=== PATIENT | male | born 1950 | race Caucasian/White ===

== ENCOUNTER 2023-02-24 07:50 | Outpatient (OUT) | payer MEDICARE, OTHER, SELFPAY ==
[2023-02-24 08:47] LABS: Basophils Percent Auto 0.5 % (0.2-2.0); Eosinophils Absolute Auto 0.3 10^3/uL (0.0-0.7); Eosinophils Percent Auto 5.3 % (0.9-7.0); Hematocrit 43.1 % (42.0-54.0); Immature Granulocytes Abs Auto 0.01 10^3/uL (0.00-0.03); Immature Granulocytes Pct Auto 0.2 % (0.0-0.5); Lymphocytes Absolute Auto 1.4 10^3/uL (1.2-3.8); Lymphocytes Percent Auto 24.5 % (20.5-60.0); Mean Corpuscular HGB Conc 32.5 g/dL (29.9-35.2); Mean Corpuscular Hemoglobin 32.3 pg (25.9-34.0); Mean Corpuscular Volume 99.5 fL (80.0-94.0); Mean Platelet Volume 11.1 fL (9.5-13.5); Monocytes Absolute Auto 0.6 10^3/uL (0.3-0.8); Monocytes Percent Auto 9.6 % (1.7-12.0); Neutrophils Absolute Auto 3.5 10^3/uL (1.4-6.5); Neutrophils Percent Auto 59.9 % (43.0-75.0); Platelet Count 142 10^3/uL (150-450); Red Blood Count 4.33 10^6/uL (4.70-6.10); Red Cell Distribution Width 13.1 % (11.0-15.0); White Blood Count 5.8 10^3/uL (4.0-11.0)
[2023-02-24 12:28] LABS: Prostate Specific Antigen Scrn 1.41 ng/mL (<=4.00)
[2023-02-24 12:46] LABS: Alanine Aminotransferase 23 U/L (16-63); Anion Gap 13.8; BUN Creatinine Ratio 21.4; Calcium 8.6 mg/dL (8.5-10.1); Carbon Dioxide 26.6 mmol/L (21.0-32.0); Chloride 106 mmol/L (98-107); Chol HDL Ratio 3.3; Cholesterol 178 mg/dL (<=200); Estimated GFR (African America >60 (>=60); Estimated GFR (Non-African Ame >60 (>=60); Glucose 89 mg/dL (74-106); HDL Cholesterol 54 mg/dL (40-60); LDL Cholesterol Calculated 112.8 mg/dL; Potassium 4.4 mmol/L (3.5-5.1); Sodium 142 mmol/L (136-145); Triglycerides 56 mg/dL (<=150); VLDL CHOLESTEROL 11.2 mg/dL
== END 2023-02-24 07:51 | disposition home or self-care (01) ==
LOC: LAB 07:50
PROVIDERS: PCP Internal Medicine; Visit Provider Internal Medicine
DX: Z79.899 Other long term (current) drug therapy (principal); E78.00 Pure hypercholesterolemia, unspecified; I10 Essential (primary) hypertension; Z12.5 Encounter for screening for malignant neoplasm of prostate
CPT/HCPCS: 36415; 80048; 80061; 84460; 85025; G0103

== ENCOUNTER 2024-03-01 11:32 | Outpatient (OUT) | payer MEDICARE, OTHER, SELFPAY ==
[2024-03-01 12:31] LABS: Basophils Percent Auto 0.5 % (0.2-2.0); Eosinophils Absolute Auto 0.1 10^3/uL (0.0-0.7); Eosinophils Percent Auto 1.4 % (0.9-7.0); Hematocrit 39.4 % (42.0-54.0); Hemoglobin 13.5 g/dL (14.0-18.0); Immature Granulocytes Abs Auto 0.02 10^3/uL (0.00-0.03); Immature Granulocytes Pct Auto 0.4 % (0.0-0.5); Lymphocytes Percent Auto 17.4 % (20.5-60.0); Mean Corpuscular HGB Conc 34.3 g/dL (29.9-35.2); Mean Corpuscular Volume 93.4 fL (80.0-94.0); Mean Platelet Volume 10.5 fL (9.5-13.5); Monocytes Absolute Auto 0.5 10^3/uL (0.3-0.8); Monocytes Percent Auto 8.7 % (1.7-12.0); Neutrophils Percent Auto 71.6 % (43.0-75.0); Platelet Count 199 10^3/uL (150-450); Red Blood Count 4.22 10^6/uL (4.70-6.10); Red Cell Distribution Width 12.7 % (11.0-15.0); White Blood Count 5.5 10^3/uL (4.0-11.0)
[2024-03-01 12:37] LABS: Alanine Aminotransferase 20 U/L (16-63); Albumin Globulin Ratio 1.3; Albumin Level 3.9 g/dL (3.4-5.0); Alkaline Phosphatase 91 U/L (46-116); Aspartate Amino Transferase 16 U/L (15-37); BUN Creatinine Ratio 12.5; Bilirubin Total 0.9 mg/dL (0.2-1.0); Calcium 8.9 mg/dL (8.5-10.1); Chloride 106 mmol/L (98-107); Chol HDL Ratio 2.9; Cholesterol 162 mg/dL (<=200); Estimated GFR (African America >60 (>=60); Estimated GFR (Non-African Ame >60 (>=60); Globulin 3.1 g/dL; Glucose 94 mg/dL (74-106); HDL Cholesterol 56 mg/dL (40-60); Potassium 4.2 mmol/L (3.5-5.1); Sodium 142 mmol/L (136-145); Triglycerides 50 mg/dL (<=150)
[2024-03-01 12:55] LABS: Anion Gap 14.2
[2024-03-01 13:28] LABS: Prostate Specific Antigen Scrn 1.77 ng/mL (<=4.00)
== END 2024-03-01 11:33 | disposition home or self-care (01) ==
LOC: LAB 11:34
PROVIDERS: PCP Internal Medicine; Visit Provider Internal Medicine
DX: E78.00 Pure hypercholesterolemia, unspecified (principal); I10 Essential (primary) hypertension; Z12.5 Encounter for screening for malignant neoplasm of prostate
CPT/HCPCS: 36415; 80053; 80061; 85025; G0103

== ENCOUNTER 2024-06-06 10:08 | Outpatient (OUT) | payer MEDICARE, OTHER, SELFPAY ==
[2024-06-06 10:25] LABS: Basophils Percent Auto 0.8 % (0.2-2.0); Eosinophils Absolute Auto 0.3 10^3/uL (0.0-0.7); Eosinophils Percent Auto 5.5 % (0.9-7.0); Hematocrit 39.6 % (42.0-54.0); Hemoglobin 13.6 g/dL (14.0-18.0); Immature Granulocytes Abs Auto 0.01 10^3/uL (0.00-0.03); Immature Granulocytes Pct Auto 0.2 % (0.0-0.5); Lymphocytes Absolute Auto 1.5 10^3/uL (1.2-3.8); Lymphocytes Percent Auto 28.9 % (20.5-60.0); Mean Corpuscular HGB Conc 34.3 g/dL (29.9-35.2); Mean Corpuscular Hemoglobin 32.1 pg (25.9-34.0); Mean Corpuscular Volume 93.4 fL (80.0-94.0); Mean Platelet Volume 10.2 fL (9.5-13.5); Monocytes Absolute Auto 0.5 10^3/uL (0.3-0.8); Monocytes Percent Auto 10.2 % (1.7-12.0); Neutrophils Absolute Auto 2.9 10^3/uL (1.4-6.5); Neutrophils Percent Auto 54.4 % (43.0-75.0); Platelet Count 196 10^3/uL (150-450); Red Blood Count 4.24 10^6/uL (4.70-6.10); Red Cell Distribution Width 12.9 % (11.0-15.0); White Blood Count 5.3 10^3/uL (4.0-11.0)
[2024-06-06 10:52] LABS: Percent Iron Saturation 61.8 %
[2024-06-07 05:07] LABS: Vitamin B12 679 pg/mL (232-1245)
== END 2024-06-06 10:09 | disposition home or self-care (01) ==
LOC: LAB 10:09
PROVIDERS: PCP Internal Medicine; Visit Provider Internal Medicine
DX: D64.9 Anemia, unspecified (principal)
CPT/HCPCS: 36415; 82607; 82728; 82746; 83540; 83550; 85025

== ENCOUNTER 2025-03-05 12:21 | Outpatient (OUT) | payer MEDICARE, OTHER, SELFPAY ==
--- OUTSIDE RECORDS SUMMARY | 2025-03-05 12:51 | XMS_ITS | CCD ---
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 Name Role Phone DR CLINTON FUENTES Primary Care Unavailable SHARLENE, DR TRIVEDI Admitting Unavailable SHARLENE, DR TRIVEDI Attending Unavailable SHARLENE, DR TRIVEDI Consulting Unavailable SHARLENE, DR TRIVEDI Admitting Unavailable BALL, DR TRIVEDI Attending Unavailable SHARLENE, DR TRIVEDI Consulting Unavailable SHARLENE, DR TRIVEDI Primary Care Unavailable Clinton Fuentes Unavailable CLINTON FUENTES Primary Care Physician [phone] Lino Dietrich Attending Unavailable DO Lino Dietrich Attending Unavailable NKANSAH-AMANKRA, ISHAAN Admitting Unavail able NKANSAH-AMANKRA, ISHAAN Attending Unavail able NKANSAH-AMANKRA, ISHAAN Referring Unavail able NKANSAH-AMANKRA, ISHAAN Admitting Unavail able NKANSAH-AMANKRA, ISHAAN Attending Unavail able NKANSAH-AMANKRA, ISHAAN Attending Unavail able CLINTON FUENTES Referring Unavailable NKANSAH-AMANKRA, ISHAAN Attending Unavail able NKANSAH-AMANKRA, ISHAAN Referring Unavail able NKANSAH-AMANKRA, ISHAAN Admitting Unavail able NKANSAH-AMANKRA, ISHAAN Attending Unavail able NKANSAH-AMANKRA, ISHAAN Referring Unavail able NKANSAH-AMANKRA, ISHAAN Admitting Unavail able NKANSAH-AMANKRA, ISHAAN Attending Unavail able NKANSAH-AMANKRA, ISHAAN Referring Unavail able NKANSAH-AMANKRA, ISHAAN Admitting Unavail able NKANSAH-AMANKRA, ISHAAN Admitting Unavail able NKANSAH-AMANKRA, ISHAAN Attending Unavail able NKANSAH-AMANKRA, ISHAAN Referring Unavail able Matty Sabillon Consulting Unavailable Matty Sabillon Consulting Unavailable DO Matty Sabillon III Consulting Unav ailable NKANSAH-AMANKRA, ISHAAN Admitting Unavail able NKANSAH-AMANKRA, ISHAAN Attending Unavail able NKANSAH-AMANKRA, ISHAAN Referring Unavail able NKANSAH-AMANKRA, ISHAAN Admitting Unavail able Matty Sabillon Consulting Unavailable NKANSAH-AMANKRA, ISHAAN Referring Unavail able NKANSAH-AMANKRA, ISHAAN Attending Unavail able Matty Sabillon Consulting Unavailable DO Matty Sabillon III Consulting Unav ailable NKANSAH-AMANKRA, ISHAAN Attending Unavail able NKANSAH-AMANKRA, ISHAAN Attending Unavail able NKANSAH-AMANKRA, ISHAAN Attending Unavail able Medications Current Medications Medication Drug Class(es) Dates Sig (Normalized) Sig (Original) acetaminophen 325 mg / oxyCODONE hydrochloride 5 mg oral tablet (6 sources) Opioid Agonist Start: 02-14-2023 take 1 tablet by mouth every six hours Percocet 5 mg-325 mg oral tablet 1 tab(s), Oral, q6hr, 12 tab(s), Refill(s) 0, [facility], 177, cm, 02/14/23 10:56:00 EDT, Height/Length Dosing, 80, kg, 02/14/23 10:56:00 EDT, Weight Dosing Start Date: 02/14/23 Status: Ordered aspirin 325 mg delayed release oral tablet (12 sources) Platelet Aggregation Inhibitor, Nonsteroidal Anti-inflammatory Drug Start: 01-25-2019 take 1 tablet by mouth once daily Ecotrin 325 mg Tab-EC 325 mg = 1 tab(s), Oral, Daily, # 21 tab(s), Refills(s) 0, Pharmacy: [id number] Start Date: 01/25/19 Status: Ordered Start: 05-28-2011 take 1 tablet by marisa th once daily aspirin 81 mg oral tablet 81 mg = 1 tab(s), Oral, Daily, tab(s), Prophylaxis Start Date: 05/28/11 Status: Ordered benazepril hydrochloride 5 mg oral tablet (20 sources) Angiotensin Converting Enzyme Inhibitor Start: 11-11-2023 End: 01-26-2024 Benazepril 5 mg tablet Active 0 .ROUTE .COMPLEX 90 January 26, 2024 6:49pm TAKE 1 TABLET EVERY DAY Start: 11-11-2023 End: 11-11-2023 take 1 tablet by mouth once daily Benazepril 5 mg tablet Discontinued 5 MG PO Daily November 11, 2023 12:00am November 11, 2023 8:43am Start: 06-04-2011 End: 11-11-2023 take 1 tablet by mouth once daily Benazepril 10 mg tablet Discontinued 1 TAB PO Daily March 15, 2019 12:00am November 11, 2023 8:10am Benazepril HCl 5 MG TAKE 1 TABLET EVERY DAY for 90 Active cephalexin 500 mg oral capsule (1 source) Cephalosporin Antibacterial Start: 02-14-2023 End: 02-28-2023 take 1 capsule by mouth four times daily cephalexin 500 mg Cap 500 mg = 1 cap(s), Oral, QID, X 14 day(s), # 56 cap(s), Refills(s) 0, Pharmacy: [facility], 177, cm, 02/14/23 10:56:00 EDT, Height/Length Dosing, 80, kg, 02/14/23 10:56:00 EDT, Weight Dosing Start Date: 02/14/23 Stop Date: 02/28/23 Status: Ordered citric acid 75 mg/ml / magnesium oxide 21.9 mg/ml / picosulfate sodium 0.0625 mg/ml oral solution (6 sources) Calculi Dissolution Agent, Anti-coagulant Start: 03-06-2019 Clenpiq 10-3.5-12 MG-GM -GM/160ML 160ml at 3pm, 160ml at 9pm the day prior to colonoscopy Orally BID for 1 days Feb, Active ibuprofen 600 mg oral tablet (6 sources) Nonsteroidal Anti-inflammatory Drug Start: 02-14-2023 take 1 tablet by mouth every six hours ibuprofen 600 mg Tab 600 mg = 1 tab(s), Oral, q6hr, # 40 tab(s), Refills(s) 0, Pharmacy: [facility] 1986, 177, cm, 02/14/23 10:56:00 EDT, Height/Length Dosing, 80, kg, 02/14/23 10:56:00 EDT, Weight Dosing Start Date: 02/14/23 Status: Ordered {20 (nirmatrelvir 150 MG Oral Tablet) / 10 (ritonavir 100 MG Oral Tablet) } Pack [Paxlovid 5-Day] (1 source) Paxlovid (300/10 0) 20 x 150 MG & 10 x 100MG as directed Orally bid for 5 days Active Completed/Discontinued Medications Medication Drug Class(es) Dates Sig (Normalized) Sig (Original) acetaminophen 325 mg / HYDROcodone bitartrate 5 mg oral tablet (6 sources) Opioid Agonist Start: 01-25-2019 Braxton 325 mg-5 mg oral tablet See Instructions, for pain, 40 tab(s), Refill(s) 0, 1 - 2 po q4-6h prn pain Dx: M17.11 Duration: 7 days, [id number] Start Date: 01/25/19 Status: Ordered ciprofloxacin 500 mg oral tablet (4 sources) Quinolone Antimicrobial Start: 07-31-2024 End: 09-07-2024 take 1 tablet by mouth twice daily Ciprofloxacin Hcl 500 mg tablet Discontinued 500 MG PO Twice daily August 02, 2024 1:00am September 07, 2024 10:01am phenazopyridine hydrochloride 200 mg oral tablet (4 sources) Start: 07-31-2024 End: 09-07-2024 take 1 tablet by mouth three times daily Phenazopyridine (Pyridium) 200 mg tablet Discontinued 200 MG PO Three times daily August 02, 2024 1:00am September 07, 2024 10:10am sulfamethoxazole 800 mg / trimethoprim 160 mg oral tablet (3 sources) Dihydrofolate Reductase Inhibitor Antibacterial, Sulfonamide Antimicrobial Start: 08-02-2024 End: 09-07-2024 take 1 tablet by mouth twice daily Sulfamethoxazole-Tr imethoprim 800-160 mg tablet Discontinued 1 TAB PO Twice daily August 02, 2024 1:00am September 07, 2024 10:01am tamsulosin hydrochloride 0.4 mg oral capsule (20 sources) alpha-Adrenergic Cecille Start: 01-12-2019 End: 09-07-2024 take 1 tablet by mouth at bedtime Tamsulosin 0.4 mg capsule Discontinued 1 TAB PO Bedtime March 15, 2019 12:00am February 03, 2024 9:50am triamcinolone acetonide 40 mg/ml injectable suspension (6 sources) Corticosteroid Start: 11-11-2022 Kenalog-40 October, 60 mg Problems Active Problems Problem Classification Problem Date Documented Date Episodic/Chronic Conditions associated with dizziness or vertigo (1 source) Benign paroxysmal vertigo, unspecified ear; Translations: [Benign paroxysmal positional vertigo] 12-01-2024 Episodic Deficiency and other anemia (1 source) Anemia; Translations: [Anemia, unspecified] 03-01-2024 Episodic Disorders of lipid metabolism (19 sources) Hypercholesterolemia; Translations: [Pure hypercholesterolemia, unspecified] Onset: 02-20-2019 Chronic Esophageal disorders (17 sources) Gastroesophageal reflux disease without esophagitis; Translations: [Gastro-esophageal reflux disease without esophagitis] Onset: 02-22-2019 03-01-2024 Chronic Comment on above: Problem List clean-u p per request of Phys. EHR Cmte Esophageal disorders (3 sources) Esophageal disorders; Translations: [Gastro-esophageal reflux disease with esophagitis, without bleeding] Essential hypertension (20 sources) Essential (primary) hypertension; Translations: [Essential hypertension] Onset: 05-15-2014 Chronic Genitourinary symptoms and ill-defined conditions (17 sources) Nocturia; Translations: [Blood in urine] Onset: 08-14-2024 Episodic Hyperplasia of prostate (20 sources) Lower urinary tract symptoms due to benign prostatic hypertrophy; Translations: [Benign prostatic hyperplasia with lower urinary tract symptoms] Onset: 05-15-2014 Chronic Immunizations and screening for infectious disease (3 sources) Vaccination given; Translations: [Encounter for immunization] Episodic Inflammatory conditions of male genital organs (8 sources) Acute prostatitis; Translations: [Acute prostatitis] 08-11-2024 Episodic Malaise and fatigue (6 sources) Fatigue; Translations: [Other fatigue] Onset: 02-20-2019 Episodic Open wounds of extremities (2 sources) Open wound of left thumb; Translations: [Unspecified open wound of left thumb without damage to nail, initial encounter] Onset: 02-14-2023 Episodic Other acquired deformities (3 sources) Spondylolysis; Translations: [Spondylolysis, lumbar region] Episodic Other acquired deformities (1 source) Spondylolysis, lumbar region Episodic Other aftercare (6 sources) 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; Translations: [OTH AQUATIC ECOLOGIST CURRENT DRUG THERAPY] Onset: 03-10-2021 Episodic Other aftercare (3 sources) Long-term current use of drug therapy; Translations: [Other residential (current) drug therapy] Episodic Other diseases of kidney and ureters (1 source) Urinary tract obstruction; Translations: [Other obstructive and reflux uropathy] Onset: 08-21-2024 Episodic Other ear and sense organ disorders (1 source) Impacted cerumen, bilateral; Translations: [Impacted cerumen] 12-01-2024 Episodic Other injuries and conditions due to external causes (3 sources) History of fall; Translations: [History of falling] Episodic Other nervous system disorders (1 source) Acute pain due to injury; Translations: [Acute pain due to trauma] Onset: 02-14-2023 Episodic Other nutritional; endocrine; and metabolic disorders (3 sources) Body mass index 30+ - obesity; Translations: [Body mass index 30.0-30.9, adult] Onset: 10-16-2015 Chronic Other nutritional; endocrine; and metabolic disorders (3 sources) Simple obesity ; Translations: [Other obesity due to excess calories] Onset: 05-15-2014 Chronic Other nutritional; endocrine; and metabolic disorders (3 sources) Overweight; Translations: [Overweight] Episodic Other screening for suspected conditions (not mental disorders or infectious disease) (14 sources) Encounter for screening for malignant neoplasm of prostate; Translations: [Encounter for screening for diseases of the blood and blood-forming organs and certain disorders involving the immune mechanism] Onset: 02-17-2018 Episodic Comment on above: Problem List clean-u p per request of Phys. EHR Cmte Other upper respiratory disease (3 sources) Seasonal allergic rhinitis; Translations: [Other seasonal allergic rhinitis] Onset: 10-16-2016 Chronic Other upper respiratory disease (3 sources) Allergic rhinitis; Translations: [Allergic rhinitis, unspecified] Onset: 12-06-2014 Chronic Other upper respiratory disease (9 sources) Allergic rhinitis due to pollen; Translations: [Allergic rhinitis due to pollen] Chronic Spondylosis; intervertebral disc disorders; other back problems (3 sources) Lumbosacral spondylosis without myelopathy; Translations: [Spondylosis without myelopathy or radiculopathy, lumbar region] Chronic Spondylosis; intervertebral disc disorders; other back problems (3 sources) Lumbar radiculopathy; Translations: [Radiculopathy, lumbar region] Episodic Unclassified (3 sources) Long-term current use of drug therapy; Translations: [Long-term (current) use of other medications] Onset: 12-08-2015 Urinary tract infections (1 source) Acute hemorrhagic cystitis; Translations: [Acute cystitis with hematuria] Onset: 07-31-2024 Episodic Past or Other Problems Problem Classification Problem Date Documented Da te Episodic/Chronic Abdominal pain (3 sources) Abdominal pain; Translations: [Unspecified abdominal pain] Onset: 12-20-2014 Episodic Allergic reactions (3 sources) Contact dermatitis; Translations: [Contact dermatitis and other eczema, due to unspecified cause] Onset: 04-18-2015 Episodic Bacterial infection; unspecified site (3 sources) Bacterial infectious disease; Translations: [Bacterial infection, unspecified, in conditions classified elsewhere and of unspecified site] Onset: 06-30-2016 Episodic Nonspecific chest pain (3 sources) Chest pain; Translations: [Chest pain, unspecified] Onset: 12-20-2014 Episodic Other ear and sense organ disorders (3 sources) Otalgia; Translations: [Otalgia, left ear] Onset: 06-30-2016 Episodic Other non-traumatic joint disorders (3 sources) Arthralgia of the lower leg; Translations: [Pain in joint, lower leg] Onset: 12-02-2018 Episodic Other non-traumatic joint disorders (3 sources) Arthralgia of the pelvic region and thigh; Translations: [Pain in joint, pelvic region and thigh] Onset: 04-18-2015 Episodic Other nutritional; endocrine; and metabolic disorders (3 sources) Body mass index 25-29 - overweight; Translations: [Body mass index 27.0-27.9, adult] Onset: 10-16-2015 Episodic Other upper respiratory infections (3 sources) Acute maxillary sinusitis; Translations: [Acute maxillary sinusitis, unspecified] Onset: 06-30-2016 Episodic Otitis media and related conditions (3 sources) Eustachian tube salpingitis; Translations: [Unspecified Eustachian salpingitis, left ear] Onset: 06-30-2016 Episodic Sprains and strains (6 sources) Sprain of left hip; Translations: [Unspecified sprain of left hip, initial encounter] Onset: 04-18-2015 Episodic Viral infection (1 source) COVID-19 Results Test Name Value Interpretation Reference Range Facility Ambulatory Visit Summaryon 0 10-24-2024 Ambulatory Visit Summary Ambulatory Visit Summary RODNEY GRAY :1950 Visit Date:10/24/2024 Ambulatory Visit Instructions Your Diagnosis BPH with obstruction/lower urinary tract symptoms Your Care Team Attending Physician - ISHAAN ROMERO MD Primary Care Physician - CLINTON FUENTES DO This Is Your Medications List Contact prescribing physician if questions or concerns benazepril (benazepril 10 mg Tab) ibuprofen (ibuprofen 600 mg Tab) Procedures Performed TURP - Transurethral resection of prostate (08/30/2024), Arthroscopy of knee (01/25/2019), Left Foot Surgery (2010), Tonsillectomy. Discharge Vitals Heart Rate (Peripheral) 63 Blood Pressure 116/72 Height 177 cm Height 70 in Weight 78 kg Weight 171.96 lb BMI 24.9 What to do next Scheduled Follow-Up Appointments Wednesday 9:45 AM EDT With: ISHAAN ROMERO MD Where: [facility] [address], [address] [place] [address]- You Need to Schedule the Following Appointments Follow Up with ISHAAN ROMERO MD, RADHA When: Comments: 6 month follow up Where: Medications What How Much When Instructions Unchanged benazepril (benazepril 10 mg Tab) 1 Tablets By Mouth Every day Contact prescribing physician if questions or concerns Unchanged ibuprofen (ibuprofen 600 mg Tab) 1 Tablets By Mouth Every 6 hours Contact prescribing physician if questions or concerns Allergies No Known Allergies Problems Ongoing - Any problem that you are currently receiving treatment for. Acute prostatitis with hematuria BPH with obstruction/lower urinary tract symptoms GERD (gastroesophageal reflux disease) Gross hematuria Hematuria HTN [Hypertension] Hypercholesterolemia Patient Survey You may receive a survey via text or e-mail asking about your office visit. Please share your experience with us by completing your survey. We appreciate your feedback and thank you for choosing us for your care. Education Materials Benign Prostatic Hyperplasia Benign prostatic hyperplasia (BPH) is an enlarged prostate gland that is caused by the normal aging process. The prostate may get bigger as a man gets older. The condition is not caused by cancer. The prostate is a walnut-sized gland that is involved in the production of semen. It is located in front of the rectum and below the bladder. The bladder stores urine. The urethra carries stored urine out of the body. An enlarged prostate can press on the urethra. This can make it harder to pass urine. The buildup of urine in the bladder can cause infection. Back pressure and infection may progress to bladder damage and kidney (renal) failure. What are the causes? This condition is part of the normal aging process. However, not all men develop problems from this condition. If the prostate enlarges away from the urethra, urine flow will not be blocked. If it enlarges toward the urethra and compresses it, there will be problems passing urine. What increases the risk? This condition is more likely to develop in men older than 50 years. What are the signs or symptoms? Symptoms of this condition include: ??? Getting up often during the night to urinate. ??? Needing to urinate frequently during the day. ??? Difficulty starting urine flow. ??? Decrease in size and strength of your urine stream. ??? Leaking (dribbling) after urinating. ??? Inability to pass urine. This needs immediate treatment. ??? Inability to completely empty your bladder. ??? Pain when you pass urine. This is more common if there is also an infection. ??? Urinary tract infection (UTI). How is this diagnosed? This condition is diagnosed based on your medical history, a physical exam, and your symptoms. Tests will also be done, such as: ??? A post-void bladder scan. This measures any amount of urine that may remain in your bladder after you finish urinating. ??? A digital rectal exam. In a rectal exam, your health care provider checks your prostate by putting a lubricated, gloved finger into your rectum to feel the back of your prostate gland. This exam detects the size of your gland and any abnormal lumps or growths. ??? An exam of your urine (urinalysis). ??? A prostate specific antigen (PSA) screening. This is a blood test used to screen for prostate cancer. ??? An ultrasound. This test uses sound waves to electronically produce a picture of your prostate gland. Your health care provider may refer you to a specialist in kidney and prostate diseases (urologist). How is this treated? Once symptoms begin, your health care provider will monitor your condition (active surveillance or watchful waiting). Treatment for this condition will depend on the severity of your condition. Treatment may include: ??? Observation and yearly exams. This may be the only treatment nee (more content not included)... Normal [facility] Urology Office/Clinic Noteon 10-24-2024 Urology Office/Clinic Note Urology Office/Clinic Note Chief Complaint follow up to TURP HPI Staff 73 year old male here for follow up to TURP 08/30/24 Previous Dx: bph with luts, Gross hematuria. cysto/trus 08/21/24 Patient denies any dysuria or gross hematuria. Noticing an improvement in nocturia only gets up 1x a night. Urgency/frequency. states he took Flomax for about 1 month and stopped it. History of Present Illness Pt is here for 6 week follow up due to Cysto/TURP on 08/30/2024. Physical Exam Vitals & Measurements HR: 63(Peripheral) BP: 116/72 HT: 177 cm HT: 70 in WT: 78 kg WT: 171.96 lb BMI: 24.9 Assessment/Plan Will return for follow up 6 months. 1. BPH with obstruction/lower urinary tract symptoms (N40.1: Benign prostatic hyperplasia with lower urinary tract symptoms) Pt is OP TURP on 08/30/2024 Pt's IPSS is 2; down from 14. Pt states that his urinary stream is most improved since procedure. Pt has stopped Tamsulosin. The pathology report was reviewed with the patient in detail today. There is no evidence of malignancy and no further evaluation of the tissue removed is planned. All questions were answered and the report discussed in terms that the patient could understand. Patient is status post transurethral resection of the prostate on 08/31. He is a lot better. IPSS score is down to 2 from 14. He notes improvement in his stream, decrease in urgency, frequency, nocturia. We discussed that he can continue stopping his Flomax and he will follow-up with me in 6 months for reassessment. Patient encouraged to do double timed voiding to ensure complete emptying. Ary Hernadez, personally scribed for Dr. Romero on 10/24/2024 09:44:05. . Documentation recorded by the [facility] park, accurately reflects the services(s) I performed and decisions made by me. Authenticated by Dr. Romero on 10/24/2024 09:51:50. Follow-up With When Contact Information ISHAAN ROMERO MD, URL Additional Instructions: 6 month follow up Patient Education Benign Prostatic Hyperplasia Problem List/Past Medical History Ongoing Acute prostatitis with hematuria BPH with obstruction/lower urinary tract symptoms GERD (gastroesophageal reflux disease) Gross hematuria Hematuria HTN [Hypertension] Hypercholesterolemia Historical No qualifying data Procedure/Surgical History TURP - Transurethral resection of prostate (08/30/2024), Arthroscopy of knee (01/25/2019), Left Foot Surgery (2010), Tonsillectomy. Medications benazepril 10 mg Tab, 10 mg= 1 tab(s), Oral, Daily ibuprofen 600 mg Tab, 1 tab(s), Oral, q6hr Allergies No Known Allergies Social History Alcohol - Low Risk, 05/28/2011 Never., 08/11/2024 Current, 1-2 times per month, 05/28/2011 Substance Abuse - Denies Substance Abuse, 04/28/2010 Never., 08/11/2024 Tobacco - Denies Tobacco Use, 04/28/2010 Never (less than 100 in lifetime) Tobacco Use:. Never Smokeless Tobacco Use:., 10/24/2024 Family History Acute myocardial infarction: Father. Diabetes mellitus: Mother. Immunizations Vaccine Date Status Comments diphtheria/pertussis, acel/tetanus adult 02/14/2023 Given SARS-CoV-2 (COVID-19) mRNA BNT-162b2 vax 09/20/2020 Given Prophylaxis SARS-CoV-2 (COVID-19) mRNA BNT-162b2 vax 08/30/[address] [facility] Comment on above: Result Comment: Elec tronically Signed By: ISHAAN ROMERO MD\.br\Date and Time Signed: 10/24/24 09:52 EDT\.br\Electronically Co-Signed By: Ary Villa.br\Date and Time Co-Signed: 10/24/24 09:45 EDT Ambulatory Visit Summaryon 0 09-01-2024 Ambulatory Visit Summary Ambulatory Visit Summary RODNEY GRAY :1950 Visit Date:09/01/2024 Ambulatory Visit Instructions Your Care Team Attending Physician - ISHAAN ROMERO MD Primary Care Physician - CLINTON FUENTES DO This Is Your Medications List benazepril (benazepril 10 mg Tab) phenazopyridine (Pyridium 100 mg Tab) tamsulosin (tamsulosin 0.4 mg Cap) Procedures Performed TURP - Transurethral resection of prostate (08/30/2024), Arthroscopy of knee (01/25/2019), Left Foot Surgery (2010), Tonsillectomy. What to do next Scheduled Follow-Up Appointments Wednesday 9:30 AM EDT With: ISHAAN ROMERO MD Where: [facility] [address], [address] [place] [address]- Medications What How Much When Instructions Unchanged benazepril (benazepril 10 mg Tab) 1 Tablets By Mouth Every day Unchanged phenazopyridine (Pyridium 100 mg Tab) 1 Tablets By Mouth 3 times a day Duration: 3 Days Unchanged tamsulosin (tamsulosin 0.4 mg Cap) 1 Capsules By Mouth Every day Allergies No Known Allergies Problems Ongoing - Any problem that you are currently receiving treatment for. Acute prostatitis with hematuria BPH with obstruction/lower urinary tract symptoms GERD (gastroesophageal reflux disease) Gross hematuria Hematuria HTN [Hypertension] Hypercholesterolemia Patient Survey You may receive a survey via text or e-mail asking about your office visit. Please share your experience with us by completing your survey. We appreciate your feedback and thank you for choosing us for your care. Normal [facility] Surgical Pathology Reporton 09-01-2024 Surgical Pathology Report [facility] [address] [place] [address]- Surgical Pathology Report Collected Date/Time: 08/30/2024 08:40 EST Pathologist: Luis Fernando BRITO PhD, Sera Shipman Received Date/Time: 08/30/2024 12:31 EST NICK BRITO, NICK BRITO, ISHAAN QUIROS 07 Surgical Pathology Report - 09/01/2024 12:25 EST - Auth (Verified) Final Diagnosis PROSTATE CHIPS, TRANSURETHRAL RESECTION: - BENIGN PROSTATIC TISSUE WITH PATCHY INFLAMMATION. - CYSTITIS CYSTICA. - BENIGN SKIN WITH HYPERKERATOSIS. (Electronic Signature) Sera Gould MD PhD 09/01/2024 12:25 Clinical Information bph with obstruction/luts and gross hematuria Pre-Op Diagnosis: bph with obstruction/luts and gross hematuria Procedure: cysto turp Post-Op Diagnosis: Benign prostatic hypertrophy with lower urinary tract symptoms Specimen(s) Received prostate chips Gross Description Received in formalin labeled with patient name, number, and prostate chips. The specimen consists of multiple segments of pink-giron rubbery tissue which in aggregate measure 8.2 x 5 x 2.5 cm and weigh 16 g. The specimen is entirely submitted in a total of 15 cassettes. (DC) DC:MCA Microscopic Description Microscopic examination performed unless gross only specified. This report was transcribed using voice recognition technology and might contain unintended computerized senior health consultant errors. [facility] Comment on above: Performed By: #### [id number] #### [facility] [address] [place] [address] Discharge Note-Nursingon Discharge Note-Nursing Discharge Note-Nursing RODNEY GRAY :1950 Visit Date:08/30/2024 Inpatient Discharge Instructions Your Care Team Admitting Physician - ISHAAN ROMERO MD Consulting Physician - Matty Sabillon III, DO Referring Physician - ISHAAN ROMERO MD Reason for Your Visit BPH WITH OBSTRUCTION/LUTS, GROSS HEMATURIA Your Diagnosis BPH with elevated PSA Elevated prostate specific antigen [PSA] HTN [Hypertension] Hypercholesterolemia GERD (gastroesophageal reflux disease) On deep vein thrombosis (DVT) prophylaxis This Is Your Medications List benazepril (benazepril 10 mg Tab) phenazopyridine (Pyridium 100 mg Tab) tamsulosin (tamsulosin 0.4 mg Cap) Procedure History TURP - Transurethral resection of prostate (08/30/2024), Arthroscopy of knee (01/25/2019), Left Foot Surgery (2010), Tonsillectomy. Discharge Vitals Temperature (Axillary) 36.4 ???C Heart Rate (Monitored) 54 Respiratory Rate 18 Blood Pressure 132/56 What to do next Instructions From Your Doctor Event Name Event Result Discharge Activity Ambulate as tolerated, Arrange for a responsible adult supervision for 24 hours, Expect mild pain, Expect minimal amount of drainage and/or bleeding, Activity as tolerated, Do not lift more than 5 lbs Discharge Restrictions No driving for 24 hrs, Do not make important decisions for 24 hours, Do not drink alcoholic beverages for 24 hours Discharge Diet(s) Regular Call Your Doctor For Persistent or heavy bleeding, Temperature above 101.5 degrees, Redness, swelling, or pus at operative site, Severe pain at the operative site, Persistent vomiting Pending Diagnostic Test Results None Discharge Instructions F/U 09/01 in office for cath removalHydrate with at least 2L/dayPain control w/ tylenol, motrin. Tae pyridium for burningF/U in 4-6 weeks in officeContinue flomax for 1 monthNo heavy lifting for 2 weeksStool softener OTC New Follow Up Appointments after Discharge Follow Up with CLINTON FUENTES When: 09/07/2024 10:00 AM EDT Where: [address] [place] [address]- Business (1) Follow Up with ISHAAN ROMERO When: Comments: 09/01 for cath removal, 1 month for office visit Call for followup appointment Medications What How Much When Instructions Next Dose Unchanged benazepril (benazepril 10 mg Tab) 1 Tablets By Mouth Every day 09/01/24 9am Unchanged phenazopyridine (Pyridium 100 mg Tab) 1 Tablets By Mouth 3 times a day Duration: 3 Days Pickup at [facility] 08/31/24 2pm Unchanged tamsulosin (tamsulosin 0.4 mg Cap) 1 Capsules By Mouth Every day 09/01/24 9am Pharmacy Information [facility] 1985: [address] [place] [id number] [phone] Test Results CBC HGB: 12.1 gm/dL Low (08/31/24 10:18:00) Hct: 35.4 % Low (08/31/24 10:18:00) Allergies No Known Allergies Problems Ongoing - Any problem that you are currently receiving treatment for. Acute prostatitis with hematuria BPH with obstruction/lower urinary tract symptoms GERD (gastroesophageal reflux disease) Gross hematuria Hematuria HTN [Hypertension] Hypercholesterolemia Education Materials Transurethral Resection of the Prostate, Care After The following information offers guidance on how to care for yourself after your procedure. Your health care provider may also give you more specific instructions. If you have problems or questions, contact your health care provider. What can I expect after the procedure? After the procedure, it is common to have: ??? Mild pain in your lower abdomen. ??? Soreness or mild discomfort in your penis or when you urinate. This is from having the catheter inserted during the procedure. ??? A sudden urge to urinate (urgency). ??? A need to urinate often. ??? A small amount of blood in your urine. You may notice some small blood clots in your urine. These are normal. Follow these instructions at home: Medicines ??? Take ljrn-rvj-ldtlyxr and prescription medicines only as told by your health care provider. ??? If you were prescribed an antibiotic medicine, take it as told by your health care provider. Do not stop taking the antibiotic even if you start to feel better. Activity ??? Rest as told by your health care provider. ??? Avoid sitting for a long time without moving. Get up to take short walks every 1???2 hours. This is important to improve blood flow and breathing. Ask for help if you feel weak or unsteady. You may increase your physical activity gradually as you start to feel better. ??? Do not drive or operate machinery until your health care provider says that it is safe. ??? Do not ride in a car for long periods of time, or as told by your health care provider. ??? Avoid intense physical activity for as long as told by your health care provider. ??? Do not lift anything that is heavier (more content not included)... [facility] Hct & Hgbon 08-31-2024 Hematocrit (Bld) [Volume fraction] 35.4 % Low 37.7-49.0 [facility] Comment on above: Performed By: #### [id number] #### [facility] [address] [place] [address] Hemoglobin (Bld) [Mass/Vol] 12.1 g/dL Low 13.5-17.5 [facility] Comment on above: Performed By: #### [id number] #### [facility] [address] [place] [address] Inpatient Clinical Summaryon 08-31-2024 Inpatient Clinical Summary Inpatient Clinical Summary [address] [address] Clinical Summary Person Information: Name: RODNEY GRAY Age: 73 Years : 1950 Sex: Male PCP: CLINTON FUENTES DO Marital Status: Race: White Ethnicity: Non- or Language: Chinese Visit Id: Visit Reason: BPH WITH OBSTRUCTION/LUTS, GROSS HEMATURIA Speciality: Acuity: Enc Type: Outpatient in a Bed [facility] Service: Surgery Arrival: 08/30/2024 05:51:36 Discharge: Dispo Type: Address: [address] [place] [id number] Provider Notes: Patient: RODNEY GRAY Age: 73 years Sex: Male : 1950 Associated Diagnoses: None Author: ISHAAN ROMERO MD Discharge Information Discharge Summary Information: Admitted 08/30/2024, Discharged 08/31/2024. Physical Examination General: Alert and oriented x 3, NAD Cardiovascular: Regular rate and rhythm Lungs: Nonlabored breathing on room air Extremities: No peripheral edema noted, SCD's in place, no calf tenderness noted on palpation Abdomen: Soft, nontender, nondistended with no guarding or rigidity noted : Three-way Arcos catheter in place with clear yellow urine off CBI Hospital Course Patient is a 73-year-old male with BPH with LUTS who presented for the aforementioned procedure. H&P was reviewed, informed consent was obtained, patient understood risk, benefits, alternatives of the procedure and wished to proceed. He underwent a TURP on 08/30. He did well in the postoperative period. He was ambulating without difficulty, pain was well-controlled, he was afebrile vital signs stable, CBI was weaned to clear yellow and on postop day 1 he was deemed appropriate for discharge. He will follow-up tomorrow for catheter removal in the office. Encourage patient to hydrate vigorously, he will continue his Flomax for 1 month. He will follow-up in the office in 4 to 6 weeks. Discharge Plan Discharge Time Discharge time > 30 min. Discharge Summary Plan Discharge Status: stable. Discharge instructions given: to patient. Discharge disposition: discharge to home into the care of family member. Prescriptions: continue same medications. Course Progressing as expected. Education and Follow-up Counseled: patient. Diagnosis: 2:Elevated prostate specific antigen [PSA]; 3:HTN [Hypertension]; 4:Hypercholesterolemi a; 5:GERD (gastroesophageal reflux disease); 6:On deep vein thrombosis (DVT) prophylaxis Problems Active Gross hematuria GERD (gastroesophageal reflux disease) BPH with obstruction/lower urinary tract symptoms Hypercholesterolemia Hematuria Acute prostatitis with hematuria HTN [Hypertension] Smoking Status: Functional Status: Sensory Deficits: History of Falls: Mobility Assistance Prior to Admission: ADLs: Minimal assistance Current Level of Assistance for Self-Care/Mobility: Cognitive Status: Allergies No Known Allergies Measurements: Height: Weight: Blood Pressure: 132 mmHg / 56 mmHg BMI: Procedures TURP - Transurethral resection of prostate (08/30/2024) Immunizations No Immunizations Documented This Visit Final Med List: benazepril (benazepril 10 mg Tab) 1 Tablets By Mouth every day. phenazopyridine (Pyridium 100 mg Tab) 1 Tablets By Mouth 3 times a day for 3 Days. Refills: 0. tamsulosin (tamsulosin 0.4 mg Cap) 1 Capsules By Mouth every day. Care Team Members: Attending Physician: ISHAAN ROMERO MD Consulting Physician: Matty Sabillon III, DO Referring Physician: ISHAAN ROMERO MD Follow up: With: Address: When: CLINTON FUENTES [address] [place] [id number] [facility] (1) 09/07/2024 10:00 AM With: Address: When: ISHAAN ROMERO Comments: 09/01 for cath removal, 1 month for office visit Call for followup appointment Patient Education Information: [facility] Inpatient Clinical Summary Inpatient Clinical Summary [address] [address] Clinical Summary Person Information: Name: RODNEY GRAY Age: 73 Years : 1950 Sex: Male PCP: CLINTON FUENTES DO Marital Status: Race: White Ethnicity: Non- or Language: Chinese Visit Id: Visit Reason: BPH WITH OBSTRUCTION/LUTS, GROSS HEMATURIA Speciality: Acuity: Enc Type: Outpatient in a Bed Med Service: Surgery Arrival: 08/30/2024 05:51:36 Discharge: Dispo Type: Address: [address] [place] [id number] Provider Notes: Diagnosis: Elevated prostate specific antigen [PSA] Problems Active Gross hematuria GERD (gastroesophageal reflux disease) BPH with obstruction/lower urinary tract symptoms Hypercholesterolemia Hematuria Acute prostatitis with hematuria HTN [Hypertension] Smoking Status: Functional Status: Sensory Deficits: History of Falls: Mobility Assistance Prior to Admission: ADLs: Current Level of Assistance for Self-Care/Mobility: Cognitive Status: Allergies No Known Allergies Measurements: Height: Weight: Blood Pressure: 144 mmHg / 78 mmHg BMI: Procedures TURP - Transurethral resection of prostate (08/30/2024) Immunizations No Immunizations Documented This Visit Final Med List: benazepril (benazepril 10 mg Tab) 1 Tablets By Mouth every day. phenazopyridine (Pyridium 100 mg Tab) 1 Tablets By Mouth 3 times a day for 3 Days. Refills: 0. tamsulosin (tamsulosin 0.4 mg Cap) 1 Capsules By Mouth every day. Care Team Members: Attending Physician: ISHAAN ROMERO MD Consulting Physician: Matty Sabillon III, DO Referring Physician: ISHAAN ROMERO MD Follow up: With: Address: When: ISHAAN ROMERO Comments: 09/01 for cath removal, 1 month for office visit With: Address: When: CLINTON FUENTES [address] [place] [address] Business (1) Patient Education Information: [facility] Inpatient Patient Summaryon 08-31-2024 Inpatient Patient Summary Inpatient Patient Summary [address] [address] Patient Discharge Instructions PERSON INFORMATION Name: RODNEY GRAY Date of : 1950 Current Date: 08/31/2024 11:51:16 PHYSICIANS Admitting Physician: ISHAAN ROMERO MD Primary Care Physician: CLINTON FUENTES DO PCP Comment: Discharge Diagnosis: 2:Elevated prostate specific antigen [PSA]; 3:HTN [Hypertension]; 4:Hypercholesterolemi a; 5:GERD (gastroesophageal reflux disease); 6:On deep vein thrombosis (DVT) prophylaxis Condition at Discharge: Stable RODNEY GRAY has been given the following list of follow-up instructions, prescriptions, and patient education materials: PATIENT FOLLOW-UP INFORMATION Diet: Regular Discharge Activity: Ambulate as tolerated, Arrange for a responsible adult supervision for 24 hours, Expect mild pain, Expect minimal amount of drainage and/or bleeding, Activity as tolerated, Do not lift more than 5 lbs Discharge Restrictions: No driving for 24 hrs, Do not make important decisions for 24 hours, Do not drink alcoholic beverages for 24 hours Wound Care Instructions: Remove Your Dressing In Days Call Your Doctor For: Persistent or heavy bleeding, Temperature above 101.5 degrees, Redness, swelling, or pus at operative site, Severe pain at the operative site, Persistent vomiting IF UNABLE TO CONTACT YOUR PHYSICIAN AND YOU FEEL IT IS AN EMERGENCY, GO TO THE NEAREST EMERGENCY ROOM OR CALL 911 Home Treatment: Devices/Equipment: Special Services: Additional Instructions: F/U 3/7 in office for cath removal Hydrate with at least 2L/day Pain control w/ tylenol, motrin. Tae pyridium for burning F/U in 4-6 weeks in office Continue flomax for 1 month No heavy lifting for 2 weeks Stool softener OTC Primary Care Physician to provide the following pending test results: None Follow up: With: Address: When: CLINTON FUENTES [address] [place] [address] Business (1) 09/07/2024 10:00 AM With: Address: When: ISHAAN ROMERO Comments: 09/01 for cath removal, 1 month for office visit Call for followup appointment In the event that this physician does not participate in your insurance network, please consult with your insurance company to find a nearby participating provider. Comment: ISAAC Hernadez LARRY A, have received the attached patient education materials/instruction s and have verbalized understanding: Patient Signature Date Clinican/Nurse Signature Date HERE ARE THE MEDICATION CHANGES THAT OCCURRED DURING YOUR HOSPITAL STAY Medications to Continue with No Changes [facility], [address] [place], [place] [id number], [phone] phenazopyridine (Pyridium 100 mg Tab) 1 Tablets By Mouth 3 times a day for 3 Days. Refills: 0. Last Dose: ____Next Dose: ____ Other Medications benazepril (benazepril 10 mg Tab) 1 Tablets By Mouth every day. Last Dose: ____Next Dose: ____ tamsulosin (tamsulosin 0.4 mg Cap) 1 Capsules By Mouth every day., Prostate Last Dose: ____Next Dose: ____ Comment: MEDICATION LIST PROVIDED FOR YOU IS A LIST OF YOUR CURRENT MEDICATIONS. PLEASE CARRY THIS WITH YOU AT ALL TIMES. benazepril (benazepril 10 mg Tab) 1 Tablets By Mouth every day. phenazopyridine (Pyridium 100 mg Tab) 1 Tablets By Mouth 3 times a day for 3 Days. Refills: 0. tamsulosin (tamsulosin 0.4 mg Cap) 1 Capsules By Mouth every day. [facility] Comment: PATIENT EDUCATION INFORMATION Instructions: Medication Leaflets: You may receive a survey from Eliza Roberts asking you to rate your care experience. Your feedback is important and will help us understand what we do well and how we can improve the quality of care we provide to you, your loved ones and our community. It???s an honor to serve you. Thank you for choosing [facility] Inpatient Patient Summary Inpatient Patient Summary [place] [address] Patient Discharge Instructions PERSON INFORMATION Name: RODNEY GRAY Date of : 1950 Current Date: 08/31/2024 09:45:44 PHYSICIANS Admitting Physician: ISHAAN ROMERO MD Primary Care Physician: CLINTON FUENTES DO PCP Comment: Discharge Diagnosis: Elevated prostate specific antigen [PSA] Condition at Discharge: Stable RODNEY GRAY has been given the following list of follow-up instructions, prescriptions, and patient education materials: PATIENT FOLLOW-UP INFORMATION Diet: Regular Discharge Activity: Ambulate as tolerated, Arrange for a responsible adult supervision for 24 hours, Expect mild pain, Expect minimal amount of drainage and/or bleeding, Activity as tolerated, Do not lift more than 5 lbs Discharge Restrictions: No driving for 24 hrs, Do not make important decisions for 24 hours, Do not drink alcoholic beverages for 24 hours Wound Care Instructions: Remove Your Dressing In Days Call Your Doctor For: Persistent or heavy bleeding, Temperature above 101.5 degrees, Redness, swelling, or pus at operative site, Severe pain at the operative site, Persistent vomiting IF UNABLE TO CONTACT YOUR PHYSICIAN AND YOU FEEL IT IS AN EMERGENCY, GO TO THE NEAREST EMERGENCY ROOM OR CALL 911 Home Treatment: Devices/Equipment: Special Services: Additional Instructions: F/U 09/01 in office for cath removal Hydrate with at least 2L/day Pain control w/ tylenol, motrin. Tae pyridium for burning F/U in 4-6 weeks in office Continue flomax for 1 month No heavy lifting for 2 weeks Stool softener OTC Primary Care Physician to provide the following pending test results: None Follow up: With: Address: When: ISHAAN ROMERO Comments: 09/01 for cath removal, 1 month for office visit With: Address: When: CLINTON FUENTES [address] [place] [id number] Business (1) In the event that this physician does not participate in your insurance network, please consult with your insurance company to find a nearby participating provider. Comment: IISAAC LARRY A, have received the attached patient education materials/instruction s and have verbalized understanding: Patient Signature Date Clinican/Nurse Signature Date HERE ARE THE MEDICATION CHANGES THAT OCCURRED DURING YOUR HOSPITAL STAY New Medications [facility] 1985, [address] [place], [place] [id number], [phone] phenazopyridine (Pyridium 100 mg Tab) 1 Tablets By Mouth 3 times a day for 3 Days. Refills: 0. Last Dose: ____Next Dose: ____ Medications to Continue with No Changes Other Medications benazepril (benazepril 10 mg Tab) 1 Tablets By Mouth every day. Last Dose: ____Next Dose: ____ tamsulosin (tamsulosin 0.4 mg Cap) 1 Capsules By Mouth every day., Prostate Last Dose: ____Next Dose: ____ Comment: MEDICATION LIST PROVIDED FOR YOU IS A LIST OF YOUR CURRENT MEDICATIONS. PLEASE CARRY THIS WITH YOU AT ALL TIMES. benazepril (benazepril 10 mg Tab) 1 Tablets By Mouth every day. phenazopyridine (Pyridium 100 mg Tab) 1 Tablets By Mouth 3 times a day for 3 Days. Refills: 0. tamsulosin (tamsulosin 0.4 mg Cap) 1 Capsules By Mouth every day. Pharmacy Information: [facility] Comment: PATIENT EDUCATION INFORMATION Instructions: Medication Leaflets: You may receive a survey from Eliza Roberts asking you to rate your care experience. Your feedback is important and will help us understand what we do well and how we can improve the quality of care we provide to you, your loved ones and our community. It???s an honor to serve you. Thank you for choosing [facility] Interdisciplinary Note - Joss e Manageron 03-06-2025 Interdisciplinary Note - Curriculum Coordinator Interdisciplinary Note - Curriculum Coordinator CRM to room 309 Patient is awake, alert and oriented. Patient is from home. Patient verified his PCP, DME and insurance. Patient spouse is his ride at [place]. Patient is an outpatient sx status. He had a TURP on 08/30. Patient is assigned to Dr Mendoza, see notes. Patient declines any concerns to return home at [place]. He will DC with arcos. He declines any needs for DME, HH or Paramed. Patient was provided CRM contact, white board updated. CRM following Per Patient he will DC later this afternoon [facility] Comment on above: Result Comment: Elec tronically Signed By: Any Lui\.br\Date and Time Signed: 08/31/24 09:36 EST Main OR Intraoperative Recor don 08-31-2024 Main OR Intraoperative Record Main OR Intraoperative Record IntraOp Document Type FT Summary Primary Physician: ISHAAN ROMERO MD Finalized Date/Time: 08/31/24 07:59:24 Pt. Name: ISAACRODNEY/Sex: 1950 Male Med Rec #: [id number] Physician: ISHAAN ROMERO MD Financial #: [id number] Pt. Type: O Room/Bed: N3/ Admit/Disch: 08/30/24 05:51:36 - Institution: Case Times FT Entry 1 Patient Times In Room 08/30/24 07:52:00 Out Room 08/30/24 09:18:00 Procedure Times Start 08/30/24 08:05:00 Stop 08/30/24 09:08:00 Anesthesia Times Start 08/30/24 07:52:00 Stop 08/30/24 09:18:00 Last Modified By: Haydee Mahoney 08/30/24 09:23:46 General Comments: 08/31/24 Chart opened to review and send charges LRoth CSFA Case Attendance FT Entry 1 Entry 2 Entry 3 Case Attendee Murray Arreola MD, Haydee Mahoney Role Performed Anesthesiologist Surgeon - Primary Rental Sales Representative - Primary Viscosity Worker Time In 08/30/24 07:52:00 08/30/24 07:52:00 08/30/24 07:52:00 Time Out 08/30/24 09:18:00 08/30/24 09:18:00 08/30/24 09:18:00 Procedure CYSTOSCOPY TURP(.) CYSTOSCOPY TURP(.) CYSTOSCOPY TURP(.) Comments IS SUPERVISING Last Modified By: Haydee Mahoney Kelsie E Burgderfer, Kelsie E 08/30/24 09:23:47 08/30/24 09:23:47 08/30/24 09:23:47 Entry 4 Case Attendee Joanna Cason CST Role Performed Scrub - Primary Time In 08/30/24 07:52:00 Time Out 08/30/24 09:18:00 Procedure CYSTOSCOPY TURP(.) Comments Last Modified By: Haydee Mahoney 08/30/24 09:23:47 Perioperative Protocols FT Pre-Care Text: Implements protective measures prior to operative or invasive procedure, confirms identity before the operative or invasive procedure, verifies operative procedure, surgical site, and laterality Entry 1 Procedure(s) CYSTOSCOPY TURP(.) Patient Identity Birthday, ID Band Verified (select at Check, Patient least 2): Participation Consents / H and P Anesthesia Consent, Operative Site N/A Verified H&P, Surgery/Procedure Marking Verified Consent, Transfusion Consent Surgical Site Yes Laterality Verified n/a Verified Procedure Verified Yes Correct Patient Yes Position Verified Availability Equipment, Medication Prep Dry n/a Verified (If Applicable) PreOp Antibiotic Yes Time Out Haydee Mahoney, Given Participants Joanna Cason CST, Gower CAA, John C., NKANSAH-AMANKRA MD, ISHAAN Time Out Complete 08/30/24 08:04:00 Outcomes Met? Yes Last Modified By: Haydee Mahoney 08/30/24 08:23:31 Post-Care Text: The patient is free from signs and symptoms of injury caused by extraneous objects Allergy Information FT Pre-Care Text: Verifies allergies Entry 1 Allergies Reviewed? Yes Allergies Reviewed Self/Patient With Outcomes Met? Yes Last Modified By: Haydee Mahoney 08/30/24 08:16:01 Post-Care Text: The patient received appropriate medication(s) safely administered during the perioperative period Surgical Procedures FT Entry 1 Procedure Description Procedure CYSTOSCOPY TURP Modifiers . Surgeon Description CYSTO TURP Primary Procedure Yes Primary Surgeon ISHAAN ROMERO MD Start 08/30/24 08:05:00 Stop 08/30/24 09:08:00 Anesthesia Type General Surgical Service Urology Wound Class 2 - Clean-Contaminated Last Modified By: Haydee Mahoney 08/30/24 09:23:50 General Case Data FT Pre-Care Text: Classifies surgical wound, implements aseptic technique, initiates traffic control Entry 1 Case Information OR OR 1 FT Case Level Level 3 Wound Class 2 - Clean-Contaminated Specialty Urology ASA Class 3 Preop Diagnosis BPH WITH Postop Same As Preop Yes OBSTRUCTION/LUTS, GROSS HEMATURIA Postop Diagnosis BPH WITH Outcomes Met? Yes OBSTRUCTION/LUTS, GROSS HEMATURIA Last Modified By: Haydee Mahoney 08/30/24 08:16:23 Post-Care Text: The patient is free from signs and symptoms of infection Skin Assessment (Pre Procedure) FT Pre-Care Text: Implements protective measures to prevent skin/ tissue injury due to thermal or mechanical sources Evaluates for signs and symptoms of physical injury to skin and tissue Entry 1 Skin Integrity Intact, [place], Warm, & Skin Abnormality No Dry Outcomes Met? Yes Last Modified By: Haydee Mahoney 08/30/24 08:16:49 Post-Care Text: The patient is free from signs and symptoms of injury caused by extraneous objects Patient Positioning FT Pre-Care Text: Identifies physical alterations that require additional precautions for procedure-specific positioning, verifies presence of prosthetics or corrective devices, positions the patient, evaluates the patient for signs and symptoms of injury as a result of positioning Entry 1 Procedure CYSTOSCOPY TURP(.) Body Position Low Lithotomy Feet Uncrossed? Yes Left Arm Position Resting at Side Right Arm Position Resting at Side Le (more content not included)... Normal [facility] Main OR PACU I Recordon 030 Main OR PACU I Record Main OR PACU I Rec ord PACU Phase I Document Type FT Summary Primary Physician: ISHAAN ROMERO MD Finalized Date/Time: 08/30/24 10:46:09 Pt. Name: RODNEY GRAY Mayur Banda./Sex: 1950 Male Med Rec #: [id number] Physician: ISHAAN ROMERO MD Financial #: [id number] Pt. Type: O Room/Bed: [facility]/ Admit/Disch: 08/30/24 05:51:36 - Institution: Case Times PACU I FT Pre-Care Text: Identifies barriers to communication and implements measures to provide psychological support Develops individualized plan of care, and ensures continuity of care Maintains patient's dignity and privacy, and maintains patient confidentiality Identifies and reports philosophical, cultural, and spiritual beliefs and values Identifies individual values and wishes concerning care Implements aseptic technique, and administers prescribed antibiotic therapy and immunizing agents as ordered Evaluates postoperative tissue perfusion Implements thermoregulation measures, and monitors body temperature Evaluates postoperative respiratory status Evaluates postoperative cardiac status Evaluates postoperative neurological status Assesses pain control, collaborated in initiating patient-controlled analgesia and implements alternative methods of pain control Verifies allergies, administers prescribed medications and solutions, evaluates response to medications Entry 1 In PACU I 08/30/24 09:20:00 Discharge from PACU 08/30/24 09:58:00 I Outcomes Met? Yes Last Modified By: Armani GILBERT, Jahaira Red 08/30/24 10:45:54 Post-Care Text: The patient demonstrates knowledge of the expected response to the operative or invasive procedure The patient's care is consistent with the individualized perioperative plan of care The patient's right to privacy is maintained The patient's value system, lifestyle, ethnicity, and culture are considered, respected, and incorporated into the perioperative plan of care The patient participates in decisions affecting his or her perioperative plan of care The patient is free from signs and symptoms of infection The patient has wound/tissue perfusion consistent with or improved from baseline levels established preoperatively The patient is at or returning to normothermia at the conclusion of the immediate postoperative period The patient's respiratory function is consistent with or improved from baseline levels established preoperatively The patient's cardiovascular status is consistent with or improved from baseline levels established preoperatively The patient's cardiovascular status is consistent with or improved from baseline levels established preoperatively The patient demonstrates and/or reports adequate pain control throughout the perioperative period The patient received appropriate medication(s), safely administered during the perioperative period Acuity Level PACU I FT Entry 1 Start Time 08/30/24 09:20:00 Stop Time 08/30/24 09:58:00 Acuity Level Acuity Level I Last Modified By: Jahaira Lomeli RN 08/30/24 10:46:05 Finalized By: Jahaira Lomeli RN Document Signatures Signed By: Jahaira Lomeli RN 08/30/24 10:[address] [facility] Main OR PACU II Recordon Main OR PACU II Record Main OR PACU II Record PACU Phase II Document Type FT Summary Primary Physician: ISHAAN ROMERO MD Finalized Date/Time: 08/30/24 13:07:04 Pt. Name: ISAACRODNEY D.O.B./Sex: 1950 Male Med Rec #: [id number] Physician: ISHAAN ROMERO MD Financial #: [id number] Pt. Type: O Room/Bed: [facility] Admit/Disch: 08/30/24 05:51:36 - Institution: Case Times PACU II FT Pre-Care Text: Identifies barriers to communication and implements measures to provide psychological support and determines knowledge level Develops individualized plan of care, and ensures continuity of care Maintains patient's dignity and privacy, and maintains patient confidentiality Identifies and reports philosophical, cultural, and spiritual beliefs and values Identifies individual values and wishes concerning care administers prescribed antibiotic therapy and immunizing agents as ordered, Evaluates postoperative tissue perfusion Implements thermoregulation measures, and monitors body temperature Evaluates postoperative respiratory status Evaluates postoperative cardiac status Evaluates postoperative neurological status Assesses pain control, collaborated in initiating patient-controlled analgesia and implements alternative methods of pain control Verifies allergies, administers prescribed medications and solutions, evaluates response to medications Entry 1 In PACU II 08/30/24 10:00:00 Discharge from PACU 08/30/24 12:40:00 II Outcomes Met? Yes Last Modified By: Caroline Page RN 08/30/24 13:07:03 Post-Care Text: The patient demonstrates knowledge of the expected response to the operative or invasive procedure The patient's care is consistent with the individualized perioperative plan of care The patient's right to privacy is maintained The patient's value system, lifestyle, ethnicity, and culture are considered, respected, and incorporated into the perioperative plan of care The patient participates in decisions affecting his or her perioperative plan of care. The patient is free from signs and symptoms of infection The patient has wound/tissue perfusion consistent with or improved from baseline levels established preoperatively The patient is at or returning to normothermia at the conclusion of the immediate postoperative period The patient's respiratory function is consistent with or improved from baseline levels established preoperatively The patient's cardiovascular status is consistent with or improved from baseline levels established preoperatively The patient's neurological status is consistent with or improved from baseline levels established preoperatively The patient demonstrates and/or reports adequate pain control throughout the perioperative period The patient received appropriate medication(s), safely administered during the perioperative period Finalized By: Caroline Page RN Document Signatures Signed By: Caroline Page RN 08/30/24 13:[address] [facility] Main OR Preoperative Recordo n 08-30-2024 Main OR Preoperative Record Main OR Preoperative Record PreOp Document Type FT Summary Primary Physician: ISHAAN ROMERO MD Finalized Date/Time: 08/30/24 08:17:02 Pt. Name: ISAACRODNEY/Sex: 1950 Male Med Rec #: [id number] Physician: ISHAAN ROMERO MD Financial #: [id number] Pt. Type: A Room/Bed: [place] [address] Admit/Disch: 08/30/24 05:51:36 - Institution: Case Times PreOp FT Pre-Care Text: Verifies consent for planned procedure, identifies individual values and wishes concerning care, includes family members in perioperative teaching Entry 1 Patient Times. In Pre Surgery 08/30/24 05:55:00 Out Pre Surgery 08/30/24 07:50:00 Outcomes Met? Yes Last Modified By: Haydee Mahoney 08/30/24 08:16:58 Post-Care Text: The patient participates in decisions affecting his or her perioperative plan of care Finalized By: Haydee Mahoney Document Signatures Signed By: Haydee Mahoney 08/30/24 08:16 Haydee Mahoney 08/30/24 08:[address] [facility] Operative Reporton Operative Report Operative Report Patient: RODNEY GRAY Age: 73 years Sex: Male : 1950 Associated Diagnoses: None Author: ISHAAN ROMERO MD Procedure Surgeon: Ishaan Romero MD Pre-op Diagnosis: Benign prostatic hypertrophy with lower urinary tract symptoms Post-op Diagnosis: Benign prostatic hypertrophy with lower urinary tract symptoms Procedure: 1. Cystourethroscopy 2. Transurethral resection of prostate Anesthesia: General endotracheal Antibiotics: 2000 mg cefazolin IV Indications: Patient is a 73 YEAR OLD male who presents with a history of BPH and lower urinary tract symptoms including nocturia and weak stream refractory to medical management. He was offered a transurethral resection of the prostate. Risks, alternatives, and benefits were discussed and the patient elected to proceed. Informed consent was obtained. Findings: Trilobar hyperplasia of the prostate with slightly prominent median lobe resected to create wide open, grade 1 trabeculations of the bladder, short prostatic length Procedure details: The patient was taken to the operating room and placed on the operating room table. General anesthesia was induced appropriately and patient was placed in dorsal lithotomy position. Preoperative antibiotics were given and EPC cuffs were placed and working. The patient was prepped and draped in the usual sterile fashion. Surgical time-out indicating correct patient, procedure and positioning was performed. We began by inserting a 30 degree cystoscopic lens with continuous flow 26 Armenian Olympus rigid sheath into the patient???s urethra. We advanced our scope and evaluated the prostatic urethral segment and which showed evidence of mild trilobar hyperplasia and 2 cm prostatic urethral segment. We then entered the bladder and proceeded to perform a complete cystoscopic visualization of the patient???s bladder in stepwise fashion evaluating left lateral wall, right lateral wall, posterior wall, trigone/floor. . Ureteral orifices were identified and noted to be in orthotopic position bilaterally. The Olympus resectoscope was then inserted after we removed our obturator and placed our working bridge through our continous flow sheath. We began by resecting the bladder neck circumferentially in short segments taking care to avoid the ureteral orifices. We then turned our attention to the right lateral lobe which we made a groove to the verumontanum delineating the distal extent of resection to protect the external sphincter. We proceeded to resect along the right lateral lobe in a clockwise fashion from the 7:00 position to the 12 o???clock position the adenomatous tissue down to the prostatic capsule. We then turned our attention to the left lateral lobe which we resected in a similar fashion in a counter-clockwise fashion from the 5 o???clock position to the 12 o???clock position. Finally we turned our attention to the apical tissue, which we resected to the verumontanum. We used an [employer] evacuator to obtain all resected prostatic chips. We then re-visualized our resection bed and achieved adequate and persistent hemostasis with irrigation turned off. Both ureteral orifices were noted to be uninvolved in the resection. We did not resect distal to the verumontanum. The scope was removed and a 22-equatorial guinean 3-way Arcos catheter was inserted using a catheter guide and irrigated to confirm position. Continuous bladder irrigation with normal saline was then initiated. The procedure was then terminated. The patient tolerated the procedure well and there were no intraoperative complications. The patient was awoken from anesthesia without issue and transferred to PACU in good condition. All instruments and equipment were accounted for at the end of the procedure. I was present and scrubbed for the entire procedure. Complications: None Implants: None Specimens: Prostate chips sent for pathology Drains: [address] Arcos catheter Estimated Blood Loss: 10 cc IV Fluids: Per anesthesia Normal [facility] Comment on above: Result Comment: Elec tronically Signed By: NICK BRITO, ISHAAN\.lety\Date and Time Signed: 08/30/24 09:39 EST BMPon 08-29-2024 Anion gap [Moles/Vol] 10 mmol/L Normal 6-16 [facility] Comment on above: Performed By: #### 2 [id number] #### [facility] [address] [place] [address] Calcium [Mass/Vol] 9.1 mg/dL Normal 8.9-11.1 [facility] Comment on above: Performed By: #### 2 [id number] #### [facility] [address] [place] [address] Chloride [Moles/Vol] 104 mmol/L Normal 101-111 [facility] Comment on above: Performed By: #### 2 [id number] #### [facility] [address] [place] [address] CO2 [Moles/Vol] 28 mmol/L Normal 21-31 [facility] Comment on above: Performed By: #### 2 [id number] #### [facility] [address] [place] [address] Creatinine [Mass/Vol] 0.9 mg/dL Normal 0.5-1.3 [facility] Comment on above: Performed By: #### 2 [id number] #### [facility] [address] [place] [address] Glucose [Mass/Vol] 95 mg/dL Normal 55-199 [facility] Comment on above: Performed By: #### 2 [id number] #### [facility] [address] [place] [address] Potassium [Moles/Vol] 4.2 mmol/L Normal 3.5-5.3 [facility] Comment on above: Performed By: #### 2 [id number] #### [facility] [address] [place] [address] Sodium [Moles/Vol] 138 mmol/L Normal 135-145 [facility] Comment on above: Performed By: #### 2 [id number] #### [facility] [address] [place] [address] Urea nitrogen [Mass/Vol] 15 mg/dL Normal 5-21 [facility] Comment on above: Performed By: #### 2 [id number] #### [facility] [address] [place] [address] Urea nitrogen/Creatinine [Mass ratio] 17 No Units Normal 10-20 [facility] Comment on above: Performed By: #### 2 [id number] #### [facility] [address] [place] [address] CBC w/ Auto Diffon 5 Basophils/100 WBC (Bld) 0.5 % Normal 0.0-2.0 [facility] Comment on above: Performed By: #### 2 [id number] #### [facility] [address] [place] [address] Basophils/Leukocytes Auto (Bld) [Pure # fraction] 0.0 E9/L Normal 0.0-0.2 [facility] Comment on above: Performed By: #### 2 [id number] #### [facility] [address] [place] [address] Eosinophils (Bld) [#/Vol] 0.2 E9/L Normal 0.0-0.5 [facility] Comment on above: Performed By: #### 2 [id number] #### [facility] [address] [place] [address] Eosinophils/100 WBC (Bld) 3.7 % Normal 0.0-8.0 [facility] Comment on above: Performed By: #### 2 [id number] #### [facility] [address] [place] [address] Erythrocyte distribution width (RBC) [Ratio] 13.6 % Normal 10.9-14.2 [facility] Comment on above: Performed By: #### 2 [id number] #### [facility] [address] [place] [address] Hematocrit (Bld) [Volume fraction] 37.3 % Low 37.7-49.0 [facility] Comment on above: Performed By: #### 2 [id number] #### [facility] [address] [place] [address] Hemoglobin (Bld) [Mass/Vol] 13.1 g/dL Low 13.5-17.5 [facility] Comment on above: Performed By: #### 2 [id number] #### [facility] [address] [place] [address] Lymphocytes (Bld) [#/Vol] 1.3 E9/L Normal 1.0-4.0 [facility] Comment on above: Performed By: #### 2 [id number] #### [facility] [address] [place] [address] Lymphocytes/100 WBC (Bld) 19.2 % Normal 14.0-50.0 [facility] Comment on above: Performed By: #### 2 [id number] #### [facility] [address] [place] [address] MCH (RBC) [Entitic mass] 32.2 pg Normal 27.0-34.0 [facility] Comment on above: Performed By: #### 2 [id number] #### [facility] [address] [place] [address] MCHC (RBC) [Mass/Vol] 35.2 g/dL Normal 31.4-36.0 [facility] Comment on above: Performed By: #### 2 [id number] #### [facility] [address] [place] [address] MCV (RBC) [Entitic vol] 91.6 fL Normal 80.0-100.0 [facility] Comment on above: Performed By: #### 2 [id number] #### [facility] [address] [place] [address] Monocytes (Bld) [#/Vol] 0.6 E9/L Normal 0.2-1.0 [facility] Comment on above: Performed By: #### 2 [id number] #### [facility] [address] [place] [address] Neutrophils (Bld) [#/Vol] 4.5 E9/L Normal 2.0-7.5 [facility] Comment on above: Performed By: #### 2 [id number] #### [facility] [address] [place] [address] Neutrophils/100 WBC (Bld) 67.6 % Normal 36.0-75.0 [facility] Comment on above: Performed By: #### 2 [id number] #### [facility] [address] [place] [address] Platelet 182.0 E9/L Normal 150.0-500.0 [facility] Comment on above: Performed By: #### 2 [id number] #### [facility] [address] [place] [address] Platelet mean volume (Bld) [Entitic vol] 8.5 fL Normal 6.4-10.8 [facility] Comment on above: Performed By: #### 2 [id number] #### [facility] [address] [place] [address] RBC (Bld) [#/Vol] 4.1 E12/L Low 4.3-5.9 [facility] Comment on above: Performed By: #### 2 [id number] #### [facility] [address] [place] [address] WBC corrected for nucl RBC Auto (Bld) [#/Vol] 6.6 E9/L Normal 4.0-11.0 [facility] Comment on above: Performed By: #### 2 [id number] #### [facility] [address] [place] [address] CHEMISTRYOrdered By: SYSTEM SYSTEM on 08-29-2024 Anion gap [Moles/Vol] 10 mmol/L Normal 6 - 16 mEq/L R emisol Chem Calcium [Mass/Vol] 9.1 mg/dL Normal 8.9 - 11. 1 mg/dL [facility] Chloride [Moles/Vol] 104 mmol/L Normal 101 - 1 11 mmol/L [facility] CO2 [Moles/Vol] 28 mmol/L Normal 21 - 31 mmol/L [facility] Creatinine [Mass/Vol] 0.9 mg/dL Normal 0.5 - 1.3 mg/dL [facility] eGFR 90 mL/min/1.73 m2 Normal >=59mL/min /1 .73 m2 [facility] Glucose [Mass/Vol] 95 mg/dL Normal 55 - 199 mg/dL [facility] Potassium [Moles/Vol] 4.2 mmol/L Normal 3.5 - 5.3 mmol/L [facility] Sodium [Moles/Vol] 138 mmol/L Normal 135 - 145 mmol/L [facility] Urea nitrogen [Mass/Vol] 15 mg/dL Normal 5 - 21 mg/dL [facility] Urea nitrogen/Creatinine [Mass ratio] 17 mg/mg Normal 10 - 20 [facility] COAGULATIONOrdered By: Amy Chauhan on 08-29-2024 aPTT Coag (PPP) [Time] 34.4 s Normal 25.1 - 36.5 second(s) [facility] Auto Coag Comment on above: Interpretive Data: P arameter 15 days - 4 weeks 1 - 5 months 6 - 11 months 1 - 5 years 6 - 10 years 11 - 17 years PTT Mean: 35.4 (27.6-45.6) Mean: 33.5 (24.8-40.7) Mean: 32.4 (25.1-40.7) Mean: 31.6 (24.0-39.2) Mean: 31.6 (26.9-38.7) Mean: 31.0 (24.6-38.4) Pediatric Reference ranges were obtained from a study by Isidro Tong et al. prepared from 1437 samples obtained at 7 different centers using the same coagulation reagent and instrumentation as [facility]. Currently there are no coagulation studies available worldwide for children to 14 days, and no normal ranges. Heparin therapeutic range (represented by Anti-Factor Xa activity of 0.2 - 0.4 U/mL) corresponds to PTT of 56.6 - 109.0 sec. INR Coag (PPP) [Relative time] 0.97 {INR} Invalid Interpretation Code [facility] Comment on above: Interpretive Data: I NR results are specifically intended to assess patients stabilized on long-term Anticoagulation therapy suggested INR s Less Intensive Anticoagulation 2.0 3.0 Conventional Range 3.0 4.5 PT Coag (PPP) [Time] 10.9 s Normal 9.4 - 1 2.5 second(s) [facility] Comment on above: Interpretive Data: 1 5 days - 4 weeks 1 - 5 months 6 -11 months 1-5 years 6-10 years 11 -17 years Mean: 11.2 (9.5-12.6) Mean: 11.0 (9.7-12.8) Mean: 11.0 (9.8-13.0) Mean: 11.3 (9.9-13.4) Mean: 11.7 (10.0-14.6) Mean: 11.8 (10.0 - 14.1) Pediatric Reference ranges were obtained from a study by Isidro Tong et al. prepared from 1437 samples obtained at 7 different centers using the same coagulation reagent and instrumentation as [facility]. Currently there are no coagulation studies available worldwide for children to 14 days, and no normal ranges. HEMATOLOGYOrdered By: SYSTEM SYSTEM on 08-29-2024 Basophils/100 WBC (Bld) 0.5 % Normal 0.0 - 2.0 % [facility] Basophils/Leukocytes Auto (Bld) [Pure # fraction] 0.0 E9/L Normal 0.0 - 0.2 E9/L [facility] Eosinophils (Bld) [#/Vol] 0.2 E9/L Normal 0.0 - 0.5 E9/L [facility] Eosinophils/100 WBC (Bld) 3.7 % Normal 0.0 - 8.0 % [facility] Erythrocyte distribution width (RBC) [Ratio] 13.6 % Normal 10.9 - 14.2 % [facility] Hematocrit (Bld) [Volume fraction] 37.3 % Low 37.7 - 49.0 % [facility] Hemoglobin (Bld) [Mass/Vol] 13.1 g/dL Low 13.5 - 17.5 gm/dL [facility] Lymphocytes (Bld) [#/Vol] 1.3 E9/L Normal 1.0 - 4.0 E9/L [facility] Lymphocytes/100 WBC (Bld) 19.2 % Normal 14.0 - 50.0 % [facility] MCH (RBC) [Entitic mass] 32.2 pg Normal 27.0 - 34.0 pg [facility] MCHC (RBC) [Mass/Vol] 35.2 g/dL Normal 31.4 - 36.0 gm/dL [facility] MCV (RBC) [Entitic vol] 91.6 fL Normal 80.0 - 100.0 fL [facility] Monocytes (Bld) [#/Vol] 0.6 E9/L Normal 0.2 - 1.0 E9/L [facility] Monocytes/100 WBC (Bld) 9.0 % Normal 4.0 - 14.0 % [facility] Neutrophils (Bld) [#/Vol] 4.5 E9/L Normal 2.0 - 7.5 E9/L [facility] Neutrophils/100 WBC (Bld) 67.6 % Normal 36.0 - 75.0 % [facility] Platelet 182.0 E9/L Normal 150.0 - 500.0 E9/L [facility] Platelet mean volume (Bld) [Entitic vol] 8.5 fL Normal 6.4 - 10.8 fL [facility] RBC (Bld) [#/Vol] 4.1 E12/L Low 4.3 - 5.9 E12/L [facility] WBC corrected for nucl RBC Auto (Bld) [#/Vol] 6.6 E9/L Normal 4.0 - 11.0 E9/L [facility] PT & PTTon 08-29-2024 aPTT Coag (PPP) [Time] 34.4 second(s) Normal 25.1-36.5 [facility] Comment on above: Result Comment: Para meter 15 days - 4 weeks 1 - 5 months 6 - 11 months 1 - 5 years 6 - 10 years 11 - 17 years PTT Mean: 35.4 (27.6-45.6) Mean: 33.5 (24.8-40.7) Mean: 32.4 (25.1-40.7) Mean: 31.6 (24.0-39.2) Mean: 31.6 (26.9-38.7) Mean: 31.0 (24.6-38.4) Pediatric Reference ranges were obtained from a study by Isidro Tong et al. prepared from 1437 samples obtained at 7 different centers using the same coagulation reagent and instrumentation as [facility]. Currently there are no coagulation studies available worldwide for children to 14 days, and no normal ranges. Heparin therapeutic range (represented by Anti-Factor Xa activity of 0.2 - 0.4 U/mL) corresponds to PTT of 56.6 - 109.0 sec. Performed By: #### 1 [id number] #### [facility] [address] [place] [address] INR Coag (PPP) [Relative time] 0.97 {INR} Invalid Interpretation Code [facility] Comment on above: Result Comment: INR results are specifically intended to assess patients stabilized on long-term Anticoagulation therapy suggested INR???s ???Less Intensive Anticoagulation??? 2.0 ??? 3.0 Conventional Range 3.0 ??? 4.5 Performed By: #### 1 [id number] #### [facility] [address] [place] [address] PT Coag (PPP) [Time] 10.9 second(s) Normal 9.4-12.5 [facility] Comment on above: Result Comment: 15 d ays - 4 weeks 1 - 5 months 6 -11 months 1- 5 years 6-10 years 11 -17 years Mean: 11.2 (9.5-12.6) Mean: 11.0 (9.7-12.8) Mean: 11.0 (9.8-13.0) Mean: 11.3 (9.9-13.4) Mean: 11.7 (10.0-14.6) Mean: 11.8 (10.0 - 14.1) Pediatric Reference ranges were obtained from a study by gadiel Gao al. prepared from 1437 samples obtained at 7 different centers using the same coagulation reagent and instrumentation as [facility]. Currently there are no coagulation studies available worldwide for children to 14 days, and no normal ranges. Performed By: #### 1 [id number] #### [facility] [address] [place] [address] UA with Cult Rflxon 08-30-19 25 Bilirubin Ql (U) Negative Normal Negative [facility] Comment on above: Performed By: #### 4 [id number] #### [facility] [address] [place] [address] Clarity (U) Clear Normal Clear [facility] Comment on above: Performed By: #### 4 [id number] #### [facility] [address] [place] [address] Color (U) Colorless Abnormal Yellow [facility] Comment on above: Result Comment: Micr oscopic readings are only performed on those samples that meet specific criteria set forth by [facility]. Performed By: #### 4 [id number] #### [facility] [address] [place] [address] Glucose Ql (U) Negative Normal Negative [facility] Comment on above: Performed By: #### 4 [id number] #### [facility] [address] [place] [address] Hemoglobin Auto test strip (U) [Mass/Vol] Negative Normal Negative [facility] Comment on above: Performed By: #### 4 [id number] #### [facility] [address] [place] [address] Ketones Auto test strip Ql (U) Negative Normal Negative [facility] Comment on above: Performed By: #### 4 [id number] #### [facility] [address] [place] [address] Leukocyte esterase Auto test strip Ql (U) Negative Normal Negative [facility] Comment on above: Performed By: #### 4 [id number] #### [facility] [address] [place] [address] Nitrite Auto test strip Ql (U) Negative Normal Negative [facility] Comment on above: Performed By: #### 4 [id number] #### [facility] [address] [place] [address] pH (U) 7.0 [pH] Invalid Interpretation Code 5.0-9.0 [facility] Comment on above: Performed By: #### 4 [id number] #### [facility] [address] [place] [address] Protein Ql (U) Negative Normal Negative [facility] Comment on above: Performed By: #### 4 [id number] #### [facility] [address] [place] [address] Specific gravity (U) [Rel density] 1.009 Invalid Interpretation Code 1.005-1.030 [facility] Comment on above: Performed By: #### 4 [id number] #### [facility] [address] [place] [address] Urobilinogen (U) [Mass/Vol] Negative Normal Negative [facility] Comment on above: Performed By: #### 4 [id number] #### [facility] [address] [place] [address] Type of Urine collection method Clean Catch Normal [facility] Comment on above: Performed By: #### 4 [id number] #### [facility] [address] [place] [address] URINALYSISOrdered By: SYSTEM SYSTEM on 08-29-2024 Bilirubin Ql (U) Negative Normal Negativemg/ d L FT UA Auto SS Clarity (U) Clear (08/29/24 12:50 PM) Normal Clear [facility] UA Auto SS Color (U) Colorless 1 *ABN* (08/29/24 12:50 PM) Invalid Interpretation Code Yellow [facility] UA Auto SS Comment on above: Interpretive Data: M icroscopic readings are only performed on those samples that meet specific criteria set forth by [facility]. Glucose Ql (U) Negative Normal Negativemg/d L FT UA Auto SS Hemoglobin Auto test strip (U) [Mass/Vol] Negative Normal Negativemg/d L FT UA Auto SS Ketones Auto test strip Ql (U) Negative Normal Negativemg/d L FT UA Auto SS Leukocyte esterase Auto test strip Ql (U) Negative Normal NegativeLeu/ uL FT UA Auto SS Nitrite Auto test strip Ql (U) Negative Normal Negativemg/d L FT UA Auto SS pH (U) 7.0 *NA* (08/29/24 12:50 PM) Invalid Interpretation Code 5.0 - 9.[address] [facility] UA Auto SS Protein Ql (U) Negative Normal Negativemg/d L FT UA Auto SS Specific gravity (U) [Rel density] 1.009 *NA* (08/29/24 12:50 PM) Invalid Interpretation Code 1.005 - 1.[address] [facility] UA Auto SS Urobilinogen (U) [Mass/Vol] Negative Normal Negativemg/d L [facility] UA Auto SS URINALYSISOrdered By: Rajinder Chauhan on 08-29-2024 UA Spec Desc Clean Catch (08/29/24 12:50 PM) Normal [facility] UA Auto SS Urine Cytology ([facility])on 0 08-29-2024 Microscopic exam Cytology (U) [Interp] Diagnosis Info Invalid Interpretation Code [facility] Comment on above: Result Comment: A:Ur ine,Urine:Voided Interpretation - Negative for dysplastic cells or malignancy. Reactive urothelial cells present. Adequate but limited cellularity for evaluation. MicroScopic Description - Adequacy - Adequate but limited Gross Description Site ID:A color Yellow fixative Alcohol Specimen designated Urine received in alcohol preservative and labeled with the patient???s name, consists of 30ml clear yellow fluid. Electronically signed by : on: 08/20/2024 16:07:04 Performed By: #### 1 [id number] #### [facility] [address] [place] [address] eGFRon 08-29-2024 eGFR 90 mL/min/1.73 m2 Normal >=59 [facility] Comment on above: Performed By: #### 1 [id number] #### [facility] [address] [place] [address] Main OR Intraoperative Recor don 08-21-2024 Main OR Intraoperative Record Main OR Intraoperative Record IntraOp Document Type FTURO Summary Primary Physician: ISHAAN ROMERO MD Finalized Date/Time: 08/21/24 14:11:56 Pt. Name: ISAACRODNEY/Sex: 1950 Male Med Rec #: [id number] Physician: ISHAAN ROMERO MD Financial #: [id number] Pt. Type: O Room/Bed: / Admit/Disch: 08/21/24 13:39:02 - Institution: Case Times FTURO Entry 1 Patient Times In Room 08/21/24 13:57:00 Out Room 08/21/24 14:15:00 Procedure Times Start 08/21/24 14:04:00 Stop 08/21/24 14:10:00 Anesthesia Times Last Modified By: Irina Hassan Ii 08/21/24 14:10:35 Case Attendance FTURO Entry 1 Entry 2 Entry 3 Case Attendee NICK BRITO, Melonie Calvillo Alfons Ii F KWABENA Role Performed Surgeon - Primary Scrub - Primary Rental Sales Representative - Primary Time In 08/21/24 13:57:00 08/21/24 13:57:00 08/21/24 13:57:00 Time Out 08/21/24 14:15:00 08/21/24 14:15:00 08/21/24 14:15:00 Procedure CYSTOSCOPY LOCAL(.), CYSTOSCOPY LOCAL(.), CYSTOSCOPY LOCAL(.), PROSTATE TRANSRECTAL PROSTATE TRANSRECTAL PROSTATE TRANSRECTAL ULTRASOUND WITH BIO(.) ULTRASOUND WITH BIO(.) ULTRASOUND WITH BIO(.) Comments Last Modified By: Irina Hassan Ii, Alfons Ii F Letrondo, Alfons Ii F 08/21/24 14:10:37 08/21/24 14:10:37 08/21/24 14:10:37 Surgical Procedures FTURO Entry 1 Entry 2 Procedure Description Procedure CYSTOSCOPY LOCAL PROSTATE TRANSRECTAL ULTRASOUND WITH BIOPSY Modifiers . . Surgeon Description CYSTO WITH TRUS FOR CYSTO WITH TRUS FOR SIZING SIZING Primary Procedure No Yes Primary Surgeon NICK BRITO, NICK BRITO, ISHAAN QUIROS Start 08/21/24 14:04:00 08/21/24 14:04:00 Stop 08/21/24 14:10:00 08/21/24 14:10:00 Anesthesia Type Local Local Surgical Service Urology Urology Wound Class 2 - Clean-Contaminated 2 - Clean-Contaminated Last Modified By: Irina Hassan Ii, Alfons Ii F 08/21/24 14:10:38 08/21/24 14:10:38 General Case Data FTURO Pre-Care Text: Classifies surgical wound, implements aseptic technique, initiates traffic control Entry 1 Case Information OR URO 1 FT Case Level None Wound Class 2 - Clean-Contaminated Specialty Urology Preop Diagnosis BPH WITH OBSTRUCTION, Postop Same As Preop Yes GROSS HEMATURIA Postop Diagnosis BPH WITH OBSTRUCTION, Outcomes Met? Yes GROSS HEMATURIA Last Modified By: Irina Hassan Ii 08/21/24 13:55:25 Post-Care Text: The patient is free from signs and symptoms of infection EU IntraOp - FTURO Pre-Care Text: Implements protective measures prior to operative or invasive procedure, confirms identity before the operative or invasive procedure, verifies operative procedure, surgical site, and laterality Entry 1 EU Perioperative Protocols Procedure(s) CYSTOSCOPY LOCAL(.), Patient Identity Birthday, ID Band PROSTATE TRANSRECTAL Verified (select at Check, Patient ULTRASOUND WITH BIO(.) least 2): Participation Consents / H and P H&P, Surgery/Procedure Operative Site N/A Verified Consent Marking Verified Surgical Site Yes Laterality Verified n/a Verified Procedure Verified Yes Correct Patient Yes Position Verified Availability Equipment, Medication Time Out NICK BRITO, Verified (If Participants Rajinder QUIROS Laura Applicable) Sonya Barahona Alfons Ii F Time Out Complete 08/21/24 14:02:00 Allergies Reviewed? Yes Allergies Reviewed Self/Patient With Body Position Lateral, right side up Prep Area PENIS Prep Agents Betasept Skin. Condition Intact, [place], Warm, & Description UNCHANGED Dry Additional None Specimens Collected Vitals - EU Blood Pressure Pulse Respirations SPO2 I&O - EU Outcomes Met? Yes Last Modified By: Irina Hassan Ii 08/21/24 14:02:40 Post-Care Text: The patient is free from signs and symptoms of injury caused by extraneous objects Sign Out FTURO Entry 1 Before Patient Leaves OR Nurse verbally Yes Nurse verbally Yes confirms with the confirms with the team the name of team that the procedure(s) instrument, sponge, recorded and needle counts are correct (or N/A) Nurse verbally n/a Nurse verbally Yes confirms with the confirms with the team how the team whether there specimen is labeled are any equipment (including patient problems to be name), if applicable addressed Sign Out Complete 08/21/24 14:10:00 Last Modified By: Irina Hassan Ii 08/21/24 14:10:24 Case Comments Finalized By: Irina Hassan Ii Document Signatures Signed By: Irina Hassan Ii 08/21/24 14:10 Irina Hassan Ii 08/21/24 14:[address] [facility] Main OR Preoperative Recordo n 08-21-2024 Main OR Preoperative Record Main OR Preoperative Record Holding Area Document Type FTURO Summary Primary Physician: ISHAAN ROMERO MD Finalized Date/Time: 08/21/24 13:56:02 Pt. Name: RODNEY GRAY D.O.B./Sex: 1950 Male Med Rec #: [id number] Physician: ISHAAN ROMERO MD Financial #: [id number] Pt. Type: O Room/Bed: / Admit/Disch: 08/21/24 13:39:02 - Institution: Case Times Holding FTURO Pre-Care Text: Verifies consent for planned procedure, identifies individual values and wishes concerning care, includes family members in perioperative teaching Secures patient's records' belongings, and valuables, maintains patient's dignity and privacy, and maintains patient confidentiality Entry 1 In Holding 08/21/24 13:47:00 Outcomes Met? Yes Last Modified By: Diya Arce LPN 08/21/24 13:48:01 Post-Care Text: The patient participates in decisions affecting his or her perioperative plan of care The patient's right to privacy is maintained Surgery Checklist FTURO Entry 1 Patient Birthday, ID Band Procedure Surgical Consent, With Identification: Check, Patient Verification: Patient Participation NPO after Midnight: n/a Limitations: up ad ravinder Complaints of Pain: No Skin Integrity Intact, [place], Warm, & Dry Vitals - EU Blood Pressure 182/76 Pulse 63 bpm Respirations 18 br/min SPO2 18 % Additional None Specimens Collected Last Modified By: Diya Arce LPN 08/21/24 13:55:57 Finalized By: Diya Arce LPN Document Signatures Signed By: Diya Arce LPN 08/21/24 13:[address] [facility] CHEMISTRYOrdered By: SYSTEM SYSTEM on 08-16-2024 Creatinine [Mass/Vol] 1.2 mg/dL Normal 0.5 - 1.3 mg/dL Remisol Chem eGFR 64 mL/min/1.73 m2 Normal >=59mL/min /1 [address] Urogramon 08-16-2024 CT Urogram Exam Date/Time: 08/16/2024 13:04 EST Reason for Exam: Gross hematuria;Hematuria Report IMPRESSION: FINDINGS SUSPICIOUS FOR UNCOMPLICATED CYSTITIS. GRADE 3 PROSTATOMEGALY. OTHERWISE, ESSENTIALLY NEGATIVE CT UROGRAM. EXAM: CT Urogram DATE: 08/16/2024 11:51 AM CLINICAL HISTORY: Hematuria, Gross hematuria. COMPARISON: None available. TECHNIQUE: Spiral images were obtained of the abdomen and pelvis before and after the uneventful intravenous administration of approximately 100 mL of Isovue-[address] urogram protocol. All CT scans at this facility use dose modulation, iterative reconstruction, and/or weight based dosing when appropriate to reduce radiation dose to as low as reasonably achievable. FINDINGS: Kidneys: No suspicious mass or significant urinary tract calculi. Approximately 0.7 cm nonenhancing fluid density cyst mid left kidney. Upper urinary tracts: No hydronephrosis, hydroureter, or suspicious filling defects identified. Urinary bladder: Mild to moderate circumferential wall thickening and minimal surrounding ill-defined inflammation, suspicious for cystitis. No suspicious mass or bladder calculi. Prostate: Grade 3 prostatomegaly, approximately 73 mL. Adrenals: Unremarkable. Liver: No enlargement, significant fatty infiltration, suspicious mass or lesion. Biliary: The gallbladder has been removed. No abnormal biliary ductal dilatation. Pancreas: No suspicious mass, organized fluid collection, surrounding inflammation, or abnormal pancreatic ductal dilatation. Spleen: Unremarkable. GI tract: No abnormal dilation, wall thickening, or suspicious mass. Normal appendix. Lymph nodes: No pathologically enlarged lymph nodes. Vasculature: No aneurysm or dissection. Mild predominantly calcified atherosclerotic plaquing. Mesentery/peritoneum/ retroperitoneum: No ascites, organized fluid collection, inflammatory changes, or suspicious mass. Pelvis: No suspicious mass. Musculoskeletal: No acute osseous findings identified. Mild to moderate degenerative Report changes. Lower thorax: Noncontributory. Ordering Provider: ISHAAN ROMERO FINAL REPORT Dictated: 08/16/2024 1:26 pm Ken Bruce MD Signed (Electronic Signature): 08/16/2024 1:26 pm Signed by: Ken Bruce MD Transcribed by: TAMICA Technologist: GONZALO Normal [facility] Creatinineon 08-16-2024 Creatinine [Mass/Vol] 1.2 mg/dL Normal 0.5-1.3 [facility] Comment on above: Performed By: #### 2 [id number] #### [facility] [address] [place] [address] eGFRon 08-16-2024 eGFR 64 mL/min/1.73 m2 Normal >=59 [facility] Comment on above: Performed By: #### 1 [id number] #### [facility] [address] [place] [address] Ambulatory Visit Summaryon 0 08-14-2024 Ambulatory Visit Summary Ambulatory Visit Summary RODNEY GRAY :1950 Visit Date:08/14/2024 Ambulatory Visit Instructions Your Diagnosis BPH with obstruction/lower urinary tract symptoms Gross hematuria Your Care Team Attending Physician - ISHAAN ROMERO MD Primary Care Physician - CLINTON FUENTES DO Referring Physician - CLINTON FUENTES DO This Is Your Medications List Contact prescribing physician if questions or concerns acetaminophen-hydroco done (Braxton 325 mg-5 mg oral tablet) acetaminophen-oxycodo ne (Percocet 5 mg-325 mg oral tablet) aspirin (Ecotrin 325 mg Tab-EC) aspirin (aspirin 81 mg oral tablet) benazepril (benazepril 10 mg Tab) ibuprofen (ibuprofen 600 mg Tab) tamsulosin (tamsulosin 0.4 mg Cap) Procedures Performed Arthroscopy of knee (01/25/2019), Left Foot Surgery (2010), Tonsillectomy. What to do next Scheduled Follow-Up Appointments Wednesday 12:00 PM EST Where: [facility] Wednesday 2:30 PM EST Where: [facility] Wednesday 1:15 PM EST Where: [facility] You Need to Schedule the Following Appointments Follow Up with NICK BRITO, RADHA QUIROS When: Where: You Need to Complete the Following CT Urogram, 08/16/24, Routine, Order for future visit, Transport Mode: Ambulatory, Reason: Hematuria, Reason: Gross hematuria, No, No, Gross hematuria, pp_set_radiology_subs pecialty, Not Required, [facility] Medications What How Much When Why Instructions Unchanged acetaminophen-hydroco done (Braxton 325 mg-5 mg oral tablet) See instructions 1 - 2 po q4-6h prn pain Dx: M17.11 Duration: 7 days Contact prescribing physician if questions or concerns Unchanged acetaminophen-oxycodo ne (Percocet 5 mg-325 mg oral tablet) 1 Tablets By Mouth Every 6 hours Acute traumatic pain Avulsion of nail of left thumb Avulsion of skin of left thumb Contact prescribing physician if questions or concerns Unchanged aspirin (aspirin 81 mg oral tablet) 1 Tablets By Mouth Every day Contact prescribing physician if questions or concerns Unchanged aspirin (Ecotrin 325 mg Tab-EC) 1 Tablets By Mouth Every day Contact prescribing physician if questions or concerns Unchanged benazepril (benazepril 10 mg Tab) 1 Tablets By Mouth Every day Contact prescribing physician if questions or concerns Unchanged ibuprofen (ibuprofen 600 mg Tab) 1 Tablets By Mouth Every 6 hours Contact prescribing physician if questions or concerns Unchanged tamsulosin (tamsulosin 0.4 mg Cap) 1 Capsules By Mouth Every day Contact prescribing physician if questions or concerns Allergies No Known Allergies Problems Ongoing - Any problem that you are currently receiving treatment for. Acute prostatitis with hematuria BPH with obstruction/lower urinary tract symptoms GERD (gastroesophageal reflux disease) Gross hematuria Hematuria HTN [Hypertension] Hypercholesterolemia Patient Survey You may receive a survey via text or e-mail asking about your office visit. Please share your experience with us by completing your survey. We appreciate your feedback and thank you for choosing us for your care. Education Materials Transrectal Ultrasound A transrectal ultrasound is a procedure that uses sound waves to create images of the prostate gland and nearby tissues. For this procedure, an ultrasound probe is placed in the rectum. The probe sends sound waves through the wall of the rectum into the prostate gland. The prostate is a walnut-sized gland that is located below the bladder and in front of the rectum. The images show the size and shape of the prostate gland and nearby structures. You may need this test if you have: ??? Trouble urinating. ??? Trouble getting your partner (infertility). ??? An abnormal result from a prostate screening exam. Tell a health care provider about: ??? Any allergies you have. ??? All medicines you are taking, including vitamins, herbs, eye drops, creams, and wjej-tiw-bmttraf medicines. ??? Any bleeding problems you have. ??? Any surgeries you have had. ??? Any medical conditions you have. ??? Any prostate infections you have had. What are the risks? Generally, this is a safe procedure. However, problems may occur, including: ??? Discomfort during the procedure. ??? Blood in your urine or sperm after the procedure. This may occur if a sample of tissue is taken to look at under a microscope (biopsy) during the procedure. What happens before the procedure? Your health care provider may instruct you to use an enema 1???4 hours before the procedure. Follow instructions from your health care provider about how to do the enema. ??? Ask your health care provider about: ? Changing or stopping your regular medicines. This is especially important if you are taking diabetes medicines or blood thinners. ? T (more content not included)... Normal [facility] Urine Cytology ([facility])on 0 08-14-2024 Method of Extraction Voided Normal [facility] Comment on above: Performed By: #### 1 [id number] #### [facility] [address] [place] [address] Number of Jars [address] [facility] Comment on above: Performed By: #### 1 [id number] #### [facility] [address] [place] [address] [facility] Comment on above: Performed By: #### 1 [id number] #### [facility] [address] [place] [address] Type of Service Technical Only Normal [facility] Comment on above: Performed By: #### 1 [id number] #### [facility] [address] [place] [address] Urology Office/Clinic Noteon 08-14-2024 Urology Office/Clinic Note Urology Office/Clinic Note HPI Staff 73 year old male referred by Dr. Fuentes for prostatitis, BPH w/LUTS and gross hematuria Pt. was in the ER on 07/31/24 for urinary frequency and blood in urine (light pink) Pt. was given cipro at er C&S 07/31/24 - neg pcp prescribed bactrim DS BID x14 days 08/02/24 and increased flomax to BID- pt. states he has been on flomax qd for 10 years and it worked well up unitl the last few months. states he saw a urologist 10 years ago and had a cysto was told that his bladder was severally irritated denies any dysuria or recent gross hematuria- denies any flank or abdomen pain PSA 03/01/24- 1.77 02/23/22- 1.42 02/25/21- . History of Present Illness Tests reviewed: reviewed UA, PSA, ER records, external records. I have reviewed the previous health record information and history for this patient from external provider I have reviewed and verified the staff HPI to be accurate for this encounter. There have been no associated fever, chills, flank pain, or blood in the urine. Denies any urinary infections since last encounter. Review of Systems ROS - Provider Constitutional: denies weight loss, denies hot flashes. Eyes: denies eye problems. Gastrointestinal: denies nausea, denies vomiting. Cardiovascular: denies chest pain or angina. Integumentary: no dryness Musculoskeletal: denies musculoskeletal symptoms. ENMT: denies otolaryngeal symptoms. Respiratory: no shortness of breath. Heme/Lymph: denies easy bleeding tendency, denies easy bruising tendency. Psychiatric: no confusion, no anxiety. Genitourinary: See HPI. Physical Exam General Appearance: alert, no distress, well nourished, well developed male. Head: normocephalic . Eyes: normal orbit and globe. ENMT: normal examination of external ears. Psychiatric: cooperative, affect appropriate for age, normal judgement, euthymic mood. Assessment/Plan 73 [address] Fuentes for acute prostatitis, acute prostatic hyperplasia with LUTS and nocturia. Denies hx of diabetes, [place], CVA. Not on anticoagulation. MEKHI left blank. Portions of this record may have been created with voice recognition artificial intelligence software, specifically [employer], [employer] and or [employer]. Substitutions may have occurred due to the inherent limitations of voice recognition and artificial intelligence software. 1. BPH with obstruction/lower urinary tract symptoms (N40.1: Benign prostatic hyperplasia with lower urinary tract symptoms) PSA 02/25/21 - 1.68 02/23/22 - 1.42 03/01/24 - 1.77 ~PSA checked by primary care Pt states he was seen by a urologist 10 years ago and a cysto done. Pt was told his bladder was severely irritated . IPSS 14. Taking Flomax 0.4mg, has been taking it qd x 10 years however primary care increased to bid 08/02/24. Pt states when we presented to the ER 07/31/24 he was having difficulty urinating. Pt states he was voiding frequently with little output. Recommended proceeding with cysto and TRUS for sizing. Discussed outlet procedures such as UroLift vs TURP/RASP barring prostate volume on TRUS. Pt agrees with the plan to proceed with cysto and TRUS. -Schedule cysto/TRUS for sizing. The risks and benefits for cystoscopy have been discussed. The risks include bleeding, infection, and irritation of the bladder and urinary channel, among others. The patient, after being informed of procedural details and after questions have been answered, wishes to proceed. Full informed consent has been obtained. Will order Local anesthesia. 2. Gross hematuria (R31.0: Gross hematuria) Pt presented to [facility] ER 07/31/24 due to urinary frequency and gross hematuria. Empirically treated with Cipro and Pyridium. Neg UCx 08/03/24. Primary care prescribed Bactrim DS bid x 14 days 08/02/24. Mentions he had a similar episode 10 years ago, see above. UA today negative for blood. Denies recurrence of gross hematuria since 07/31/24. Primary care ordered CT AP w con. Scheduled 08/16/[address] [facility]. No smoking history. Denies hx of exposure to toxins/chemicals. Discussed potential etiologies and implications of hematuria with patient. These include: Prostatic disease, trauma, Tumor, infection/inflammatio n, stones, period/menses (pseudohematuria), obstructive uropathy (urolithiasis, stricture, etc), nephritis, Tuberculosis, thrombosis, and hematologic. Urologic malignancy is more common in patients with gross hematuria (23%) than in patient with microscopic hematuria (5%). In adults with microscopic hematuria, the initial evaluation fails to identify an etiology in 43% of patients. Approximately 1-3% of these patients eventually develop a urologic malignancy. In adults with gross hematuria, the initial evaluation fails to identify an etiology in 8% of patients. Approximately, 18% of these patients eventually develop a urologic malignancy. -Scheduling cysto -Will change CT AP w con to CT Urogram Patient is a 73-year-o (more content not included)... Normal [facility] Comment on above: Result Comment: Elec tronically Signed By: NICK BRITO, ISHAAN\.br\Date and Time Signed: 08/14/24 10:00 EST\.br\Electronically Co-Signed By: Nohemy Silva\.lety\Date and Time Co-Signed: 08/14/24 09:52 EST C Urineon 08-03-2024 Bacteria identified Cx Nom (U) Microbiology PROCEDURE: Urine Culture [R1] SOURCE: U CleanCatch BODY SITE: COLLECTED DATE/TIME: 07/31/2024 21:16 EST RECEIVED DATE/TIME: 08/01/2024 00:39 EST START DATE/TIME: 08/01/2024 00:39 EST FREE TEXT SOURCE: Lino Dietrich DO, DO, Kaylinn A FINAL REPORTS Final Report [] Verified Date/Time: 08/03/2024 11:47 EST No growth at 2 days. Performing Locations R1: This test was performed at: [facility], [address] [place] [address], [id number] , , [facility] Comment on above: Performed By: #### 2 [id number] #### [facility] [address] [place] [id number] ED Clinical Summaryon 2024 ED Clinical Summary ED Clinical Summary [address] [address] ED Clinical Summary Person Information Name: RODNEY GRAY Lizzie/[facility] Age: 73 Years : 1950 Sex: Male Language: Chinese PCP: CLINTON FUENTES DO Marital Status: Phone: [phone] Visit Id: Visit Reason: Urinary frequency; Hematuria; URINATING BLOOD Speciality: Acuity: 4 Enc Type: Emergency Med Service: Emergency Arrival: 07/31/2024 20:55:21 Discharge: 07/31/2024 22:03:30 LOS: 000 01:08 Checkin: 07/31/2024 20:55:21 Checkout: 07/31/2024 22:03:30 Dispo Type: Home (Routine DC) EVENTS: Event Name Event Status Request Date/Time Start Date/Time Complete Date/Time Arrive Complete 07/31/2024 20:55:21 07/31/2024 20:55:21 07/31/2024 20:55:21 Document Home Meds Request 07/31/2024 20:55:21 Triage Complete 07/31/2024 20:55:21 07/31/2024 21:09:36 07/31/2024 21:09:36 Registration Complete 07/31/2024 20:59:38 07/31/2024 20:59:38 07/31/2024 20:59:38 Reg Complete Request 07/31/2024 20:59:38 Reg Bed Request Complete 07/31/2024 20:59:38 07/31/2024 20:59:38 07/31/2024 20:59:38 Isolation Screening Request 07/31/2024 21:09:36 Bed Assign Complete 07/31/2024 21:09:52 07/31/2024 21:09:52 07/31/2024 21:09:52 Dr Exam Complete 07/31/2024 21:09:52 07/31/2024 21:13:55 07/31/2024 21:13:55 RN Exam Complete 07/31/2024 21:09:52 07/31/2024 21:20:06 07/31/2024 21:20:06 Pending Labs Complete 07/31/2024 21:11:23 07/31/2024 21:35:45 Registration Request 07/31/2024 21:13:55 Pending Labs Collected 07/31/2024 21:35:45 07/31/2024 21:35:45 Lab Collected 07/31/2024 21:35:45 07/31/2024 21:35:45 Meds Admin Complete 07/31/2024 21:52:42 07/31/2024 22:02:04 Discharge Complete 07/31/2024 21:54:51 07/31/2024 22:04:39 07/31/2024 22:04:39 Transfer Complete 07/31/2024 22:04:39 07/31/2024 22:04:39 07/31/2024 22:04:39 ADDRESS: [address] [facility] [phone] PHYS DOC NOTES: MEDICAL INFORMATION: Prescriptions Given: New Medications [facility], [address] [place], [place] [id number], [phone] ciprofloxacin (Cipro 500 mg Tab) 1 Tablets By Mouth 2 times a day for 5 Days. Refills: 0. phenazopyridine (Pyridium 200 mg Tab) 1 Tablets By Mouth 3 times a day for 3 Days. Refills: 0. Medications to Continue with No Changes Other Medications acetaminophen-hydroco done (Braxton 325 mg-5 mg oral tablet) 1 - 2 po q4-6h prn pain Dx: M17.11 Duration: 7 days; as needed for pain. Refills: 0. acetaminophen-oxycodo ne (Percocet 5 mg-325 mg oral tablet) 1 Tablets By Mouth every 6 hours. Refills: 0. aspirin (aspirin 81 mg oral tablet) 1 Tablets By Mouth every day. aspirin (Ecotrin 325 mg Tab-EC) 1 Tablets By Mouth every day. Refills: 0. benazepril (benazepril 10 mg Tab) 1 Tablets By Mouth every day. ibuprofen (ibuprofen 600 mg Tab) 1 Tablets By Mouth every 6 hours. Refills: 0. tamsulosin (tamsulosin 0.4 mg Cap) 1 Capsules By Mouth every day. PATIENT EDUCATION INFORMATION: Instructions: Urinary Tract Infection, Adult, [id number] Follow up: With: Address: When: Minna Sepulveda In 3 days 08/03/2024 Comments: Take the antibiotics as prescribed you have completed the course. Use the Pyridium every 8 hours as needed for pain with urination. Please follow-up with your primary care doctor and urology for further evaluation management. Please return to ED for any new or worsening symptoms. With: Address: When: CLINTON FUENTES [address] [place] [address] [facility] () In 3 days DIAGNOSIS: Acute cystitis with hematuria Normal [facility] ED Note-Physicianon 07-31-19 ED Note-Physician ED Note-Physician Basic Information Time Seen: Lino Dietrich DO 07/31/2024 21:13 Chief Complaint pt to ED with c/o urinary frequency and blood in urine. hx of prostates issues and states previous bladder infection with same symptoms. takes flomax daily. mild burning per pt. denies blood thinners. History of Present Illness Patient is a 73-year-old male with past medical history of hypertension, BPH presenting to the ED for evaluation of urinary frequency and blood in his urine. Patient states he had an episode about a week ago which lasted for a day symptoms resolved was doing well with clear urine in between today started having blood in his urine and burning with urination. Patient denies any blood thinners states he has had similar symptoms in the past with urinary tract infections. Saw urology approximately 9 years ago for similar symptoms. Patient denies any significant abdominal pain, nausea, vomiting, denies any other complaints. Review of Systems A 10 point review of systems is negative except as noted above. Medical and Surgical History: Reviewed and noted Social history: Lives at home Tobacco: Denies Physical Exam Vitals & Measurements T: 36.8 ???C(Oral) HR: 75(Monitored) RR: 16 BP: 139/70 SpO2: 99% HT: 177 cm WT: 76.4 kg BMI: 24.39 General: Well developed, non toxic appearing, no acute distress HEENT: Head atraumatic, Mucosa moist, hearing grossly normal Neck: No JVD, tracheal deviation Cardiac: Regular rate, rhythm, no murmurs, or gallops, 2+ radial pulses Respiratory: Lungs clear to auscultation B/L, normal respiratory effort Abdomen: Soft non tender, no rebound or guarding, no peritoneal signs Extremities: No edema noted in the LE B/L, no tenderness to palpation Neurologic: Alert and oriented, speech clear Skin: No rashes or lesions Psych: Appropriate mood and behavior Medical Decision Making MEDICAL DECISION MAKING Number and Complexity of Problems Differential Diagnosis: [] [facility] Data External documents reviewed: [] My EKG interpretation: [] My CT interpretation: [] My X-ray interpretation: [] My Ultrasound interpretation: [] Decision rules/scores evaluated: [] Discussed with: [] Treatment and Disposition ED Course: Patient is a 73-year-old male presenting to the ED for evaluation of urinary symptoms, blood in his urine. Patient is nontoxic and on arrival, no acute distress. Due to his complaints urinalysis is obtained is consistent with urinary tract infection with 500 leukocyte esterase also blood. Discussed findings with patient he started on Cipro in addition to Pyridium. Skin referral to urology. He is to return to the ED for any new or worsening symptoms. Shared decision making: [] Code status: [] Assessment/Plan Acute cystitis with hematuria (N30.01: Acute cystitis with hematuria) Orders: ciprofloxacin, 500 mg = 1 tab(s), Tab, Oral, Once, Stop date 07/31/24 21:52:00 EST, STAT, Start date 07/31/24 21:52:00 EST, 07/31/24 21:52:00 EST ciprofloxacin, 500 mg = 1 tab(s), Oral, BID, X 5 day(s), # 10 tab(s), Refills(s) 0, Pharmacy: [facility] 1985, 177, cm, 07/31/24 21:09:00 EST, Height/Length Dosing, 76.4, kg, 07/31/24 21:09:00 EST, Weight Dosing phenazopyridine, 200 mg = 2 tab(s), Tab, Oral, Once, Stop date 07/31/24 21:52:00 EST, STAT, Start date 07/31/24 21:52:00 EST, 07/31/24 21:52:00 EST phenazopyridine, 200 mg = 1 tab(s), Oral, TID, X 3 day(s), # 9 tab(s), Refills(s) 0, Pharmacy: [facility], 177, cm, 07/31/24 21:09:00 EST, Height/Length Dosing, 76.4, kg, 07/31/24 21:09:00 EST, Weight Dosing UA with Cult Rflx Urine Culture Disposition Plan Discharge Prescription List Prescriptions Cipro 500 mg Tab, 500 mg= 1 tab(s), Oral, BID Pyridium 200 mg Tab, 200 mg= 1 tab(s), Oral, TID Follow-up With When Contact Information Minna Sepulveda In 3 days 08/03/2024 EST Additional Instructions: Take the antibiotics as prescribed you have completed the course. Use the Pyridium every 8 hours as needed for pain with urination. Please follow-up with your primary care doctor and urology for further evaluation management. Please return to ED for any new or worsening symptoms. CLINTON FUENTES In [address] [id number]- Business (1) Additional Instructions: Patient Education Urinary Tract Infection, Adult, Gbdr-ut-Hceo Problem List/Past Medical History Ongoing HTN [Hypertension] Historical No qualifying data Procedure/Surgical History Arthroscopy of knee (01/25/2019), Left Foot Surgery (2010), Tonsillectomy. Medications Inpatient Cipro 500 mg Tab, 500 mg= 1 tab(s), Oral, Once Pyridium 100 mg Tab, 200 mg= 2 tab(s), Oral, Once Home aspirin 81 mg oral tablet, 81 mg= 1 tab(s), Oral, Daily benazepril 10 mg Tab, 10 mg= 1 tab(s), Oral, Daily Cipro 500 mg Tab, 500 mg= 1 tab(s), Oral, BID Ecotrin 325 mg Tab-EC, 325 mg= 1 tab(s), Oral, Daily ibuprofen 600 mg Tab, 600 mg= 1 (more content not included)... Normal [facility] Comment on above: Result Comment: Elec tronically Signed By: Lino Dietrich DO\.br\Date and Time Signed: 07/31/24 22:01 EST ED Patient Summaryon 025 ED Patient Summary ED Patient Summary [address] [address] Patient Discharge Instructions Person Information Name: RODNEY GRAY Age: 73 Years Arrival Date: 07/31/2024 20:55:21 Discharge Diagnosis: Acute cystitis with hematuria Primary Care Physician: CLINTON FUENTES DO Provider Information Primary Provider: Lino Dietrich DO Advanced Assistant Project Manager:None The exam and treatment you received in the Emergency Department were for an urgent problem and are not intended as complete care. It is important that you follow up with a doctor, nurse practitioner, or physician???s assistant manager quality management for ongoing care. If your symptoms become worse or you do not improve as expected and you are unable to reach your usual health care provider, you should return to the Emergency Department. We are available 24 hours a day. RODNEY GRAY has been given the following list of patient education materials, prescriptions and follow-up instructions: Follow-up Instructions: With: Address: When: Minna Sepulveda In 3 days 08/03/2024 Comments: Take the antibiotics as prescribed you have completed the course. Use the Pyridium every 8 hours as needed for pain with urination. Please follow-up with your primary care doctor and urology for further evaluation management. Please return to ED for any new or worsening symptoms. With: Address: When: CLINTON SHARLENE [facility] [place] [address] Business (1) In 3 days In the event that this physician does not participate in your insurance network, please consult with your insurance company to find a nearby participating provider. Patient Education Materials: Urinary Tract Infection, Adult, Jfqu-yb-Noez A MESSAGE TO ALL PATIENTS REGARDING OPIOIDS PRESCRIPTION OPIOIDS: WHAT YOU NEED TO KNOW Prescription opioids can be used to help relieve wmmlystm-uq-spnzce pain and are often prescribed following a surgery or injury, or for certain health conditions. These medications can be an important part of the treatment but also come with serious risks. It is important to work with your healthcare provider to make sure you are getting the safest, most effective care. WHAT ARE THE RISKS AND SIDE EFFECTS OF OPIOID USE? Prescription opioids carry serious risks of addiction and overdose, especially with prolonged use. An opioid overdose, often marked by slowed breathing, can cause sudden . The use of prescription opioids can have a number of side effects as well, even when taken as directed: ??? Tolerance???meaning you might need to take more of the medication for the same pain relief ??? Physical dependence???meaning you have symptoms of withdrawal when a medication is stopped ??? Increased sensitivity to pain ??? Constipation ??? Nausea, vomiting, and dry mouth ??? Sleepiness and dizziness ??? Confusion ??? Depression ??? Low levels of testosterone that can result in lower sex drive, energy, and strength ??? Itching and sweating RISKS ARE GREATER WITH: ??? History of drug misuse, substance use disorder, or overdose ??? Mental health conditions (such as depression or anxiety) ??? Sleep apnea ??? Older age (65 years and older) ??? Avoid alcohol while taking prescription opioids. Also, unless specifically advised by your health care provider, medications to avoid include: ??? Benzodiazepines (such as Xanax or Valium) ??? Muscle relaxants (such as Soma or Flexeril) ??? Hypnotics (such as Ambien or Lunesta) ??? Other prescription opioids KNOW YOUR OPTIONS Talk to your health care provider about ways to manage your pain that don???t involve prescription opioids. Some of these options may actually work better and have fewer risks and side effects. Options may include: ??? Pain relievers such as acetaminophen, ibuprofen, and naproxen ??? Some medication that are also used for depression or seizures ??? Physical therapy and exercise ??? Cognitive behavioral therapy, a psychological, goal-directed approach, in which patients learn how to modify physical, behavioral, and emotional triggers of pain and stress. IF YOU ARE PRESCRIBED OPIOIDS FOR PAIN: ??? Never take opioids in greater amounts or more often than prescribed. ??? Follow up with your primary health care provider. o Work together to create a plan on how to manage your pain. o Talk about ways to help manage your pain that don???t involve prescription opioids. o Talk about any and all concerns and side effects. ??? Help prevent misuse and abuse o Never sell or share prescription opioids. o Never use another person???s prescription opioids. ??? Store prescription opioids in a secure place and out of reach of others (this may include visitors, children, friends, and family). ??? Safely dispose of unused prescription opioids: Find your community drug take-back program (more content not included)... Normal [facility] UA with Cult Rflxon 07-31-19 25 Bilirubin Ql (U) Negative Normal Negative [facility] Comment on above: Performed By: #### 4 [id number] #### [facility] [address] [place] [address] Clarity (U) Ex.Turbid Abnormal Clear [facility] Comment on above: Performed By: #### 4 [id number] #### [facility] [address] [place] [address] Color (U) Red Abnormal Yellow [facility] Comment on above: Result Comment: Micr oscopic readings are only performed on those samples that meet specific criteria set forth by [facility]. Performed By: #### 4 [id number] #### [facility] [address] [place] [address] Glucose Ql (U) Negative Normal Negative [facility] Comment on above: Performed By: #### 4 [id number] #### [facility] [address] [place] [address] Hemoglobin Auto test strip (U) [Mass/Vol] 3+ mg/dL Abnormal Negative [facility] Comment on above: Performed By: #### 4 [id number] #### [facility] [address] [place] [address] Ketones Auto test strip Ql (U) Negative Normal Negative [facility] Comment on above: Performed By: #### 4 [id number] #### [facility] [address] [place] [address] Leukocyte esterase Auto test strip Ql (U) 500 Keri/uL Abnormal Negative [facility] Comment on above: Performed By: #### 4 [id number] #### [facility] [address] [place] [address] Mucus Auto Ql (U) Negative Normal Negative [facility] Comment on above: Performed By: #### 4 [id number] #### [facility] [address] [place] [address] Nitrite Auto test strip Ql (U) Negative Normal Negative [facility] Comment on above: Performed By: #### 4 [id number] #### [facility] [address] [place] [address] pH (U) 7.0 [pH] Invalid Interpretation Code 5.0-9.0 [facility] Comment on above: Performed By: #### 4 [id number] #### [facility] [address] [place] [address] Protein Ql (U) 2+ mg/dL Abnormal Negative [facility] Comment on above: Performed By: #### 4 [id number] #### [facility] [address] [place] [address] Specific gravity (U) [Rel density] 1.013 Invalid Interpretation Code 1.005-1.030 [facility] Comment on above: Performed By: #### 4 [id number] #### [facility] [address] [place] [address] Urobilinogen (U) [Mass/Vol] Negative Normal Negative [facility] Comment on above: Performed By: #### 4 [id number] #### [facility] [address] [place] [address] Type of Urine collection method Clean Catch Normal [facility] Comment on above: Performed By: #### 4 [id number] #### [facility] [address] [place] [address] URINALYSISOrdered By: SYSTEM SYSTEM on 07-31-2024 Bilirubin Ql (U) Negative Normal Negativemg/ d L [facility] UA Auto SS Clarity (U) Ex.Turbid *ABN* (07/31/24 9:16 PM) Invalid Interpretation Code Clear [facility] UA Auto SS Color (U) Red 1 *ABN* (07/31/24 9:16 PM) Invalid Interpretation Code Yellow [facility] UA Auto SS Comment on above: Interpretive Data: M icroscopic readings are only performed on those samples that meet specific criteria set forth by [facility]. Glucose Ql (U) Negative Normal Negativemg/d L [facility] UA Auto SS Hemoglobin Auto test strip (U) [Mass/Vol] 3+ mg/dL Invalid Interpretation Code Negativemg/d L [facility] UA Auto SS Ketones Auto test strip Ql (U) Negative Normal Negativemg/d L [facility] UA Auto SS Leukocyte esterase Auto test strip Ql (U) 500 Keri/uL Keri/uL Invalid Interpretation Code NegativeLeu/ uL [facility] UA Auto SS Mucus Auto Ql (U) Negative Normal Negativegr ad ed/LPF [facility] UA Auto SS Nitrite Auto test strip Ql (U) Negative Normal Negativemg/d L [facility] UA Auto SS pH (U) 7.0 *NA* (07/31/24 9:16 PM) Invalid Interpretation Code 5.0 - 9.0 [facility] UA Auto SS Protein Ql (U) 2+ mg/dL Invalid Interpretation Code Negativemg/d L [facility] UA Auto SS Specific gravity (U) [Rel density] 1.013 *NA* (07/31/24 9:16 PM) Invalid Interpretation Code 1.005 - 1.[address] [facility] UA Auto SS Urobilinogen (U) [Mass/Vol] Negative Normal Negativemg/d L [facility] UA Auto SS URINALYSISOrdered By: Irene Dietrich on 07-31-2024 UA Spec Desc Clean Catch (07/31/24 9:16 PM) Normal [facility] UA Auto SS Work Phone: Basophils Auto (Bld) [#/Vol] on 06-06-2024 Basophils (Bld) [#/Vol] Automated basophil count 0.0-0.1 [facility] Basophils/100 WBC Auto (Bld) on 06-06-2024 Basophils/100 WBC (Bld) Automated basophil % 0.2-2.0 [facility] Eosinophils/100 WBC Auto (Bl d)on 06-06-2024 Eosinophils/100 WBC (Bld) Automated eosinophil % 0.9-7.0 [facility] Erythrocyte distribution wid th Auto (RBC) [Ratio]on 06-06-2024 Erythrocyte distribution width (RBC) [Ratio] Erythrocyte distribution width [Ratio] by Automated count 11.0-15.0 [facility] Hematocrit Auto (Bld) [Volum e fraction]on 06-06-2024 Hematocrit (Bld) [Volume fraction] Hematocrit [Volume Fraction] of Blood by Automated count Low 42.0-54.0 [facility] Hemoglobin [Mass/volume] in Bloodon 06-06-2024 Hemoglobin (Bld) [Mass/Vol] Hemoglobin [Mass/volume] in Blood Low 14.0-18.0 [facility] Iron binding capacity [Mass/ volume] in Serum or Plasmaon 06-06-2024 Iron binding capacity [Mass/Vol] Iron binding capacity [Mass/volume] in Serum or Plasma Low 250.0-450.0 [facility] Iron saturation [Mass Fracti on] in Serum or Plasmaon 06-06-2024 Iron saturation [Mass fraction] Iron saturation [Mass Fraction] in Serum or Plasma [facility] - Chemistry and C hemistry - challengeon 06-06-2024 Cobalamin (Vitamin B12) [Mass/Vol] 679 pg/mL 232-1245 [facility] Comment on above: Performed at: - L [address] [id number] Director: Jayro Neves PhD, Phone: [phone] Ferritin [Mass/Vol] 212.0 ng/mL 26.0-388.0 [facility] Iron [Mass/Vol] 134.0 ug/dL 65.0-175.0 [facility] - Hematology and Cell countson 06-06-2024 Immature granulocytes/100 WBC (Bld) 0.2 % 0.0-0.5 [facility] Leukocytes [#/volume] correc loren for nucleated erythrocytes in Blood by Automated counon 06-06-2024 WBC corrected for nucl RBC Auto (Bld) [#/Vol] Leukocytes [#/volume] corrected for nucleated erythrocytes in Blood by Automated coun 4.0-11.0 [facility] Lymphocytes Auto (Bld) [#/Vo l]on 06-06-2024 Lymphocytes (Bld) [#/Vol] Lymphocytes [#/volume] in Blood by Automated count 1.2-3.8 [facility] Lymphocytes/100 WBC Auto (Bl d)on 06-06-2024 Lymphocytes/100 WBC (Bld) Lymphocytes/100 leukocytes in Blood by Automated count 20.5-60.0 [facility] MCH Auto (RBC) [Entitic mass ]on 06-06-2024 MCH (RBC) [Entitic mass] MCH [Entitic mass] by Automated count 25.9-34.0 [facility] MCHC Auto (RBC) [Mass/Vol]on 06-06-2024 MCHC (RBC) [Mass/Vol] MCHC [Mass/volume] by Automated count 29.9-35.2 [facility] MCV Auto (RBC) [Entitic vol] on 06-06-2024 MCV (RBC) [Entitic vol] MCV [Entitic volume] by Automated count 80.0-94.0 [facility] Monocytes Auto (Bld) [#/Vol] on 06-06-2024 Monocytes (Bld) [#/Vol] Automated blood monocyte count 0.3-0.8 [facility] Monocytes/100 WBC Auto (Bld) on 06-06-2024 Monocytes/100 WBC (Bld) Automated monocyte % 1.7-12.0 [facility] Neutrophils Auto (Bld) [#/Vo l]on 06-06-2024 Neutrophils (Bld) [#/Vol] Neutrophils [#/volume] in Blood by Automated count 1.4-6.5 [facility] Neutrophils/100 WBC Auto (Bl d)on 06-06-2024 Neutrophils/100 WBC (Bld) Automated neutrophil % 43.0-75.0 [facility] No Panel Informationon 06-06 Eosinophils # (Auto) 0.3 10 3/uL 0.0-0.7 [facility] Folate 21.10 ng/mL 8.60-58.90 [facility] Immature Granulocyte # (Auto) 0.01 10 3/uL 0.00-0.03 [facility] Platelet mean volume Auto (B ld) [Entitic vol]on 06-06-2024 Platelet mean volume (Bld) [Entitic vol] Platelet mean volume [Entitic volume] in Blood by Automated count 9.5-13.5 [facility] Platelets Auto (Bld) [#/Vol] on 06-06-2024 Platelets (Bld) [#/Vol] Platelets [#/volume] in Blood by Automated count 150-450 [facility] RBC Auto (Bld) [#/Vol]on RBC (Bld) [#/Vol] Erythrocytes [#/volume] in Blood by Automated count Low 4.70-6.10 [facility] CBC AUTO DIFFon 02-23-2022 BASO # 0.1 103/ul Normal 0.0-0.1 [facility] Comment on above: Performed By: #### C BC #### [facility] [address] [place] [address] Dr. Sera Gould Basophils/100 WBC (Bld) 0.6 % Normal 0.2-2.0 [facility] Comment on above: Performed By: #### C BC #### [facility] [address] [place] [address] Dr. Sera Gould EO # 0.4 103/ul Normal 0.0-0.7 [facility] Comment on above: Performed By: #### C BC #### [facility] [address] [place] [address] Dr. Sera Gould Eosinophils/100 WBC (Bld) 4.5 % Normal 0.9-7.0 [facility] Comment on above: Performed By: #### C BC #### [facility] [address] [place] [address] Dr. Sera Gould Erythrocyte distribution width (RBC) [Ratio] 13.2 % Normal 11.0-15.0 [facility] Comment on above: Performed By: #### C BC #### [facility] [address] [place] [address] Dr. Sera Gould Hematocrit (Bld) [Volume fraction] 41.2 % Critically low 42.0-54.0 [facility] Comment on above: Performed By: #### C BC #### [facility] [address] [place] [address] Dr. Sera Gould Hemoglobin (Bld) [Mass/Vol] 14.0 g/dL Normal 14.0-18.0 [facility] Comment on above: Performed By: #### C BC #### [facility] [address] [place] [address] Dr. Sera Gould IG # 0.02 10e3/ul Normal 0.00-0.03 [facility] Comment on above: Performed By: #### C BC #### [facility] [address] [place] [address] Dr. Sera Gould IG % 0.2 % Normal 0.0-0.5 [facility] Comment on above: Performed By: #### C BC #### [facility] [address] [place] [address] Dr. Sera Gould LYMPH # 1.5 103/ul Normal 1.2-3.8 [facility] Comment on above: Performed By: #### C BC #### [facility] [address] [place] [address] Dr. Sera Gould Lymphocytes/100 WBC (Bld) 17.6 % Critically low 20.5-60.0 [facility] Comment on above: Performed By: #### C BC #### [facility] [address] [place] [address] Dr. Sera Gould MANUAL DIFF REQ NO Normal [facility] Comment on above: Performed By: #### C BC #### [facility] [address] [place] [address] Dr. Sera Gould MCH (RBC) [Entitic mass] 32.1 pg Normal 25.9-34.0 [facility] Comment on above: Performed By: #### C BC #### [facility] [address] [place] [address] Dr. Sera Gould MCHC (RBC) [Mass/Vol] 34.0 g/dL Normal 29.9-35.2 [facility] Comment on above: Performed By: #### C BC #### [facility] [address] [place] [address] Dr. Sera Gould MCV (RBC) [Entitic vol] 94.5 fL Critically high 80.0-94.0 [facility] Comment on above: Performed By: #### C BC #### [facility] [address] [place] [address] Dr. Sera Gould MONO # 0.9 103/ul Critically high 0.3-0.8 [facility] Comment on above: Performed By: #### C BC #### [facility] [address] [place] [address] Dr. Sera Gould Monocytes/100 WBC (Bld) 10.5 % Normal 1.7-12.0 [facility] Comment on above: Performed By: #### C BC #### [facility] [address] [place] [address] Dr. Sera Gould NEUT # 5.6 103/ul Normal 1.4-6.5 [facility] Comment on above: Performed By: #### C BC #### [facility] [address] [place] [address] Dr. Sera Gould Neutrophils/100 WBC (Bld) 66.6 % Normal 43.0-75.0 [facility] Comment on above: Performed By: #### C BC #### [facility] [address] [address] [address] Sera Gould Platelet mean volume (Bld) [Entitic vol] 9.6 fL Normal 9.5-13.5 [facility] Comment on above: Performed By: #### C BC #### [facility] [address] [address] [address] Sera Gould PLT 226 103/ul Normal 150-450 [facility] Comment on above: Performed By: #### C BC #### [facility] [address] [address] [address] Sera Gould RBC 4.36 106/ul Critically low 4.70-6.10 [facility] Comment on above: Performed By: #### C BC #### [facility] [address] [address] [address] Sera Gould WBC 8.5 103/ul Normal 4.0-11.0 [facility] Comment on above: Performed By: #### C BC #### [facility] [address] [address] [address] Sera Gould PROF CHEM 8 (BAS METB)on Anion gap [Moles/Vol] 10.1 mmol/L Normal [facility] Comment on above: Performed By: #### B MP #### [facility] [address] [place] [address] Dr. Sera Gould Calcium [Mass/Vol] 8.6 mg/dL Normal 8.5-10.1 [facility] Comment on above: Performed By: #### B MP #### [facility] [address] [address] [address] Sera Gould Chloride [Moles/Vol] 103 mmol/L Normal 98-107 [facility] Comment on above: Performed By: #### B MP #### [facility] [address] [place] [address] Dr. Sera Gould CO2 [Moles/Vol] 30.0 mmol/L Normal 21.0-32.0 [facility] Comment on above: Performed By: #### B MP #### [facility] [address] [address] [address] Sera Gould Creatinine [Mass/Vol] 0.99 mg/dL Normal 0.70-1.30 [facility] Comment on above: Performed By: #### B MP #### [facility] [address] [address] [address] Sera Gould EGFR-AF NIGERIAN >60 Normal >=60 [facility] Comment on above: Performed By: #### B MP #### [facility] [address] [address] [address] Sera Gould EGFR-NON AF NIGERIAN >60 Normal >=60 [facility] Comment on above: Performed By: #### B MP #### [facility] [address] [address] [address] Sera Gould Glucose [Mass/Vol] 100 mg/dL Normal 74-106 [facility] Comment on above: Performed By: #### B MP #### [facility] [address] [address] [address] Sera Gould Potassium [Moles/Vol] 4.1 mmol/L Normal 3.5-5.1 [facility] Comment on above: Performed By: #### B MP #### [facility] [address] [address] [address] Sera Gould Sodium [Moles/Vol] 139 mmol/L Normal 136-145 [facility] Comment on above: Performed By: #### B MP #### [facility] [address] [address] [address] Sera Gould Urea nitrogen [Mass/Vol] 19.0 mg/dL Critically high 7.0-18.0 [facility] Comment on above: Performed By: #### B MP #### [facility] [address] [address] [address] Sera Gould Urea nitrogen/Creatinine [Mass ratio] 19.2 mg/mg Normal [facility] Comment on above: Performed By: #### B MP #### [facility] [address] [place], [place] [address] Dr. Sera Gould CBC AUTO DIFFon 02-25-2021 BASO # 0.0 103/ul Normal 0.0-0.1 [facility] Comment on above: Performed By: #### C BC #### [facility] [address] [id number] Viky Mckayla Basophils/100 WBC (Bld) 0.6 % Normal 0.2-2.0 [facility] Comment on above: Performed By: #### C BC #### [facility] [address] [id number] Viky Mckayla EO # 0.2 103/ul Normal 0.0-0.7 [facility] Comment on above: Performed By: #### C BC #### [facility] [address] [id number] Viky Mckayla Eosinophils/100 WBC (Bld) 3.1 % Normal 0.9-7.0 [facility] Comment on above: Performed By: #### C BC #### [facility] [address] [place], [place] [id number] Viky Mckayla Erythrocyte distribution width (RBC) [Ratio] 12.7 % Normal 11.0-15.0 [facility] Comment on above: Performed By: #### C BC #### [facility] [address] [place], [place] [id number] Viky Mckayla Hematocrit (Bld) [Volume fraction] 41.2 % Critically low 42.0-54.0 [facility] Comment on above: Performed By: #### C BC #### [facility] [address] [place], [place] [id number] Viky Mckayla Hemoglobin (Bld) [Mass/Vol] 14.1 g/dL Normal 14.0-18.0 [facility] Comment on above: Performed By: #### C BC #### [facility] [address] [place] [address] Viky Mckayla IG # 0.01 10e3/ul Normal 0.00-0.03 [facility] Comment on above: Performed By: #### C BC #### [facility] [address] [place], [place] [id number] Viky Mckayla IG % 0.2 % Normal 0.0-0.5 [facility] Comment on above: Performed By: #### C BC #### [facility] [address] [place], [place] [id number] Viky Mckayla LYMPH # 1.1 103/ul Critically low 1.2-3.8 [facility] Comment on above: Performed By: #### C BC #### [facility] [address] [place], [place] [id number] Vikyrustam Block Lymphocytes/100 WBC (Bld) 16.9 % Critically low 20.5-60.0 [facility] Comment on above: Performed By: #### C BC #### [facility] [address] [place], [place] [id number] Viky Block MANUAL DIFF REQ NO Normal [facility] Comment on above: Performed By: #### C BC #### [facility] [address] [place], [place] [id number] Viky Mckayla MCH (RBC) [Entitic mass] 31.6 pg Normal 25.9-34.0 [facility] Comment on above: Performed By: #### C BC #### [facility] [address] [place], [place] [id number] Vikyrustam Block MCHC (RBC) [Mass/Vol] 34.2 g/dL Normal 29.9-35.2 [facility] Comment on above: Performed By: #### C BC #### [facility] [address] [place], [place] [id number] Viky Mckayla MCV (RBC) [Entitic vol] 92.4 fL Normal 80.0-94.0 [facility] Comment on above: Performed By: #### C BC #### [facility] [address] [place], [place] [id number] Viky Mckayla MONO # 0.6 103/ul Normal 0.3-0.8 [facility] Comment on above: Performed By: #### C BC #### [facility] [address] [place], [place] [id number] Viky Mckayla Monocytes/100 WBC (Bld) 9.8 % Normal 1.7-12.0 [facility] Comment on above: Performed By: #### C BC #### [facility] [address] [place], [place] [id number] Viky Block NEUT # 4.3 103/ul Normal 1.4-6.5 [facility] Comment on above: Performed By: #### C BC #### [facility] [address] [place], [place] [id number] Viky Block Neutrophils/100 WBC (Bld) 69.4 % Normal 43.0-75.0 [facility] Comment on above: Performed By: #### C BC #### [facility] [address] [place], [place] [id number] Viky Block Platelet mean volume (Bld) [Entitic vol] 10.4 fL Normal 9.5-13.5 [facility] Comment on above: Performed By: #### C BC #### [facility] [address] [place], [place] [id number] Viky Mckayla PLT 217 103/ul Normal 150-450 [facility] Comment on above: Performed By: #### C BC #### [facility] [address] [place], [place] [id number] Viky Mckayla RBC 4.46 106/ul Critically low 4.70-6.10 [facility] Comment on above: Performed By: #### C BC #### [facility] [address] [place], [place] [address] Vikyrustam Grayen WBC 6.2 103/ul Normal 4.0-11.0 [facility] Comment on above: Performed By: #### C BC #### [facility] [address] [place], [place] [id number] Viky Grayen PROF CHEM 8 (BAS METB)on Anion gap [Moles/Vol] 12.3 mmol/L Normal [facility] Comment on above: Performed By: #### B MP #### [facility] [address] [place], [place] [id number] Viky Mckayla Calcium [Mass/Vol] 8.6 mg/dL Normal 8.4-10.2 [facility] Comment on above: Performed By: #### B MP #### [facility] [address] [id number] Viky Mckayla Chloride [Moles/Vol] 105 mmol/L Normal 98-107 [facility] Comment on above: Performed By: #### B MP #### [facility] [address] [id number] Viky Mckayla CO2 [Moles/Vol] 28.8 mmol/L Normal 22.0-30.0 [facility] Comment on above: Performed By: #### B MP #### [facility] [address] [place], [place] [id number] Viky Mckayla Creatinine [Mass/Vol] 0.98 mg/dL Normal 0.66-1.25 [facility] Comment on above: Performed By: #### B MP #### [facility] [address] [place] [address] Viky Mckayla EGFR-AF NIGERIAN >60 Normal >=60 [facility] Comment on above: Performed By: #### B MP #### [facility] [address] [place], [place] [id number] Viky Mckayla EGFR-NON AF NIGERIAN >60 Normal >=60 [facility] Comment on above: Performed By: #### B MP #### [facility] [address] [place] [address] Viky Mckayla Glucose [Mass/Vol] 96 mg/dL Normal 74-106 [facility] Comment on above: Performed By: #### B MP #### [facility] [address] [place] [address] Viky Mckayla Potassium [Moles/Vol] 4.1 mmol/L Normal 3.4-5.0 [facility] Comment on above: Performed By: #### B MP #### [facility] [address] [place], [place] [id number] Viky Mckayla Sodium [Moles/Vol] 142 mmol/L Normal 137-145 [facility] Comment on above: Performed By: #### B MP #### [facility] [address] [place], [place] [address] Viky Block Urea nitrogen [Mass/Vol] 12.0 mg/dL Normal 9.0-20.0 [facility] Comment on above: Performed By: #### B MP #### [facility] [address] [place], [place] [address] Viky Block Urea nitrogen/Creatinine [Mass ratio] 12.2 mg/mg Normal [facility] Comment on above: Performed By: #### B MP #### [facility] [address] [place], [place] [address] Viky Block Vital Signs Date Time Vital Sign Value Performing Clinician Facility 12-01-2024 09:31-0400 Body height 177.8 cm [facility] 12-01-2024 09:31-0400 Body mass index (BMI) [Ratio] 24.6 kg/m2 [facility] 12-01-2024 09:31-0400 Body weight 77.79 kg [facility] 12-01-2024 09:31-0400 Diastolic blood pressure 94 mm[Hg] [facility] 12-01-2024 09:31-0400 Heart rate 73 /min [facility] 12-01-2024 09:31-0400 Respiratory rate 12 /min [facility] 12-01-2024 09:31-0400 Systolic blood pressure 147 mm[Hg] [facility] 09-07-2024 10:08-0400 Body height 177.8 cm [facility] 09-07-2024 10:08-0400 Body mass index (BMI) [Ratio] 23.7 kg/m2 [facility] 09-07-2024 10:08-0400 Body weight 74.95 kg [facility] 09-07-2024 10:08-0400 Diastolic blood pressure 76 mm[Hg] [facility] 09-07-2024 10:08-0400 Heart rate 74 /min [facility] 09-07-2024 10:08-0400 Systolic blood pressure 126 mm[Hg] [facility] 08-29-2024 12:37-0500 Diastolic blood pressure 75 mm[Hg] ISHAAN NKANSAH-AMANKRA [facility] 08-29-2024 12:37-0500 Heart rate 55 /min ISHAAN NKANSAH-AMANKRA [facility] 08-29-2024 12:37-0500 Mean blood pressure 90 mm[Hg] ISHAAN NKANSAH-AMANKRA [facility] 08-29-2024 12:37-0500 Systolic blood pressure 120 mm[Hg] ISHAAN NKANSAH-AMANKRA [facility] 08-29-2024 12:36-0500 Heart rate 57 /min ISHAAN NKANSAH-AMANKRA [facility] 08-29-2024 12:36-0500 SaO2% (BldA) [Mass fraction] 98 % ISHAAN NKANSAH-AMANKRA [facility] 08-29-2024 12:36-0500 Diastolic blood pressure 72 mm[Hg] ISHAAN NKANSAH-AMANKRA [facility] 08-29-2024 12:36-0500 Mean blood pressure 91 mm[Hg] ISHAAN NKANSAH-AMANKRA [facility] 08-29-2024 12:36-0500 Systolic blood pressure 129 mm[Hg] ISHAAN NKANSAH-AMANKRA [facility] 08-02-2024 13:52-0500 Body height 177.8 cm [facility] 08-02-2024 13:52-0500 Body mass index (BMI) [Ratio] 24.2 kg/m2 [facility] 08-02-2024 13:52-0500 Body weight 76.65 kg [facility] 08-02-2024 13:52-0500 Diastolic blood pressure 70 mm[Hg] [facility] 08-02-2024 13:52-0500 Heart rate 76 /min [facility] 08-02-2024 13:52-0500 Respiratory rate 12 /min [facility] 08-02-2024 13:52-0500 Systolic blood pressure 163 mm[Hg] [facility] 07-31-2024 22:02-0500 Diastolic blood pressure 75 mm[Hg] Kaylinn Dokken [facility] 07-31-2024 22:02-0500 Heart rate 68 /min Kaylinn Dokken [facility] 07-31-2024 22:02-0500 Mean blood pressure 90 mm[Hg] Kaylinn Dokken [facility] 07-31-2024 22:02-0500 Respiratory rate 16 /min Kaylinn Dokken [facility] 07-31-2024 22:02-0500 SaO2% (BldA) [Mass fraction] 98 % Kaylinn Dokken [facility] 07-31-2024 22:02-0500 Systolic blood pressure 121 mm[Hg] Kaylinn Dokken [facility] 07-31-2024 21:48-0500 Diastolic blood pressure 70 mm[Hg] Kaylinn Dokken [facility] 07-31-2024 21:48-0500 Heart rate 75 /min Kaylinn Dokken [facility] 07-31-2024 21:48-0500 Mean blood pressure 93 mm[Hg] Kaylinn Dokken [facility] 07-31-2024 21:48-0500 Respiratory rate 16 /min Kaylinn Dokken [facility] 07-31-2024 21:48-0500 SaO2% (BldA) [Mass fraction] 99 % Kaylinn Dokken [facility] 07-31-2024 21:48-0500 Systolic blood pressure 139 mm[Hg] Kaylinn Dokken [facility] 07-31-2024 21:02-0500 Body temperature 98.24 [degF] Kaylinn Dokken [facility] 07-31-2024 21:02-0500 Diastolic blood pressure 81 mm[Hg] Kaylinn Dokken [facility] 07-31-2024 21:02-0500 Heart rate 82 /min Kaylinn Dokken [facility] 07-31-2024 21:02-0500 Respiratory rate 16 /min Kaylinn Dokken [facility] 07-31-2024 21:02-0500 SaO2% (BldA) [Mass fraction] 97 % Kaylinn Dokken [facility] 07-31-2024 21:02-0500 Systolic blood pressure 165 mm[Hg] Kaylinn Dokken [facility] 03-01-2024 10:48-0400 Body height 177.8 cm [facility] 03-01-2024 10:48-0400 Body mass index (BMI) [Ratio] 23.8 kg/m2 [facility] 03-01-2024 10:48-0400 Body weight 75.29 kg [facility] 03-01-2024 10:48-0400 Diastolic blood pressure 89 mm[Hg] [facility] 03-01-2024 10:48-0400 Heart rate 70 /min [facility] 03-01-2024 10:48-0400 Respiratory rate 12 /min [facility] 03-01-2024 10:48-0400 Systolic blood pressure 139 mm[Hg] [facility] 02-26-2023 09:30-0400 Body height 172.72 cm Clinton Ball Other [facility] [employer] Other 02-26-2023 09:30-0400 Body mass index (BMI) [Ratio] 26.54 kg/m2 Clinton Ball Other [employer] [facility] [employer] Other 02-26-2023 09:30-0400 Body weight 79.2 kg Clinton Ball Other [employer] [facility] [employer] Other 02-26-2023 09:30-0400 Diastolic blood pressure 83 mm[Hg] Clinton Ball Other [employer] [facility] [employer] Other 02-26-2023 09:30-0400 Respiratory rate 12 /min Clinton Ball Other [facility] [employer] Other 02-26-2023 09:30-0400 Systolic blood pressure 161 mm[Hg] Clinton Ball Other [facility] [employer] Other 02-14-2023 12:30-0400 Diastolic blood pressure 81 mm[Hg] Paul Greenfield [facility] 02-14-2023 12:30-0400 Heart rate 72 /min Paul Greenfield [facility] 02-14-2023 12:30-0400 Respiratory rate 16 /min Paul Greenfield [facility] 02-14-2023 12:30-0400 SaO2% (BldA) [Mass fraction] 99 % Paul Greenfield [facility] 02-14-2023 12:30-0400 Systolic blood pressure 163 mm[Hg] Paul Greenfield [facility] 02-14-2023 11:06-0400 Body temperature 98.24 [degF] Paul Greenfield [facility] 02-14-2023 11:06-0400 Diastolic blood pressure 91 mm[Hg] Paul Greenfield [facility] 02-14-2023 11:06-0400 Heart rate 77 /min Paul Jean Pierre [facility] 02-14-2023 11:06-0400 Respiratory rate 18 /min Paul Jean Pierre [facility] 02-14-2023 11:06-0400 SaO2% (BldA) [Mass fraction] 100 % Paulroberto Greenfield [facility] 02-14-2023 11:06-0400 Systolic blood pressure 155 mm[Hg] Paul Jean Pierre [facility] 02-14-2023 10:51-0400 Body temperature 98.42 [degF] Paul Greenfield [facility] 02-14-2023 10:51-0400 Diastolic blood pressure 86 mm[Hg] Paulroberto Greenfield [facility] 02-14-2023 10:51-0400 Heart rate 79 /min Paul Greenfield [facility] 02-14-2023 10:51-0400 Respiratory rate 16 /min Paul Greenfield [facility] 02-14-2023 10:51-0400 SaO2% (BldA) [Mass fraction] 100 % Paul Greenfield [facility] 02-14-2023 10:51-0400 Systolic blood pressure 169 mm[Hg] Paul Greenfield [facility] Encounters Encounter Date Encounter Type Care Provider Facility Start: 04-24-2025 ambulatory ISHAAN NKANSAH-AMANKRA Facility:[facility] Start: 12-01-2024 End: 12-01-2024 ambulatory [place] Work Phone: Start: 12-01-2024 End: 12-01-2024 Patient encounter procedure [facility] Work Phone: Start: 10-24-2024 End: 10-24-2024 ambulatory ISHAAN NKANSAH-AMANKRA Facility: [place] Start: 09-07-2024 End: 09-07-2024 ambulatory [place] Work Phone: Start: 09-07-2024 End: 09-07-2024 Patient encounter procedure [facility] Work Phone: Start: 09-01-2024 End: 09-01-2024 ambulatory ISHAAN NKANSAH-AMANKRA [facility] Start: 08-31-2024 Non-patient / Non-visit [facility] Work Phone: Start: 08-30-2024 End: 08-31-2024 ambulatory ISHAAN NKANSAH-AMANKRA Facility:[facility] Start: 08-29-2024 End: 08-29-2024 ambulatory ISHAAN NKANSAH-AMANKRA Facility:[facility] Start: 08-29-2024 End: 08-29-2024 Patient encounter procedure ISHAAN NKANSAH-AMANKRA [facility] Start: 08-21-2024 End: 08-21-2024 ambulatory ISHAAN NKANSAH-AMANKRA Facility:[facility] Start: 08-21-2024 End: 08-21-2024 Patient encounter procedure ISHAAN NKANSAH-AMANKRA [facility] Start: 08-16-2024 End: 08-16-2024 ambulatory ISHAAN NKANSAH-AMANKRA Facility:[facility] Start: 08-16-2024 End: 08-16-2024 Patient encounter procedure ISHAAN AVALOSAH-AMANKRA [facility] Start: 08-14-2024 End: 08-14-2024 ambulatory ISHAAN BAILEYAH-AMANKRA Facility:[facility] Start: 08-14-2024 End: 08-14-2024 Lab Drop off ISHAAN BAILEYAH-AMANKRA [facility] Start: 08-14-2024 End: 08-14-2024 ambulatory ISHAANYURIDIA AVALOSAH-AMANKRA Facility:[facility] Start: 08-14-2024 End: 08-14-2024 Patient encounter procedure ISHAAN AVALOSAH-AMANKRA [facility] Start: 08-03-2024 ambulatory ISHAAN MENDOZA-AMANKRA Facility:[facility] Start: 08-02-2024 End: 08-02-2024 ambulatory [place] Work Phone: Start: 08-02-2024 End: 08-02-2024 Patient encounter procedure [facility] Work Phone: Start: 07-31-2024 End: 07-31-2024 Emergency department patient visit Lino Dietrich [facility] Start: 06-06-2024 Non-patient / Non-visit [facility] Work Phone: Start: 03-01-2024 End: 03-01-2024 ambulatory [place] Work Phone: Start: 03-01-2024 End: 03-01-2024 Patient encounter procedure [facility] Work Phone: Start: 02-27-2024 Patient encounter procedure [facility] Start: 05-13-2023 End: 05-13-2023 ambulatory Clinton Sharlene Other [facility] Other Start: 05-13-2023 Office outpatient vi sit 15 minutes Clinton Fuentes [facility] Start: 03-10-2023 End: 03-10-2023 ambulatory Clinton Fuentes Other [facility] Other Start: 03-10-2023 Telephone encounter Clinton Fuentes [facility] Start: 02-26-2023 End: 02-26-2023 ambulatory Clinton Fuentes Other [facility] Other Start: 02-26-2023 Patient encounter procedure Clinton Fuentes [facility] Start: 02-14-2023 End: 02-14-2023 Emergency department patient visit Paul Greenfield [facility] Start: 02-08-2023 End: 02-08-2023 ambulatory Clinton Fuentes Other [facility] Other Start: 02-08-2023 Telephone encounter Clinton LLAMAS [facility] Start: 02-06-2023 End: 02-06-2023 ambulatory Clinton Fuentes Other [facility] Other Start: 02-06-2023 Telephone encounter Clinton LLAMAS [facility] Start: 02-23-2022 End: 02-24-[address] CLINTON FUENTES Facility:[facility] Start: 02-22-2022 Adult health examination Clinton Fuentes Other [facility] Other Start: 02-25-2021 End: 02-26-[address] CLINTON FUENTES Facility:[facility] Procedures Date Procedure Procedure Detail Performing Clinician Start: 02-23-[address] SHRUTI FUENTES Comment on above: Performed By: #### P SASC #### [facility] [address] [address] [address] Sera Gould Start: 02-25-[address] SHRUTI FUENTES Comment on above: Performed By: #### P SASC #### [facility] [address] [address] Viky Block Start: 01-25-2019 Arthroscopy of knee Alan Greenfield Start: 10-16-2015 General examination of patient Clinton Fuentes Other Start: 10-16-2015 Hyperlipidemia screening Clinton Fuentes Other Start: 10-16-2015 Screening for malign ant neoplasm of colon Clinton Fuentes Other Start: 03-26-2014 Screening for malign ant neoplasm of prostate Clinton Fuentes Other Start: 06-28-2010 Left Foot Surgery Paul Greenfield Depression screening Fernanda Fuentes Other Screening for malign ant neoplasm of prostate Clinton Fuentes Other Tonsillectomy Paul Greenfield Plan of Treatment Date Care Activity Detail Author Comprehensive metabo lic 2000 panel - Serum or Plasma [facility] enter [facility] Abdomen and Pelvis W contrast IV [facility] Immunizations Immunization Date Immunization Notes Care Provider Fa cility 05-20-2024 Pneumococcal Conjuga te Vaccine, 21 valent [facility] 02-26-2023 influenza virus vaccine, unspecified formulation [facility] 02-26-2023 influenza, high dose seasonal, preservative-free Clinton Fuentes Other [facility] Other 02-14-2023 tetanus toxoid, redu abilio diphtheria toxoid, and acellular pertussis vaccine, adsorbed Paul Greenfield [facility] 04-24-2022 influenza virus vaccine, unspecified formulation [facility] 04-24-2022 influenza, high dose seasonal, preservative-free Clinton Sharlene Other [facility] Other 05-08-2021 influenza virus vaccine, split virus (incl. purified surface antigen) Clinton Fuentes Other [facility] Other 05-08-2021 influenza virus vaccine, unspecified formulation [facility] 09-20-2020 COVID-19, mRNA, LNP- S, PF, 30 mcg/0.3 mL dose Paul Greenfield [facility] Comment on above: Reason for Medicatio n: Prophylaxis 08-30-2020 COVID-19, mRNA, LNP- S, PF, 30 mcg/0.3 mL dose Paul Greenfield [facility] Comment on above: Reason for Medicatio n: Prophylaxis 04-19-2020 influenza virus vaccine, split virus (incl. purified surface antigen) Clinton Fuentes Other [facility] Other 04-19-2020 influenza virus vaccine, unspecified formulation [facility] 04-08-2019 influenza virus vaccine, split virus (incl. purified surface antigen) Clinton Fuentes Other [facility] Other 04-08-2019 influenza virus vaccine, unspecified formulation [facility] 06-25-2018 influenza virus vaccine, split virus (incl. purified surface antigen) Clinton Fuentes Other [facility] Other 06-25-2018 influenza virus vaccine, unspecified formulation [facility] 02-17-2018 pneumococcal polysaccharide vaccine, 23 valent Clinton Fuentes Other [facility] 02-15-2017 pneumococcal conjuga te vaccine, 13 valent Clinton Fuentes Other [facility] 02-15-2017 pneumococcal Conjuga te, unspecified formulation; Translations: [Need for prophylactic vaccination against Streptococcus pneumoniae (pneumococcus)] Clinton Fuentes Other [facility] Other Payers Date Payer Category Payer Medicare [id number] 1959 Unknown [id number] 1950 Unknown [id number] 2.16.84 [id number] 1950 Unknown [id number] 2.16.84 [id number] 1950 Unknown [id number] 2.16.8 40.1.172591.3.579.2.727 1950 Unknown [id number] 2.16.8 40.1.517972.3.579.2.72 1950 Unknown [id number] 2.16.8 40.1.901825.3.579.2.72 1950 Unknown [id number] 2.16.8 40.1.968036.3.579.2.72 1950 Unknown [id number] 2.16.8 40.1.490045.3.579.2.727 1950 Unknown [id number] 2.16.8 40.1.005010.3.579.2.72 1950 Unknown [id number] 2.16.8 40.1.724104.3.579.2.727 1950 Unknown [id number] 2.16.8 40.1.551325.3.579.2.72 1950 Unknown [id number] 2.16.8 40.1.445832.3.579.2.727 1950 Unknown [id number] 2.16.8 40.1.888714.3.579.2.72 1950 Unknown [id number] 2.16.8 40.1.200371.3.579.2.727 1950 Unknown [id number] 2.16.8 40.1.753317.3.579.2.727 1950 Unknown [id number] 2.16.8 40.1.190623.3.579.2.727 1950 Unknown [id number] 2.16.8 40.1.208783.3.579.2.727 1950 Unknown [id number] 2.16.8 40.1.245057.3.579.2.727 Self-pay Self Pay [id number] Social History Date Type Detail Facility Sex Assigned At [facility] Tobacco smoking status No Smokin g Status Entered [facility] Start: 03-16-2019 End: 08-11-2024 Tobacco smoking status NHIS Never smoked tobacco (finding) [facility] Start: 1950 Sex Assigned At Male F [facility] Start: 08-02-2024 End: 12-01-2024 Sex Male (finding) [facility] Functional Status Date Assessment Result Facility 08-29-2024 Functional Status No [facility] 08-21-2024 Functional Status N/A [facility] 07-31-2024 Functional Status N/A [facility] 02-14-2023 Functional Status N/A [facility] Clinical Notes 02-26-2019 to 10-24-2024 Note Date & Type Note Facility 10-24-2024 Note Patient Education Urology Benign Prostatic Hyperplasia Benign prostatic hyperplasia (BPH) is an enlarged prostate gland that is caused by the normal aging process. The prostate may get bigger as a man gets older. The condition is not caused by cancer. The prostate is a walnut-sized gland that is involved in the production of semen. It is located in front of the rectum and below the bladder. The bladder stores urine. The urethra carries stored urine out of the body. An enlarged prostate can press on the urethra. This can make it harder to pass urine. The buildup of urine in the bladder can cause infection. Back pressure and infection may progress to bladder damage and kidney (renal) failure. What are the causes? This condition is part of the normal aging process. However, not all men develop problems from this condition. If the prostate enlarges away from the urethra, urine flow will not be blocked. If it enlarges toward the urethra and compresses it, there will be problems passing urine. What increases the risk? This condition is more likely to develop in men older than 50 years. What are the signs or symptoms? Symptoms of this condition include: ??? Getting up often during the night to urinate. ??? Needing to urinate frequently during the day. ??? Difficulty starting urine flow. ??? Decrease in size and strength of your urine stream. ??? Leaking (dribbling) after urinating. ??? Inability to pass urine. This needs immediate treatment. ??? Inability to completely empty your bladder. ??? Pain when you pass urine. This is more common if there is also an infection. ??? Urinary tract infection (UTI). How is this diagnosed? This condition is diagnosed based on your medical history, a physical exam, and your symptoms. Tests will also be done, such as: ??? A post-void bladder scan. This measures any amount of urine that may remain in your bladder after you finish urinating. ??? A digital rectal exam. In a rectal exam, your health care provider checks your prostate by putting a lubricated, gloved finger into your rectum to feel the back of your prostate gland. This exam detects the size of your gland and any abnormal lumps or growths. ??? An exam of your urine (urinalysis). ??? A prostate specific antigen (PSA) screening. This is a blood test used to screen for prostate cancer. ??? An ultrasound. This test uses sound waves to electronically produce a picture of your prostate gland. Your health care provider may refer you to a specialist in kidney and prostate diseases (urologist). How is this treated? Once symptoms begin, your health care provider will monitor your condition (active surveillance or watchful waiting). Treatment for this condition will depend on the severity of your condition. Treatment may include: ??? Observation and yearly exams. This may be the only treatment needed if your condition and symptoms are mild. ??? Medicines to relieve your symptoms, including: ? Medicines to shrink the prostate. ? Medicines to relax the muscle of the prostate. ??? Surgery in severe cases. Surgery may include: ? Prostatectomy. In this procedure, the prostate tissue is removed completely through an open incision or with a laparoscope or robotics. ? Transurethral resection of the prostate (TURP). In this procedure, a tool is inserted through the opening at the tip of the penis (urethra). It is used to cut away tissue of the inner core of the prostate. The pieces are removed through the same opening of the penis. This removes the blockage. ? Transurethral incision (TUIP). In this procedure, small cuts are made in the prostate. This lessens the prostate's pressure on the urethra. ? Transurethral microwave thermotherapy (TUMT). This procedure uses microwaves to create heat. The heat destroys and removes a small amount of prostate tissue. ? Transurethral needle ablation (TUNA). This procedure uses radio frequencies to destroy and remove a small amount of prostate tissue. ? Interstitial laser coagulation (ILC). This procedure uses a laser to destroy and remove a small amount of prostate tissue. ? Transurethral electrovaporization (TUVP). This procedure uses electrodes to destroy and remove a small amount of prostate tissue. ? Prostatic urethral lift. This procedure inserts an implant to push the lobes of the prostate away from the urethra. Follow these instructions at home: ??? Take [id number] and prescription medicines only as told by your health care provider. ??? Monitor your symptoms for any changes. Contact your health care provider with any changes. ??? Avoid drinking large amounts of liquid before going to bed or out in public. ??? Avoid or reduce how much caffeine or alcohol you drink. ??? Give yourself time when you urinate. ??? Keep all follow-up visits. This is important. Contact a health care provider if: ??? You have unexplained back pain. ??? Your symptoms do not get (more content not included)... [facility] 09-07-2024 Evaluation note Diagnosis Onset Date Resolution Benign prostatic hyperplasia with lower urinary tract symptoms acute August 9:54am Hematuria acute September 07 9:54am Hypertension acute September 07, 2024 9:54am Hypertension acute December 01 9:01am BPPV (benign paroxysmal positional vertigo) noneactive December 01 9:01am Impacted cerumen of both ears noneactive December 01, 2024 9 :01am [facility] Work Phone: [phone] NoteConsultation Note Chief Complaint BPH w/ LUTS Reason for Consultation Medical mgt. History of Present Illness No acute events overnight. Patient denies CP, pressure, palpitations, N/V, SOB or paresthesia. Review of Systems Constitutional: Negative Eye: Negative. Ear/Nose/Mouth/Throat: Negative. Respiratory: Negative Cardiovascular: Negative. Gastrointestinal: Denies abd pain. Passing flatus. Last BM: 08/30 Genitourinary: + 3 way arcos w/ CBI, intermittent bladder spasms - mild Musculoskeletal: Negative. Additional ROS info: Except as noted in the above Review of Systems and in the History of Present Illness all other systems have been reviewed and are negative or noncontributory Physical Exam Vitals & Measurements T: 36.4 ???C(Axillary) TMIN: 36.2 ???C(Axillary) TMAX: 36.5 ???C(Oral) HR: 54(Monitored) RR: 18 BP:144/78 SpO2: 99% General: Calm, able to communicate needs, NAD Head: Normocephalic/atraumatic Eyes: Pupils equal, round, Conjunctivae and sclerae normal, HEENT: Mucous membrane moist. Tongue normal Neck: Trachea midline, neck supple, Chest: No chest wall deformity, no chest wall tenderness Lungs: CTA thakkar Cardio: Normal rate, apical is regular, no edema. Pulses: Normal capillary refill Abdomen: Soft, non-distended, non-tender, normal BS : Three-way Arcos, CBI with moderate flow rate with serosanguineous drainage, patient had just been up ambulating and returned to his chair. It does clear to a pink, within 5 minutes. Musculoskeletal: No deformity or scoliosis noted. Normal ROM for age. Integumentary: Warm, dry, Extremity: No clubbing, Neurologic: Alert, oriented x4, , follows commands, Mental status: Pleasant & cooperative, approp. affect, Assessment/Plan Awaiting med rec - nursing aware to complete 1. BPH with elevated PSA (N40.0: Benign prostatic hyperplasia without lower urinary tract symptoms) Consult urology: -08/30: TURP 2/2 benign prostatic hypertrophy with LUTS. -CBI -Trend H&H -Pain mgt. -Education: Oral pain med regimen, I.S. and bowel regimen to avoid constipation Thank you for the opportunity to assist in the mgt. of your patient 2. Elevated prostate specific antigen [PSA] (R97.20: Elevated prostate specific antigen [PSA]) -MGT per urology 3. HTN [Hypertension] (I10: Essential (primary) hypertension) -Awaiting med rec 4. Hypercholesterolemia (E78.00: Pure hypercholesterolemia, unspecified) - Diet controlled 5. GERD (gastroesophageal reflux disease) (K21.9: Gastro-esophageal reflux disease without esophagitis) -PPI 6. 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 to urology Orders: pantoprazole, 40 mg = 1 tab(s), Tab-DR, Oral, Daily, NOW, Start date 08/31/24 9:58:00 EST, 259:58:00 EST Communication Order Physician to Nursing -Plan discussed w/ patient, nursing staff and CRM. This report was transcribed using voice recognition software. Every effort was made to ensure accuracy, however, inadvertently computerized senior health consultant mistakes may be present. Attestation Case reviewed/discussed w/ Dr. Sabillon who is in agreement with POC. Problem List/Past Medical History Ongoing Acute prostatitis with hematuria BPH with obstruction/lower urinary tract symptoms GERD (gastroesophageal reflux disease) Gross hematuria Hematuria HTN [Hypertension] Hypercholesterolemia Historical No qualifying data Procedure/Surgical History TURP - Transurethral resection of prostate (08/30/2024), Arthroscopy of knee (01/25/2019), Left Foot Surgery (2010), Tonsillectomy. Medications Inpatient hydrALAZINE 20 mg/mL Inj, 10 mg= 0.5 mL, IV Push, q6hr, PRN Levsin 0.125 mg SL Tab, 0.125 mg= 1 tab(s), SubLingual, TID, PRN melatonin, 3 mg= 1 tab(s), Oral, Bedtime, PRN NS 1000 mL Soln-IV 1,000 mL, 1000 mL, IV oxyCODONE 5 mg Tab, 5 mg= 1 tab(s), Oral, q6hr, PRN Pantoprazole [address] Tab, 40 mg= 1 tab(s), Oral, Daily Robaxin 500 mg Tab, 500 mg= 1 tab(s), Oral, BID Senokot 8.6 mg Tab, 17.2 mg= 2 tab(s), Oral, BID, PRN Sodium Chloride 0.9% IV Sakshi 1000 mL 1,000 mL, 1000 mL, IV Tylenol 325 mg Tab, 650 mg= 2 tab(s), Oral, q6hrFT Zofran 4 mg/2 mL Injection, 4 mg= 2 mL, IV Push, q6hr, PRN Home benazepril 10 mg Tab, 10 mg= 1 tab(s), Oral, Daily Pyridium 100 mg Tab, 100 mg= 1 tab(s), Oral, TID tamsulosin 0.4 mg Cap, 0.4 mg= 1 cap(s), Oral, Daily Allergies No Known Allergies Social History Alcohol - Low Risk, 05/28/2011 Never., 08/11/2024 Current, 1-2 times per month, 05/28/2011 Substance Abuse - Denies Substance Abuse, 04/28/2010 Never., 08/11/2024 Tobacco - Denies Tobacco Use, 04/28/2010 Never (less than 100 in lifetime) Tobacco Use:., 08/11/2024 Family History Acute myocardial infarction: Father. Diabetes mellitus: Mother. Immunizations Vaccine Date Status Comments diphtheria/pertussis, (more content not included)...[facility] Comment on above:Result Comment: Electronically Signed By: Cheri HAMILTON\.br\Date and Time Signed: 08/31/24 10:03 EST\.br\Electronically Co-Signed By: Cheri HAMILTON\.br\Date and Time Co-Signed: 08/31/24 10:05 EST\.br\Electronically Co-Signed By: Matty Sabillon III, DO.br\Date and Time Co-Signed: 08/31/24 20:48 [id number] NoteDischarge Summary Patient: RODNEY GRAY Age: 73 years Sex: Male : 1950 Associated Diagnoses: None Author: ISHAAN ROMERO MD Discharge Information Discharge Summary Information: Admitted 08/30/2024, Discharged 08/31/2024. Physical Examination General: Alert and oriented x 3, NAD Cardiovascular: Regular rate and rhythm Lungs: Nonlabored breathing on room air Extremities: No peripheral edema noted, SCD's in place, no calf tenderness noted on palpation Abdomen: Soft, nontender, nondistended with no guarding or rigidity noted : Three-way Arcos catheter in place with clear yellow urine off CBI Hospital Course Patient is a 73-year-old male with BPH with LUTS who presented for the aforementioned procedure. H&P was reviewed, informed consent was obtained, patient understood risk, benefits, alternatives of the procedure and wished to proceed. He underwent a TURP on 08/30. He did well in the postoperative period. He was ambulating without difficulty, pain was well-controlled, he was afebrile vital signs stable, CBI was weaned to clear yellow and on postop day 1 he was deemed appropriate for discharge. He will follow-up tomorrow for catheter removal in the office. Encourage patient to hydrate vigorously, he will continue his Flomax for 1 month. He will follow-up in the office in 4 to 6 weeks. Discharge Plan Discharge Time Discharge time > 30 min. Discharge Summary Plan Discharge Status: stable. Discharge instructions given: to patient. Discharge disposition: discharge to home into the care of family member. Prescriptions: continue same medications. Course Progressing as expected. Education and Follow-up Counseled[facility]Result Comment: Electronically Signed By: ISHAAN ROMERO MD\.br\Date and Time Signed: 08/31/24 11:34 [id number] NoteProgress Note-Physician Patient: RODNEY GRAY Age: 73 years Sex: Male : 1950 Associated Diagnoses: None Author: Payam Cotto Jr., DO Postoperative Information Postoperative disposition: Postoperative disposition: Home. Optimetrix number: Optimetrix number [id number]. Anesthetic utilized: General. Physical Examination Vital Signs 08/30/2024 10:06 EST Heart Rate Monitored 53 bpm LOW SpO2 97 % 08/30/2024 10:06 EST Systolic Blood Pressure 134 mmHg Diastolic Blood Pressure 68 mmHg Blood Pressure Location Right arm Mean Arterial Pressure, Monitered 90 mmHg 08/30/2024 10:05 EST Respiratory Rate 16 br/min 08/30/2024 9:55 EST Temperature Temporal Artery 36.3 DegC Heart Rate Monitored 53 bpm LOW Respiratory Rate Monitored 16 br/min Systolic Blood Pressure 127 mmHg Diastolic Blood Pressure 68 mmHg Mean Arterial Pressure, Cuff 88 mmHg SpO2 98 % 08/30/2024 9:50 EST Heart Rate Monitored 51 bpm LOW Respiratory Rate Monitored 13 br/min Systolic Blood Pressure 131 mmHg Diastolic Blood Pressure 82 mmHg Mean Arterial Pressure, Cuff 98 mmHg SpO2 98 % 08/30/2024 9:35 EST Heart Rate Monitored 63 bpm Respiratory Rate Monitored 14 br/min Systolic Blood Pressure 133 mmHg Diastolic Blood Pressure 71 mmHg Mean Arterial Pressure, Cuff 92 mmHg SpO2 98 % 08/30/2024 9:30 EST Heart Rate Monitored 60 bpm Respiratory Rate Monitored 14 br/min Systolic Blood Pressure 124 mmHg Diastolic Blood Pressure 81 mmHg Mean Arterial Pressure, Cuff 95 mmHg SpO2 100 % 08/30/2024 9:25 EST Heart Rate Monitored 64 bpm Respiratory Rate Monitored 16 br/min Systolic Blood Pressure 122 mmHg Diastolic Blood Pressure 79 mmHg Mean Arterial Pressure, Cuff 93 mmHg SpO2 100 % 08/30/2024 9:20 EST Temperature Temporal Artery 36.4 DegC Heart Rate Monitored 60 bpm Respiratory Rate Monitored 16 br/min Systolic Blood Pressure 133 mmHg Diastolic Blood Pressure 74 mmHg Mean Arterial Pressure, Cuff 94 mmHg SpO2 100 % Pain Assessment: Controlled. General: Awake, Alert, Appropriate. Respiratory: Adequate air exchange, Non-labored. Cardiovascular: Stable, Normal peripheral perfusion. Neurological: Neurologic exam at baseline. No changes.. Assessment Anesthetic outcome No anesthetic complications noted. No nausea/vomiting. Review / Management Condition: Stable. Plan Transfer/Discharge: Transfer/Discharge Discharge when meets criteria ( From PACU to Ambulatory Surgery Unit, and To home ).[facility]Result Comment: Electronically Signed By: Payam Cotto Jr., DO\Date and Time Signed: 08/30/24 11:04 [id number] NoteProgress Note-Physician Patient: RODNEY GRAY Age: 73 years Sex: Male : 1950 Associated Diagnoses: None Author: Payam Cotto Jr., DO Preoperative Information Anesthesia Preop Info NPO since midnight Anesthesia history: Patient history: No prior anesthetic problems. Informed consent: Signed by patient. Re-evaluation prior to induction: Initial evaluation reviewed: No significant change. Health Status Allergies: Allergic Reactions (Selected) No Known Allergies, Allergies (1) Active Severity Reaction No Known Allergies None Documented Current medications: (Selected) Inpatient Medications Ordered HYDROmorphone 1 mg/mL injectable solution: 0.4 mg = 0.4 mL, Injection, IV Push, q4min PRN Pain for 5 dose(s), Stop date Limited # of times, Routine, Start date 08/30/24 7:01:00 EST, 08/30/24 7:01:00 EST Sodium Chloride 0.9% IV Sakshi 1000 mL 1,000 mL: 1,000 mL, IV, 150 mL/hr, Routine, Start date 256:00:00 EST, 6.7 hour(s), Total volume (mL): 1,000, 76.8 kg, 1.94, m2 cefazolin additive + Sodium Chloride 0.9% intravenous solution 50 mL: 2 gm = 1 EA, Powder-Inj, IV Piggyback, Once, Stop date 08/30/24 6:00:00 EST, Routine, Start date 08/30/24 6:00:00 EST, 100 mL/hr,Infuse over 30 minute(s), HOLD if patient has history of anaphylactic allergic reaction to Penicillin. promethazine additive 12.5 mg + Sodium Chloride 0.9% IV Sakshi 50 mL (INT) 50 mL: IV Piggyback, Once PRN Nausea/Vomiting, Routine, Start date 08/30/24 7:01:00 EST, 151.5 mL/hr, Infuse over 20 minute(s),08/30/24 7:01:00 EST Documented Medications Documented benazepril 10 mg Tab: 10 mg = 1 tab(s), Oral, Daily, Refills(s) 0, High blood pressure tamsulosin 0.4 mg Cap: 0.4 mg = 1 cap(s), Oral, Daily, Other (see comment), Home Medications (2) Active benazepril 10 mg Tab 10 mg = 1 tab(s), Oral, Daily tamsulosin 0.4 mg Cap 0.4 mg = 1 cap(s), Oral, Daily , Medications (4) Active Scheduled: (1) ceFAZolin + Sodium Chloride 0.9% Minibag 50 mL 2 gm 1 EA, IV Piggyback, Once Continuous: (1) Sodium Chloride 0.9% 1,000 mL 1,000 mL, IV, 150 mL/hr PRN: (2) HYDROmorphone 1 mg/mL SOLN [F] 0.4 mg 0.4 mL, IV Push, q4min promethazine 12.5 mg + Sodium Chloride 0.9% 50 mL 12.5 mg 0.5 mL, IV Piggyback, Once Problem list: All Problems Acute prostatitis with hematuria / SNOMED CT 402444619 / Confirmed BPH with obstruction/lower urinary tract symptoms / SNOMED CT 2980857943 / Confirmed GERD (gastroesophageal reflux disease) / SNOMED CT 771348121 / Confirmed Gross hematuria / SNOMED CT 302042609 / Confirmed Hematuria / SNOMED CT 208313280 / Confirmed HTN [Hypertension] / ICD-9-CM 401.9 / Confirmed Hypercholesterolemia / SNOMED CT 34877793 / Confirmed Histories Past Medical History: Active HTN [Hypertension] (401.9) Procedure history: right Arthroscopy of knee ([id number]) on 01/25/2019 at 68 Years. Left Foot Surgery in 2010 at 60 Years. Tonsillectomy ([id number]). Social History Social & Psychosocial Habits Alcohol 08/30/2024 Use: Current Frequency: 1-2 times per month 08/30/2024 Risk Assessment: Low Risk 08/30/2024 Use: Never Substance Abuse 08/30/2024 Risk Assessment: Denies Substance Abuse Tobacco 08/30/2024 Risk Assessment: Denies Tobacco Use . Physical Examination Vital Signs 08/30/2024 6:08 EST Heart Rate Monitored 60 bpm Systolic Blood Pressure 132 mmHg Diastolic Blood Pressure 71 mmHg Blood Pressure Location Left arm Mean Arterial Pressure, Monitered 92 mmHg 08/30/2024 6:07 EST Heart Rate Monitored 57 bpm LOW SpO2 98 % 08/30/2024 6:06 EST Respiratory Rate 16 br/min 08/30/2024 6:06 EST Systolic Blood Pressure 129 mmHg Diastolic Blood Pressure 75 mmHg Blood Pressure Location Right arm Mean Arterial Pressure, Monitered 93 mmHg 08/30/2024 6:06 EST Temperature Axillary 36.8 DegC HI 08/29/2024 12:37 EST Heart Rate Monitored 55 bpm LOW Systolic Blood Pressure 120 mmHg Diastolic Blood Pressure 75 mmHg Mean Arterial Pressure, Monitered 90 mmHg 08/29/2024 12:36 EST Heart Rate Monitored 57 bpm LOW SpO2 98 % 08/29/2024 12:36 EST Systolic Blood Pressure 129 mmHg Diastolic Blood Pressure 72 mmHg Mean Arterial Pressure, Monitered 91 mmHg Measurements from flowsheet : Measurements 08/29/2024 12:26 EST Height/Length Measured 177 cm Height/Length Measured 177 cm Height/Length Dosing 177.0 cm Weight Dosing 76.8 kg Weight Measured 76.8 kg Weight Measured 76.8 kg Airway: Mallampati classification: II (soft palate, fauces, uvula visible). Respiratory: Lungs are clear to auscultation, Respirations are non-labored. Cardiovascular: Regular rhythm. Review / Management Results review: Lab results 08/29/2024 12:50 EST WBC 6.6 E9/L RBC 4.1 E12/L LOW HGB 13.1 gm/dL LOW Hct 37.3 % LOW MCV 91.6 fL MCH 32.2 pg MCHC 35.2 gm/dL RDW 13.6 % Platelet 182.0 E9/L MPV 8.5 fL Neutro Auto 67.6 % Lymph Auto 19.2 % Marshall Auto 9.0 % Eos Auto 3.7 % Basophil A (more content not included)...[facility]Result Comment: Electronically Signed By: Payam Cotto Jr., DO\.br\Date and Time Signed: 08/30/24 07:03 [id number] NoteDischarge Summary Patient: RODNEY GRAY Age: 73 years Sex: Male : 1950 Associated Diagnoses: None Author: NICK BRITO, ISHAAN Procedure SURGEON: Ishaan Romero MD PREOPERATIVE DIAGNOSIS: BPH with LUTS POSTOPERATIVE DIAGNOSIS: Same PROCEDURE: Cystoscopy, transrectal ultrasound of prostate FINDINGS: Prostate volume 65 cc, bilobar hyperplasia with a slightly prominent median lobe ANESTHESIA: Local INTRAVENOUS FLUIDS: None ESTIMATED BLOOD LOSS: 0cc TUBES AND DRAINS: None SPECIMENS: None COMPLICATIONS: None INDICATIONS FOR PROCEDURE: Patient is a 73-year-old male presenting with BPH with LUTS for the aforementioned procedure. H&P was reviewed, informed consent was obtained, patient understood risk, benefits, alternatives of the procedure and wished to proceed. OPERATIVE DETAIL: He was brought to the operative suite and placed in supine position and prepped and draped in normal sterile fashion. Timeout performed confirming patient, procedure, side, all normal you. A well-lubricated 16 Armenian flexible cystoscope was then inserted into urethral meatus and advanced into the bladder. We noted that the patient had bilobar hyperplasia with a slightly prominent median lobe. No tumors or lesions noted in the bladder. He was then placed in the left lateral decubitus position and the transrectal probe was inserted into the rectum and ultrasound images of the prostate was obtained. We noted the prostate to be approximately 65 cc after measurement. The probe was then removed. P stacy was then transferred to the PACU in stable condition. This concluded the procedure. He will be scheduled for a transurethral section of prostate PLAN: F/U in 1 to 2 weeks for transurethral resection of the prostateSt. [facility]Comment [facility] above:Result Comment: Electronically Signed By: NICK BRITO, ISHAAN\.br\Date and Time Signed: 08/21/24 14:20 EST 08-14-2024 Hospital Discharge instructions Patient Education 08/14/2024 09:51:18 Transrectal Ultrasound Transrectal Ultrasound A transrectal ultrasound is a procedure that uses sound waves to create images of the prostate gland and nearby tissues. For this procedure, an ultrasound probe is placed in the rectum. The probe sends sound waves through the wall of the rectum into the prostate gland. The prostate is a walnut-sized gland that is located below the bladder and in front of the rectum. The images show the size and shape of the prostate gland and nearby structures. You may need this test if you have: Trouble urinating. Trouble getting your partner (infertility). An abnormal result from a prostate screening exam. Tell a health care provider about: Any allergies you have. All medicines you are taking, including vitamins, herbs, eye drops, creams, and wgoc-tem-xlnjafz medicines. Any bleeding problems you have. Any surgeries you have had. Any medical conditions you have. Any prostate infections you have had. What are the risks? Generally, this is a safe procedure. However, problems may occur, including: Discomfort during the procedure. Blood in your urine or sperm after the procedure. This may occur if a sample of tissue is taken to look at under a microscope (biopsy) during the procedure. What happens before the procedure? Your health care provider may instruct you to use an enema 1 4 hours before the procedure. Follow instructions from your health care provider about how to do the enema. Ask your health care provider about: ?Changing or stopping your regular medicines. This is especially important if you are taking diabetes medicines or blood thinners. ?Taking medicines such as aspirin and ibuprofen. These medicines can thin your blood. Do not take these medicines unless your health care provider tells you to take them. ?Taking wcqa-req-nkbyhxs medicines, vitamins, herbs, and supplements. What happens during the procedure? You will be asked to lie down on your left side on an exam table. You will bend your knees toward your chest. Gel will be put on a small probe that is about the width of a finger. The probe will be gently inserted into your rectum. You may have a feeling of fullness but should not feel pain. The probe will send signals to a computer that will create images. These will be displayed on a monitor that looks like a small television screen. The county program technician will slightly rotate the probe throughout the procedure. While rotating the probe, he or she will view and capture images of the prostate gland and the surrounding structures from different angles. Your health care provider may take a biopsy sample of prostate tissue during the procedure. The images captured from the ultrasound will help guide the needle that is used to remove a sample of tissue. The sample will be sent to a lab for testing. The probe will be removed. The procedure may vary among health care providers and hospitals. What can I expect after the procedure? It is up to you to get the results of your procedure. Ask your health care provider, or the department that is doing the procedure, when your results will be ready. Keep all follow-up visits. This is important. Summary A transrectal ultrasound is a procedure that uses sound waves to create images of the prostate gland and nearby tissues. The images show the size and shape of the prostate gland and nearby structures. Before the procedure, ask your health care provider about changing or stopping your regular medicines. This is especially important if you are taking diabetes medicines or blood thinners. This information is not intended to replace advice given to you by your health care provider. Make sure you discuss any questions you have with your health care provider. Document Revised: 02/25/2022 Document Reviewed: 12/08/2021 [employer] Patient Education 2023 [employer]. 08/14/2024 09:51:13 Cystoscopy Cystoscopy Cystoscopy is a procedure that is used to help diagnose and sometimes treat conditions that affect the lower urinary tract. The lower urinary tract includes the bladder and the urethra. The urethra is the tube that drains urine from the bladder. Cystoscopy is done using a thin, tube-shaped instrument with a light and camera at the end (cystoscope). The cystoscope may be hard or flexible, depending on the goal of the procedure. The cystoscope is inserted through the urethra, into the bladder. Cystoscopy may be recommended if you have: Urinary tract infections that keep coming back. Blood in the urine (hematuria). An inability to control when you urinate (urinary incontinence) or an overactive bladder. Unusual cells found in a urine sample. A blockage in the urethra, such as a urinary stone. Painful urination. An abnormality in the bladder found during an intravenous pyelogram (IVP) or CT scan. Cystoscopy may also be done to remove a sample of tissue to be examined under a microscope (biopsy). Tell a health care provider about: Any allergies you have. All medicines you are taking, including vitamins, herbs, eye drops, creams, and dayk-rfs-exkewil medicines. Any problems you or family members have had with anesthetic medicines. Any blood disorders you have. Any surgeries you have had. Any medical conditions you have. Whether you are or may be . What are the risks? Generally, this is a safe procedure. However, problems may occur, including: Infection. Bleeding. Allergic reactions to medicines. Damage to other structures or organs. What happens before the procedure? Medicines Ask your health care provider about: Changing or stopping your regular medicines. This is especially important if you are taking diabetes medicines or blood thinners. Taking medicines such as aspirin and ibuprofen. These medicines can thin your blood. Do not take these medicines unless your health care provider tells you to take them. Taking egho-tny-pxqcfzq medicines, vitamins, herbs, and supplements. Tests You may have an exam or testing, such as: X-rays of the bladder, urethra, or kidneys. CT scan of the abdomen or pelvis. Urine tests to check for signs of infection. General instructions Follow instructions from your health care provider about eating or drinking restrictions. Ask your health care provider what steps will be taken to help prevent infection. These steps may include: ?Washing skin with a germ-killing soap. ?Taking antibiotic medicine. Plan to have a responsible adult take you home from the hospital or clinic. What happens during the procedure? You will be given one or more of the following: ?A medicine to help you relax (sedative). ?A medicine to numb the area (local anesthetic). The area around the opening of your urethra will be cleaned. The cystoscope will be passed through your urethra into your bladder. Germ-free (sterile) fluid will flow through the cystoscope to fill your bladder. The fluid will stretch your bladder so that your health care provider can clearly examine your bladder jain. Your doctor will look at the urethra and bladder. Your doctor may take a biopsy or remove stones. The cystoscope will be removed, and your bladder will be emptied. The procedure may vary among health care providers and hospitals. What can I expect after the procedure? After the procedure, it is common to have: Some soreness or pain in your abdomen and urethra. Urinary symptoms. These include: ?Mild pain or burning when you urinate. Pain should stop within a few minutes after you urinate. This may last for up to 1 week. ?A small amount of blood in your urine for several days. ?Feeling like you need to urinate but producing only a small amount of urine. Follow these instructions at home: Medicines Take znkj-vow-xinmhoe and prescription medicines only as told by your health care provider. If you were prescribed an antibiotic medicine, take it as told by your health care provider. Do notstop taking the antibiotic even if you start to feel better. General instructions Return to your normal activities as told by your health care provider. Ask your health care provider what activities are safe for you. If you were given a sedative during the procedure, it can affect you for several hours. Do not drive or operate machinery until your health care provider says that it is safe. Watch for any blood in your urine. If the amount of blood in your urine increases, call your healthcare provider. Follow instructions from your health care provider about eating or drinking restrictions. If a tissue sample was removed for testing (biopsy) during your procedure, it is up to you to get your test results. Ask your health care provider, or the department that is doing the test, when yourresults will be ready. Drink enough fluid to keep your urine pale yellow. Keep all follow-up visits. This is important. Contact a health care provider if: You have pain that gets worse or does not get better with medicine, especially pain when you urinate. You have trouble urinating. You have more blood in your urine. Get help right away if: You have blood clots in your urine. You have abdominal pain. You have a fever or chills. You are unable to urinate. Summary Cystoscopy is a procedure that is used to help diagnose and sometimes treat conditions that affect the lower urinary tract. Cystoscopy is done using a thin, tube-shaped instrument with a light and camera at the end. After the procedure, it is common to have some soreness or pain in your abdomen and urethra. Watch for any blood in your urine. If the amount of blood in your urine increases, call your healthcare provider. If you were prescribed an antibiotic medicine, take it as told by your health care provider. Do notstop taking the antibiotic even if you start to feel better. This information is not intended to replace advice given to you by your health care provider. Make sure you discuss any questions you have with your health care provider. Document Revised: 02/25/2022 Document Reviewed: 01/24/2021 [employer] Patient Education 2023 [employer]. Follow Up Care 08/03/2024 14:15:55 With:ISHAAN ROMERO MD, RADHA Address: When: Unknown [facility] 02-17-2025 NotePatient Education Radiology Transrectal Ultrasound A transrectal ultrasound is a procedure that uses sound waves to create images of the prostate gland and nearby tissues. For this procedure, an ultrasound probe is placed in the rectum. The probe sends sound waves through the wall of the rectum into the prostate gland. The prostate is a walnut-sized gland that is located below the bladder and in front of the rectum. The images show the size and shape of the prostate gland and nearby structures. You may need this test if you have: ??? Trouble urinating. ??? Trouble getting your partner (infertility). ??? An abnormal result from a prostate screening exam. Tell a health care provider about: ??? Any allergies you have. ??? All medicines you are taking, including vitamins, herbs, eye drops, creams, and uxnm-jvs-goneweo medicines. ??? Any bleeding problems you have. ??? Any surgeries you have had. ??? Any medical conditions you have. ??? Any prostate infections you have had. What are the risks? Generally, this is a safe procedure. However, problems may occur, including: ??? Discomfort during the procedure. ??? Blood in your urine or sperm after the procedure. This may occur if a sample of tissue is takento look at under a microscope (biopsy) during the procedure. What happens before the procedure? Your health care provider may instruct you to use an enema 1?4 hours before the procedure. Follow instructions from your health care provider about how to do the enema. ??? Ask your health care provider about: ? Changing or stopping your regular medicines. This is especially important if you are taking diabetes medicines or blood thinners. ? Taking medicines such as aspirin and ibuprofen. These medicines can thin your blood. Do not take these medicines unless your health care provider tells you to take them. ? Taking yfwl-rdv-hnnwsxo medicines, vitamins, herbs, and supplements. What happens during the procedure? You will be asked to lie down on your left side on an exam table. ??? You will bend your knees toward your chest. ??? Gel will be put on a small probe that is about the width of a finger. The probe will be gently inserted into your rectum. You may have a feeling of fullness but should not feel pain. ??? The probe will send signals to a computer that will create images. These will be displayed on amonitor that looks like a small television screen. ??? The county program technician will slightly rotate the probe throughout the procedure. While rotating the probe, he or she will view and capture images of the prostate gland and the surrounding structures from different angles. ??? Your health care provider may take a biopsy sample of prostate tissue during the procedure. Theimages captured from the ultrasound will help guide the needle that is used to remove a sample of tissue. The sample will be sent to a lab for testing. ??? The probe will be removed. The procedure may vary among health care providers and hospitals. What can I expect after the procedure? It is up to you to get the results of your procedure. Ask your health care provider, or the department that is doing the procedure, when your results will be ready. ??? Keep all follow-up visits. This is important. Summary ??? A transrectal ultrasound is a procedure that uses sound waves to create images of the prostate gland and nearby tissues. ??? The images show the size and shape of the prostate gland and nearby structures. ??? Before the procedure, ask your health care provider about changing or stopping your regular medicines. This is especially important if you are taking diabetes medicines or blood thinners. This information is not intended to replace advice given to you by your health care provider. Make sure you discuss any questions you have with your health care provider. Document Revised: 02/25/2022 Document Reviewed: 12/08/2021 [employer] Patient Education ? 2023 [employer]. Urology Cystoscopy Cystoscopy is a procedure that is used to help diagnose and sometimes treat conditions that affect the lower urinary tract. The lower urinary tract includes the bladder and the urethra. The urethra is the tube that drains urine from the bladder. Cystoscopy is done using a thin, tube-shaped instrument with a light and camera at the end (cystoscope). The cystoscope may be hard or flexible, depending on the goal of the procedure. The cystoscope is inserted through the urethra, into the bladder. Cystoscopy may be recommended if you have: ??? Urinary tract infections that keep coming back. ??? Blood in the urine (hematuria). ??? An inability to control when you urinate (urinary incontinence) or an overactive bladder. ??? Unusual cells found in a urine sample. ??? A blockage in the urethra, such as a urinary stone. ??? Painful urination. ??? An abnormality in the bladder found during an intravenous pyelogram (IVP) o (more content not included)...[facility]* Diagnosis Onset Date Resolution Status Admit Date Acute prostatitis with hematuria acute August 02 1:32pm Benign prostatic hyperplasia with lower urinary tract symptoms acute August 02 1:32pm Hematuria acute August 02, 2024 1:32pm Hypertension acute July 1:32pm Benign prostatic hyperplasia with lower urinary tract symptoms acute September 07, 2024 9:54am Hematuria acute September 07 9:54am Hypertension acute September 07, 2024 9:54am [facility] Work Phone: [phone]) 898-205602-04-2025 Hospital Discharge instructions Patient Education 07/31/2024 22:04:39 Urinary Tract Infection, Adult, Qcab-wv-Vklv Urinary Tract Infection, Adult A urinary tract infection (UTI) is an infection of any part of the urinary tract. The urinary tractincludes: The kidneys. The ureters. The bladder. The urethra. These organs make, store, and get rid of pee (urine) in the body. What are the causes? This infection is caused by germs (bacteria) in your genital area. These germs grow and cause swelling (inflammation) of your urinary tract. What increases the risk? The following factors may make you more likely to develop this condition: Using a small, thin tube (catheter) to drain pee. Not being able to control when you pee or poop (incontinence). Being female. If you are female, these things can increase the risk: ?Using these methods to prevent : ?A medicine that kills sperm (spermicide). ?A device that blocks sperm (diaphragm). ?Having low levels of a female hormone (estrogen). ?Being . You are more likely to develop this condition if: You have genes that add to your risk. You are sexually active. You take antibiotic medicines. You have trouble peeing because of: ?A prostate that is bigger than normal, if you are male. ?A blockage in the part of your body that drains pee from the bladder. ?A kidney stone. ?A nerve condition that affects your bladder. ?Not getting enough to drink. ?Not peeing often enough. You have other conditions, such as: ?Diabetes. ?A weak disease-fighting system (immune system). ?Sickle cell disease. ?Gout. ?Injury of the spine. What are the signs or symptoms? Symptoms of this condition include: Needing to pee right away. Peeing small amounts often. Pain or burning when peeing. Blood in the pee. Pee that smells bad or not like normal. Trouble peeing. Pee that is cloudy. Fluid coming from the vagina, if you are female. Pain in the belly or lower back. Other symptoms include: Vomiting. Not feeling hungry. Feeling mixed up (confused). This may be the first symptom in older adults. Being tired and grouchy (irritable). A fever. Watery poop (diarrhea). How is this treated? Taking antibiotic medicine. Taking other medicines. Drinking enough water. In some cases, you may need to see a specialist. Follow these instructions at home: Medicines Take bggw-qxy-ontrghj and prescription medicines only as told by your doctor. If you were prescribed an antibiotic medicine, take it as told by your doctor. Do not stop taking it even if you start to feel better. General instructions Make sure you: ?Pee until your bladder is empty. ?Do not hold pee for a long time. ?Empty your bladder after sex. ?Wipe from front to back after peeing or pooping if you are a female. Use each tissue one time whenyou wipe. Drink enough fluid to keep your pee pale yellow. Keep all follow-up visits. Contact a doctor if: You do not get better after 1 2 days. Your symptoms go away and then come back. Get help right away if: You have very bad back pain. You have very bad pain in your lower belly. You have a fever. You have chills. You feeling like you will vomit or you vomit. Summary A urinary tract infection (UTI) is an infection of any part of the urinary tract. This condition is caused by germs in your genital area. There are many risk factors for a UTI. Treatment includes antibiotic medicines. Drink enough fluid to keep your pee pale yellow. This information is not intended to replace advice given to you by your health care provider. Make sure you discuss any questions you have with your health care provider. Document Revised: 01/19/2021 Document Reviewed: 01/24/2021 Central Desktop Patient Education 2023 [employer]. Follow Up Care 07/31/2024 20:57:47 With:Minna Sepulveda Address:Unknown When:08/03/2024 21:54:32 Comments:Take the antibiotics as prescribed you have completed the course. Use the Pyridium every 8 hours asneeded for pain with urination. Please follow-up with your primary care doctor and urology for further evaluation management. Please return to ED for any new or worsening symptoms. With:CLINTON FUENTES Address: [address] [place], [place] [address] [address]- Business (1) When:Within 3 Day(s) [facility] 02-03-2025 NoteED Patient Education Note Obstetrics and Gynecology Urinary Tract Infection, Adult A urinary tract infection (UTI) is an infection of any part of the urinary tract. The urinary tractincludes: ??? The kidneys. ??? The ureters. ??? The bladder. ??? The urethra. These organs make, store, and get rid of pee (urine) in the body. What are the causes? This infection is caused by germs (bacteria) in your genital area. These germs grow and cause swelling (inflammation) of your urinary tract. What increases the risk? The following factors may make you more likely to develop this condition: ??? Using a small, thin tube (catheter) to drain pee. ??? Not being able to control when you pee or poop (incontinence). ??? Being female. If you are female, these things can increase the risk: ? Using these methods to prevent : ? A medicine that kills sperm (spermicide). ? A device that blocks sperm (diaphragm). ? Having low levels of a female hormone (estrogen). ? Being . You are more likely to develop this condition if: ??? You have genes that add to your risk. ??? You are sexually active. ??? You take antibiotic medicines. ??? You have trouble peeing because of: ? A prostate that is bigger than normal, if you are male. ? A blockage in the part of your body that drains pee from the bladder. ? A kidney stone. ? A nerve condition that affects your bladder. ? Not getting enough to drink. ? Not peeing often enough. ??? You have other conditions, such as: ? Diabetes. ? A weak disease-fighting system (immune system). ? Sickle cell disease. ? Gout. ? Injury of the spine. What are the signs or symptoms? Symptoms of this condition include: ??? Needing to pee right away. ??? Peeing small amounts often. ??? Pain or burning when peeing. ??? Blood in the pee. ??? Pee that smells bad or not like normal. ??? Trouble peeing. ??? Pee that is cloudy. ??? Fluid coming from the vagina, if you are female. ??? Pain in the belly or lower back. Other symptoms include: ??? Vomiting. ??? Not feeling hungry. ??? Feeling mixed up (confused). This may be the first symptom in older adults. ??? Being tired and grouchy (irritable). ??? A fever. ??? Watery poop (diarrhea). How is this treated? Taking antibiotic medicine. ??? Taking other medicines. ??? Drinking enough water. In some cases, you may need to see a specialist. Follow these instructions at home: Medicines ??? Take jmji-xpv-xwdxgjj and prescription medicines only as told by your doctor. ??? If you were prescribed an antibiotic medicine, take it as told by your doctor. Do not stop taking it even if you start to feel better. General instructions ??? Make sure you: ? Pee until your bladder is empty. ? Do not hold pee for a long time. ? Empty your bladder after sex. ? Wipe from front to back after peeing or pooping if you are a female. Use each tissue one time when you wipe. ??? Drink enough fluid to keep your pee pale yellow. ??? Keep all follow-up visits. Contact a doctor if: ??? You do not get better after 1?2 days. ??? Your symptoms go away and then come back. Get help right away if: ??? You have very bad back pain. ??? You have very bad pain in your lower belly. ??? You have a fever. ??? You have chills. ??? You feeling like you will vomit or you vomit. Summary ??? A urinary tract infection (UTI) is an infection of any part of the urinary tract. ??? This condition is caused by germs in your genital area. ??? There are many risk factors for a UTI. ??? Treatment includes antibiotic medicines. ??? Drink enough fluid to keep your pee pale yellow. This information is not intended to replace advice given to you by your health care provider. Make sure you discuss any questions you have with your health care provider. Document Revised: 01/19/2021 Document Reviewed: 01/24/2021 Central Desktop Patient Education ? 2023 [employer].[facility] 07-31-2024 Evaluation + Plan noteExtracted from: Title:ED Note Author:Lino Dietrich DO Date :07/31/24 Acute cystitis with hematuri a (N30.01: Acute cystitis with hematuria) Orders: ciprofloxacin, 500 mg = 1 tab(s), Tab, Oral, Once, Stop date 07/31/24 21:52:00 EST, STAT, Start date 07/31/24 21:52:00 EST, 07/31/24 21:52:00 EST ciprofloxacin, 500 mg = 1 tab(s), Oral, BID, X 5 day(s), # 10 tab(s), Refills(s) 0, Pharmacy: [facility], 177, cm, 07/31/24 21:09:00 EST, Height/Length Dosing, 76.4, kg, 07/31/24 21:09:00 EST, Weight Dosing phenazopyridine, 200 mg = 2 tab(s), Tab, Oral, Once, Stop date 07/31/24 21:52:00 EST, STAT, Start date 07/31/24 21:52:00 EST, 07/31/24 21:52:00 EST phenazopyridine, 200 mg = 1 tab(s), Oral, TID, X 3 day(s), # 9 tab(s), Refills(s) 0, Pharmacy: [facility], 177, cm, 07/31/24 21:09:00 EST, Height/Length Dosing, 76.4, kg, 07/31/24 21:09:00 EST, Weight Dosing UA with Cult Rflx Urine Culture Diagnostic Tests Pending * Urine Culture 07/31/24 [facility] 11-16-2023 Evaluation note* Encounter Date Diagnosis Assessment Notes Treatment Notes Treatment Clinical Notes Apr, COVID-19 (ICD-10 - U07.1) Instructed to use Robitussin or Mucinex for cough, saline or Flonase NS for congestion, Tylenol for pain and fever. Self isolate at home. - Cannot work - avoid contact with others - avoid pets - wipe counters, door knobs if touched - if can't avoid leaving home, must wear mask to protect others - need to stay isolated for 10 days from onset of symptoms - to discontinue isolation must be 5 days AND must be without fever for 24 hours AND symptoms must be improving. Always wear a mask in public places for complete 10 days [facility] Other 09-01-2023 Evaluation note* Encounter Date Diagnosis Assessment Notes Treatment Notes Treatment Clinical Notes Feb, Medicare annual wellness visit, subsequent (ICD-10 - Z00.00) Personalized health advice was given to the beneficiary including a written plan for screenings discussed and provided. Advanced care planning reviewed and/or information given as requested. Additional counseling was provided here today in regards to, [ ]. The above visit was performed by [ ], under direct supervision of [ ]. Document reviewed and amended by provider signed below. Feb, Primary hypertension (ICD-10 - I10) This patient is instructed to consume a healthy, low-fat, low-salt diet. They are also encouraged to continue exercise to achieve/maintain a normal BMI. Patient is instructed on home BP measurements: - rest for 5 minutes w/o talking- positioned w/ feet on floor and arm supported- average best 2/3 readings w/ goal < 135/85 Instructed to stop in for BP check in couple weeks Feb, Lumbar spondylolysis (ICD-10 - M43.06) The patient is instructed to avoid bending, twisting or lifting. They are to use intermittent heat and ice as needed. They may schedule a massage or gentle manipulation. They may safely use Tylenol as needed. Feb, Benign prostatic hyperplasia with lower urinary tract symptoms (ICD-10 - N40.1) Symptoms tolerable Drinks in evening, which contributes Yearly FERMIN and PSA Feb, Nocturia (ICD-10 - R35.1) [facility] Other 08-20-2023 Hospital Discharge instructions Patient Education 02/14/2023 12:52:54 VIS, DTaP (Diphtheria, Tetanus, Pertussis) Vaccine - [facility] (01/31/2021) DTaP (Diphtheria, Tetanus, Pertussis) Vaccine: What You Need to Know 1. Why get vaccinated? DTaP vaccine can prevent diphtheria, tetanus,and pertussis. Diphtheria and pertussis spread from person to person. Tetanus enters the body through cuts or wounds. DIPHTHERIA (D) can lead to difficulty breathing, heart failure, paralysis, or . TETANUS (T) causes painful stiffening of the muscles. Tetanus can lead to serious health problems, including being unable to open the mouth, having trouble swallowing and breathing, or . PERTUSSIS (aP), also known as whooping cough, can cause uncontrollable, violent coughing that makes it hard to breathe, eat, or drink. Pertussis can be extremely serious especially in babies and young children, causing pneumonia, convulsions, brain damage, or . In teens and adults, it can cause weight loss, loss of bladder control, passing out, and rib fractures from severe coughing. 2. DTaP vaccine DTaP is only for children younger than 7 years old. Different vaccines against tetanus, diphtheria,and pertussis (Tdap and Td) are available for older children, adolescents, and adults. It is recommended that children receive 5 doses of DTaP, usually at the following ages: 2 months 4 months 6 months 15 18 months 4 6 years DTaP may be given as a stand-alone vaccine, or as part of a combination vaccine (a type of vaccine that combines more than one vaccine together into one shot). DTaP may be given at the same time as other vaccines. 3. Talk with your health care provider Tell your vaccination provider if the person getting the vaccine: Has had an allergic reaction after a previous dose of any vaccine that protects against tetanus, diphtheria, or pertussis, or has any severe, life-threatening allergies Has had a coma, decreased level of consciousness, or prolonged seizures within 7 days after a previous dose of any pertussis vaccine (DTP or DTaP) Has seizures or another nervous system problem Has ever had Guillain-Napier Syndrome (also called GBS ) Has had severe pain or swelling after a previous dose of any vaccine that protects against tetanus or diphtheria In some cases, your child's health care provider may decide to postpone DTaP vaccination until a future visit. Children with minor illnesses, such as a cold, may be vaccinated. Children who are moderately or severely ill should usually wait until they recover before getting DTaP vaccine. Your child's health care provider can give you more information. 4. Risks of a vaccine reaction Soreness or swelling where the shot was given, fever, fussiness, feeling tired, loss of appetite, and vomiting sometimes happen after DTaP vaccination. More serious reactions, such as seizures, non-stop crying for 3 hours or more, or high fever (over 105 F) after DTaP vaccination happen much less often. Rarely, vaccination is followed by swelling ofthe entire arm or leg, especially in older children when they receive their fourth or fifth dose. As with any medicine, there is a very remote chance of a vaccine causing a severe allergic reaction, other serious injury, or . 5. What if there is a serious problem? An allergic reaction could occur after the vaccinated person leaves the clinic. If you see signs ofa severe allergic reaction (hives, swelling of the face and throat, difficulty breathing, a fast heartbeat, dizziness, or weakness), call and get the person to the nearest hospital. For other signs that concern you, call your health care provider. Adverse reactions should be reported to the Vaccine Adverse Event Reporting System (VAERS). Your health care provider will usually file this report, or you can do it yourself. Visit the VAERS websiteat www.vaers.hhs.gov or call . VAERS is only for reporting reactions, and VAERS staffmembers do not give medical advice. 6. The National Vaccine Injury Compensation Program The National Vaccine Injury Compensation Program (VICP) is a federal program that was created to compensate people who may have been injured by certain vaccines. Claims regarding alleged injury or due to vaccination have a time limit for filing, which may be as short as two years. Visit the VICP website at www.hrsa.gov/vaccinecompensation or call to learn about the program and about filing a claim. 7. How can I learn more? Ask your health care provider. Call your local or state health department. Visit the website of the Food and Drug Administration (FDA) for vaccine package inserts and additional information at www.fda.gov/hztcphkx-mcocv-aondvadwj/vaccines. Contact the Centers for Disease Control and Prevention (CDC): ?Call (4-036-KFB-INFO) or ?Visit CDC's website at www.cdc.gov/vaccines. Source: CDC Vaccine Information Statement DTaP (Diphtheria, Tetanus, Pertussis) Vaccine (01/31/2021) This same material is available at www.cdc.gov for no charge. This information is not intended to replace advice given to you by your health care provider. Make sure you discuss any questions you have with your health care provider. Document Revised: 05/13/2022 Document Reviewed: 03/06/2022 [employer] Patient Education 2022 [employer] 02/14/2023 12:52:54 Thumb Fracture Thumb Fracture A thumb fracture is a break in one of the two bones in your thumb. The bone that goes from the tip of your thumb to the first joint in your thumb is called the distal phalanx. The bone that goes fromthe first joint to the joint at the base of your thumb is called the proximal phalanx. Fractures that happen at the joints of your thumb are harder to treat. A broken thumb is more serious than a break in one of your other fingers because you need your thumb for grasping. Thumb fractures are also more likely to lead to pain and stiffness years after healing (arthritis). What are the causes? A thumb fracture may be caused by: A hard, direct hit to your thumb. Your thumb being pulled out of place. What increases the risk? You may be more likely to break your thumb if you: Participate in sports such as wrestling, hockey, football, or skiing. Have a condition that causes your bones to become thin and brittle (osteoporosis). What are the signs or symptoms? Symptoms may include: Sudden severe pain. Swelling. Bruising. Not being able to move the thumb. An abnormal shape of the thumb (deformity). Numbness or coldness. A red, black, or blue thumbnail. How is this diagnosed? This condition may be diagnosed based on: Your symptoms and medical history. A physical exam. Imaging studies such as X-ray, ultrasound, or MRI. How is this treated? Treatment for this condition depends on the severity of the fracture. At first, you may need to wear a padded splint until you can get a cast or have surgery. The paddedsplint protects your thumb and keeps it from moving (immobilization). If the broken pieces of your bone line up with each other, you will need to wear a splint or a castfor up to 4 6 weeks. If your fracture is severe, your health care provider will need to align the bone pieces manually or surgically. Your health care provider may: ?Move the bones back into position without surgery (closed reduction). ?Do surgery to align the fracture and put in metal screws, plates, or wires to hold the bone piecesin place (open reduction and internal fixation, ORIF). ?Do surgery to align the fracture and put in pins that are attached to a stabilizing bar outside your skin to hold the bone pieces in place (external fixation). In all cases, treatment may involve: ?Wearing a splint or cast for up to 6 weeks. ?Follow-up visits with your health care provider and X-rays to make sure you are healing correctly. ?Doing exercises to restore full movement and strength to your thumb (physical therapy) after your cast is removed. Follow these instructions at home: If you have a splint: Wear the splint as told by your health care provider. Remove it only as told by your health care provider. Do not put pressure on any part of the splint until it is fully hardened. This may take several hours. Check the skin around the splint every day. Tell your health care provider about any concerns. Loosen the splint if your thumb or fingers tingle, become numb, or turn cold and blue. Keep the splint clean and dry. If you have a cast: Do not put pressure on any part of the cast until it is fully hardened. This may take several hours. Do not stick anything inside the cast to scratch your skin. Doing that increases your risk of infection. Check the skin around the cast every day. Tell your health care provider about any concerns. You may put lotion on dry skin around the edges of the cast. Do not put lotion on the skin underneath the cast. Keep the cast clean and dry. Bathing Do not take baths, swim, or use a hot tub until your health care provider approves. Ask your healthcare provider if you may take showers. You may only be allowed to take sponge baths. If the splint or cast is not waterproof: ?Do not let it get wet. ?Cover it with a watertight covering when you take a bath or shower. Managing pain, stiffness, and swelling If directed, put ice on your thumb. To do this: ?If you have a removable splint, remove it as told by your health care provider. ? Put ice in a plastic bag. ?Place a towel between your skin and the bag, or between your cast and the bag. ?Leave the ice on for 20 minutes, 2 3 times a day. ?Remove the ice if your skin turns bright red. This is very important. If you cannot feel pain, heat, or cold, you have a greater risk of damage to the area. Move your thumb and fingers often to reduce stiffness and swelling. Raise (elevate) your hand above the level of your heart while you are sitting or lying down. Activity Return to your normal activities as told by your health care provider. Ask your health care provider what activities are safe for you. After your cast is removed, do physical therapy exercises as directed. Your health care provider may recommend that you: ?Move your thumb in circles. ?Touch your thumb to your pinky finger. ?Do these exercises several times a day. Ask your health care provider if you may use a hand diesel roller operator to strengthen your muscles. If your thumb feels stiff while you are exercising it, try doing the exercises while soaking your hand in warm water. General instructions Take rvoe-cyk-mfipuyl and prescription medicines only as told by your health care provider. Ask your health care provider when it is safe to drive if you have a splint or cast on your thumb. Do not use any products that contain nicotine or tobacco. These products include cigarettes, chewing tobacco, and vaping devices, such as e-cigarettes. These can delay bone healing. If you need help quitting, ask your health care provider. Keep all follow-up visits. This is important. Contact a health care provider if: You have pain that gets worse. You have a fever. You have a bad smell coming from your cast or splint. Get help right away if: Your thumb feels numb, tingles, turns cold, or turns blue. You have redness or swelling that gets worse. You have severe pain. Summary A thumb fracture is a break in one of the two bones in your thumb. Treatment involves wearing a splint or cast to keep the thumb from moving until it heals. Sometimessurgery is needed. Make sure you understand and follow all of your health care provider's home care instructions. This information is not intended to replace advice given to you by your health care provider. Make sure you discuss any questions you have with your health care provider. Document Revised: 04/22/2021 Document Reviewed: 04/22/2021 [employer] Desktop Patient Education 2022 [employer]. 02/14/2023 12:52:54 Wound Care, Adult Wound Care, Adult Taking care of your wound properly can help to prevent pain, infection, and scarring. It can also help your wound heal more quickly. Follow instructions from your health care provider about how to care for your wound. Supplies needed: Soap and water. Wound cleanser, saline, or germ-free (sterile) water. Gauze. If needed, a clean bandage (dressing) or other type of wound dressing material to cover or place inthe wound. Follow your health care provider's instructions about what dressing supplies to use. Cream or topical ointment to apply to the wound, if told by your health care provider. How to care for your wound Cleaning the wound Ask your health care provider how to clean the wound. This may include: Using mild soap and water, a wound cleanser, saline, or sterile water. Using a clean gauze to pat the wound dry after cleaning it. Do not rub or scrub the wound. Dressing care Wash your hands with soap and water for at least 20 seconds before and after you change the dressing. If soap and water are not available, use hand telecommunication lines repairer. Change your dressing as told by your health care provider. This may include: ?Cleaning or rinsing out (irrigating) the wound. ?Application of cream or topical ointment, if told by your health care provider. ?Placing a dressing over the wound or in the wound (packing). ?Covering the wound with an outer dressing. Leave stitches (sutures), leonor, skin glue, or adhesive strips in place. These skin closures may need to stay in place for 2 weeks or longer. If adhesive strip edges start to loosen and curl up, you may trim the loose edges. Do not remove adhesive strips completely unless your health care provider tells you to do that. Ask your health care provider when you can leave the wound uncovered. Checking for infection Check your wound area every day for signs of infection. Check for: More redness, swelling, or pain. Fluid or blood. Warmth. Pus or a bad smell. Follow these instructions at home Medicines If you were prescribed an antibiotic medicine, cream, or ointment, take or apply it as told by yourhealth care provider. Do not stop using the antibiotic even if your condition improves. If you were prescribed pain medicine, take it 30 minutes before you do any wound care or as told byyour health care provider. Take ctdq-eaa-ttnjkia and prescription medicines only as told by your health care provider. Eating and drinking Eat a diet that includes protein, vitamin A, vitamin C, and other nutrient-rich foods to help the wound heal. ?Foods rich in protein include meat, fish, eggs, dairy, beans, and nuts. ?Foods rich in vitamin A include carrots and dark green, leafy vegetables. ?Foods rich in vitamin C include citrus fruits, tomatoes, broccoli, and peppers. Drink enough fluid to keep your urine pale yellow. General instructions Do not take baths, swim, or use a hot tub until your health care provider approves. Ask your healthcare provider if you may take showers. You may only be allowed to take sponge baths. Do not scratch or pick at the wound. Keep it covered as told by your health care provider. Return to your normal activities as told by your health care provider. Ask your health care provider what activities are safe for you. Protect your wound from the sun when you are outside for the first 6 months, or for as long as toldby your health care provider. Cover up the scar area or apply sunscreen that has an SPF of at least30. Do not use any products that contain nicotine or tobacco. These products include cigarettes, chewing tobacco, and vaping devices, such as e-cigarettes. If you need help quitting, ask your health careprovider. Keep all follow-up visits. This is important. Contact a health care provider if: You received a tetanus shot and you have swelling, severe pain, redness, or bleeding at the injection site. Your pain is not controlled with medicine. You have any of these signs of infection: ?More redness, swelling, or pain around the wound. ?Fluid or blood coming from the wound. ?Warmth coming from the wound. ?A fever or chills. You are nauseous or you vomit. You are dizzy. You have a new rash or hardness around the wound. Get help right away if: You have a red streak of skin near the area around your wound. Pus or a bad smell coming from the wound. Your wound has been closed with leonor, sutures, skin glue, or adhesive strips and it begins to open up and separate. Your wound is bleeding, and the bleeding does not stop with gentle pressure. These symptoms may represent a serious problem that is an emergency. Do not wait to see if the symptoms will go away. Get medical help right away. Call your local emergency services (911 in the [place] Do not drive yourself to the hospital. Summary Always wash your hands with soap and water for at least 20 seconds before and after changing your dressing. Change your dressing as told by your health care provider. To help with healing, eat foods that are rich in protein, vitamin A, vitamin C, and other nutrients. Check your wound every day for signs of infection. Contact your health care provider if you think that your wound is infected. This information is not intended to replace advice given to you by your health care provider. Make sure you discuss any questions you have with your health care provider. Document Revised: 10/21/2021 Document Reviewed: 10/21/2021 Central Desktop Patient Education 2022 [employer]. 02/14/2023 12:52:54 Pain Medicine Instructions, Vfdq-jr-Zcpm Pain Medicine Instructions You may need pain medicine after an injury or illness. Two common types of pain medicine are: Non-opioid pain medicine. This includes NSAIDs. Opioid pain medicine. These may be called opioids. Pain medicine may not make all of your pain go away. It should make you comfortable enough to move,breathe, and do normal activities. How can pain medicines affect me? Pain medicines can cause side effects such as: Vomiting or feeling like you may vomit. Belly pain. Opioids can cause other side effects, such as: Trouble pooping (constipation). Feeling very sleepy. Confusion. Trouble breathing. Addiction to opioids. This means that you will take the medicine even though it hurts your health. Taking opioids for longer than 3 days raises your risk of these side effects. Taking opioids for a long time can affect how well you can do daily tasks. It also puts you at riskfor: Car crashes. Depression. Suicide. Heart attack. If you do not take pain medicines correctly, you may be at risk for: Liver problems. Kidney problems. Taking too much of the medicine (overdose). This can lead to . What actions can I take to lower my risk of problems? Know your treatment plan Talk about your treatment plan with your doctor. Both you and your doctor should agree on how you should be treated. Talk about the goals of your treatment, including: ?How much pain you might expect to have. ?How you will manage the pain. Ask your doctor if you can see other doctors who can treat your pain without using medicine. This can include physical therapy and counseling. Talk about the risks and benefits of taking these medicines for your condition. Tell your doctor about the amount of medicines you take and about any use of drugs or alcohol. Get your pain medicine prescriptions from only one doctor. Keep all follow-up visits. Take your medicine as told Take pain medicine exactly as told by your doctor. Take it only when you need it. ?If your pain is not too bad, you may take less medicine if your doctor allows. ?If you have no pain, do not take the medicine unless your doctor tells you to take it. ?If your pain is very bad, do not take more medicine than your doctor tells you to take. Call your doctor to know what to do. If your pain medicine has acetaminophen in it, do not take any other acetaminophen while you are taking this medicine. Too much can damage the liver. Write down the times when you take your pain medicine. Look at the times before you take your next dose. Take other acko-tez-pmmlzhs or prescription medicines only as told by your doctor. Avoid certain activities While you are taking prescription pain medicine, and for 8 hours after your last dose: Do not drive. Do not use machinery. Do not use power tools. Do not sign legal documents. Do not drink alcohol. Do not take sleeping pills. Do not take care of children by yourself. Do not do any activities that involve climbing or being in high places. Do not go to a [place], river, ocean, spa, or swimming pool unless an adult is nearby who can monitor and help you. Keep pets and people safe Store your medicine as told by your doctor. Keep it where children and pets cannot reach it. Do not share your pain medicine with anyone. Do not save unused pills. If you have unused pills, you can: ?Bring them to a take-back program. ?Bring them to a pharmacy that takes back unused pills. ?Throw them in the trash. Check the medicine label or package insert to see if it is safe to throw it out. If it is safe, take the medicine out of the container. Mix it with something that makes it unusable, such as pet waste. Then put the medicine in the trash. ?Flush them down the toilet only if this is safe to do. To find out: ?Check the label or package insert of your medicine. ?Read information given by the Food and Drug Administration website: fda.gov Treat or prevent constipation You may need to take these actions to prevent or treat constipation: Drink enough fluid to keep your pee (urine) pale yellow. Take tcvj-hww-aeuswiw or prescription medicines. Eat foods that are high in fiber. These include beans, whole grains, and fresh fruits and vegetables. Limit foods that are high in fat and sugar. These include fried or sweet foods. Contact a doctor if: Your medicine is not helping with your pain. You have a rash. You feel sick to your stomach. You throw up. You feel depressed. Get help right away if: You have trouble breathing. This means: ?Breathing that is slower than normal. ?Breathing that is more shallow than normal. You are confused. You are sleeping a lot, or you have trouble staying awake. Your skin or lips turn pale or bluish in color. You tongue swells. You have thoughts of harming yourself or harming others. These symptoms may be an emergency. Get help right away. Call your local emergency services (204 int [place] Do not wait to see if the symptoms will go away. Do not drive yourself to the hospital. Get help right away if you feel like you may hurt yourself or others, or have thoughts about takingyour own life. Go to your nearest emergency room or: Call your local emergency services (728 in the [place] Call the National Suicide Prevention Lifeline at or 427 in the [place] This is open 24 hours a day. Text the Crisis Text Line at 788701. Summary Pain medicine can help lower your pain. It may also cause side effects. Take your pain medicine exactly as told by your doctor. Talk with your doctor about other ways to manage your pain. Ask what activities you should avoid while taking pain medicine. This information is not intended to replace advice given to you by your health care provider. Make sure you discuss any questions you have with your health care provider. Document Revised: 01/07/2022 Document Reviewed: 10/22/2021 Central Desktop Patient Education 2022 [employer]. 02/14/2023 12:52:54 Nail Bed Injury, Qmsf-pn-Dnkl Nail Bed Injury The nail bed is the soft tissue under a fingernail or toenail. The nail bed can be injured in different ways. You may: Get bruising or bleeding under the nail. Get cuts in the nail or nail bed. Lose all or part of the nail. After your nail is hurt or torn off, it can take many months to grow again. The nail may not grow back normally. What are the causes? This condition is usually caused by crushing, pinching, cutting, or tearing injuries of the fingertip or toe. These injuries might happen when a finger or toe gets: Caught in a door. Hit by a hammer. Damaged in accidents while you are using power tools or machinery. What are the signs or symptoms? Symptoms vary depending on the type of injury. Symptoms may include: Pain in the injured area. Bleeding. Swelling. A change in color of the area. Collection of blood under the nail (hematoma). Damage to the nail, such as: ?A deformed or split nail. ?A loose nail that is not stuck to the nail bed. ?Loss of all or part of the nail. How is this treated? Treatment may depend on the type of injury. Some injuries may not need any treatment other than keeping the area clean and free of infection. Treatment may include: Draining blood from under the nail. This can be done by making a small hole in the nail. Removing all or part of your nail. This might be done in order to stitch (suture) any cut in the nail bed. Stitching a torn-off nail back in place. Putting bandages (dressings) or splints on the area. Taking medicines, such as: ?Antibiotic medicine to help prevent infection. ?Pain medicine. Having a tetanus shot. This may be needed if you have not had a tetanus shot in the last 10 years. Follow these instructions at home: Managing pain, stiffness, and swelling Raise (elevate) the injured area above the level of your heart while you are sitting or lying down. Keep your injury protected with bandages or splints as told by your doctor. For an injured toenail: ?Try not to walk on your injured leg. ?Wear an open-toed shoe when you walk. ?Try not to let your leg hang down (dangle) when you are sitting or lying down. Wound care Follow any wound care instructions given by your doctor. Make sure you: Keep the injured area clean. Keep any bandages clean and dry. Wash your hands with soap and water for at least 20 seconds before and after you change any bandage. If you cannot use soap and water, use hand telecommunication lines repairer. Change or take off the bandage only as told by your doctor. Leave any stitches in place. These may need to stay in place for 2 weeks. Check the injured area every day for signs of infection. Check for: ?More redness, swelling, or pain. ?More fluid or blood. ?Warmth. ?Pus or a bad smell. General instructions Take omtg-qmf-vrqfpgg and prescription medicines only as told by your doctor. If you were prescribed an antibiotic medicine, use it as told by your doctor. Do not stop using theantibiotic even if you start to feel better. Ask your doctor if the medicine prescribed to you requires you to avoid driving or using machinery. Keep all follow-up visits as told by your doctor. This is important. Contact a doctor if: Medicine does not help your pain. You have any of these problems in the injured area: ?More redness. ?More pain or swelling. ?More fluid or blood coming from the area. ?The area feels warm to the touch. ?Pus or a bad smell coming from the area. You have a fever and your symptoms get worse. Get help right away if: You lose feeling (have numbness) in your finger or toe. Your finger or toe turns blue. Summary The nail bed is the soft tissue under a fingernail or toenail. Sometimes, after a nail or nail bed is injured, the nail may not grow back normally. Raise (elevate) the injured area above the level of your heart while you are sitting or lying down. Keep any bandages clean and dry. Change or take them off only as told by your doctor. Take vzcz-lzk-hlilqyb and prescription medicines only as told by your doctor. This information is not intended to replace advice given to you by your health care provider. Make sure you discuss any questions you have with your health care provider. Document Revised: 03/29/2020 Document Reviewed: 03/29/2020 Central Desktop Patient Education 2022 [employer]. 02/14/2023 12:52:54 Nail Avulsion Nail Avulsion Nail avulsion is when a nail tears away from the nail bed due to an accident or injury. Nail avulsion can be painful. Your finger or toe may bleed a lot, and you may have some pain, redness, throbbing, and swelling while it heals. Your nail will grow back within several months. Once it grows back, it might not look the same as the old nail. This may happen even after taking good care of it. Follow these instructions at home: Wound care Follow instructions from your health care provider about how to take care of your wound. Make sure you: ?Wash your hands with soap and water before and after you change your bandage (dressing). If soap and water are not available, use hand telecommunication lines repairer. ?Change your dressing as told by your health care provider. ?Leave stitches (sutures), skin glue, or adhesive strips in place, if present. These skin closures may need to stay in place for 2 weeks or longer. If adhesive strip edges start to loosen and curl up, you may trim the loose edges. Do not remove adhesive strips completely unless your health care provider tells you to do that. Check your wound every day for signs of infection. Check for: ?Redness, swelling, or pain. ?Fluid or blood. ?Warmth. ?Pus or a bad smell. Do not take baths, swim, or use a hot tub until your health care provider approves. Ask your healthcare provider if you may take showers. You may only be allowed to take sponge baths. If you notice bleeding, press gently on the nail bed with a gauze pad. Do this for 15 minutes. Keep the wound dry for 48 hours. After 48 hours have passed, lightly wash the finger or toe in warm, soapy water 2 3 times a day. This helps to reduce pain and swelling. It also prevents infection. Medicine Take fsem-dlr-ppfbrfr and prescription medicines only as told by your health care provider. Do not take aspirin or products containing aspirin unless directed by your health care provider. These products can increase bleeding. If you were prescribed an antibiotic medicine, take it or apply it as told by your health care provider. Do not stop taking or using the antibiotic even if you start to feel better. General instructions Keep the injured hand or foot raised above the level of your heart as much as possible in the first48 hours after the injury. This helps to reduce pain and swelling. Move the toe or finger often to avoid stiffness. Do not use any products that contain nicotine or tobacco, such as cigarettes, e- cigarettes, and chewing tobacco. These can delay healing. If you need help quitting, ask your health care provider. Contact a health care provider if: You have increased redness, swelling, or pain around your wound. You have fluid or blood coming from your wound. You have pus or a bad smell coming from your wound. Your wound or the area around your wound feels warm to the touch. Get help right away if: You have bleeding that does not stop, even when you apply pressure to the wound. You have a temperature that is higher than 100.4 F (38 C). The affected finger or toe looks white or black. Summary Nail avulsion is when a nail tears away from the nail bed due to an accident or injury. Follow instructions from your health care provider about how to take care of your wound. Keep the injured hand or foot raised above the level of your heart as much as possible in the first48 hours after the injury. This helps to reduce pain and swelling. Check your wound every day for signs of infection. Contact a health care provider if you have increased redness, swelling, or pain around your wound. This information is not intended to replace advice given to you by your health care provider. Make sure you discuss any questions you have with your health care provider. Document Revised: 04/09/2022 Document Reviewed: 04/09/2022 Central Desktop Patient Education 2022 [employer]. Follow Up Care 02/14/2023 10:50:14 With:Grady Lee Address: [address] [place] [id number] Business (1) When:02/17/2023 12:29:53 With:CLINTON FUENTES Address: [address] [facility] [place] [address]- Business (1) When:Within 3 Day(s) [facility]08-20-2023 Evaluation + Plan noteExtracted from: Title:ED Note Author:Deshawn MOHR, Daisy Moss Date:02/14/23 1. Acute traumatic pain (G89 .11: Acute pain due to trauma) Ordered: acetaminophen-oxycodone, 1 tab(s), Oral, q6hr, 12 tab(s), Refill(s) 0, [facility] 1985, 177, cm, 02/14/23 10:56:00 EDT, Height/Length Dosing, 80, kg, 02/14/23 10:56:00 EDT, Weight Dosing 2. Avulsion of nail of left thumb (S61.102A: Unspecified open wound of left thumb with damage to nail, initial encounter) Ordered: acetaminophen-oxycodone, 1 tab(s), Oral, q6hr, 12 tab(s), Refill(s) 0, [facility] 1985, 177, cm, 02/14/23 10:56:00 EDT, Height/Length Dosing, 80, kg, 02/14/23 10:56:00 EDT, Weight Dosing 3. Avulsion of skin of left thumb (S61.002A: Unspecified open wound of left thumb without damage to nail, initial encounter) Ordered: acetaminophen-oxycodone, 1 tab(s), Oral, q6hr, 12 tab(s), Refill(s) 0, [facility] 1985, 177, cm, 02/14/23 10:56:00 EDT, Height/Length Dosing, 80, kg, 02/14/23 10:56:00 EDT, Weight Dosing Orders: cephalexin, 500 mg = 1 cap(s), Oral, QID, X 14 day(s), # 56 cap(s), Refills(s) 0, Pharmacy: [facility] 1985, 177, cm, 02/14/23 10:56:00 EDT, Height/Length Dosing, 80, kg, 02/14/23 10:56:00 EDT, Weight Dosing ibuprofen, 600 mg = 1 tab(s), Oral, q6hr, # 40 tab(s), Refills(s) 0, Pharmacy: [facility], 177, cm, 02/14/23 10:56:00 EDT, Height/Length Dosing, 80, kg, 02/14/23 10:56:00 EDT, Weight Dosing tetanus/diphtheria/pertussis, acel (Tdap), 0.5 mL, Injection, Intramuscular-Immunization, Once, Stop date 02/14/23 11:10:00 EDT, STAT, Start date 02/14/23 11:10:00 EDT [facility]08-14-2023 Evaluation note* Encounter Date Diagnosis Assessment Notes Treatment Notes Treatment Clinical Notes Jan, Primary hypertension (ICD-10 - I10) 14 Jan, 2023 Elevated cholesterol (ICD-10 - E78.00) 14 Jan, 2023 Screening PSA (prostate specific antigen) (ICD-10 - Z12.5) Jan, High risk medication use (ICD-10 - Z79.899) [facility] Other 09-01-2019 History general Narrative - Reported* Type Description Date Medical History Seasonal allergic rhinitis due t o pollen Medical History Essential hypertension Medical History Elevated cholesterol Surgical History Colonoscopy 02/2019 Surgical History Left foot surgery 01/26/2019 Hospitalization History see surgical history [facility] Other Evaluation + Plan note Future Appointments Appointment Date:08/16/2024 12:00:00 PM Scheduled Provider: Location[facility] Appointment Type:CT Abdomen/Pelvis Combo (FT) Appointment Date:08/18/2024 02:30:00 PM Scheduled Provider: Location:[facility] Appointment Type:Urology CALL PAT FT Appointment Date:08/21/2024 02:15:00 PM Scheduled Provider: Location:[facility] Appointment Type:Urology FT Diagnostic Tests Pending * Urine Cytology ([facility]) 08/14/24 Future Scheduled Tests Radiology* CT Urogram 08/16/24 [facility] Evaluation + Plan note Future Appointments Appointment Date:08/16/2024 12:00:00 PM Scheduled Provider: Location[facility] Appointment Type:CT Abdomen/Pelvis Combo (FT) Appointment Date:08/18/2024 02:30:00 PM Scheduled Provider: Location:[facility] Appointment Type:Urology CALL PAT FT Appointment Date:08/21/2024 02:15:00 PM Scheduled Provider: Location:[facility] Appointment Type:Urology FT Future Scheduled Tests Radiology* CT Urogram 08/16/24 [facility] Evaluation + Plan note Future Appointments Appointment Date:08/18/2024 02:30:00 PM Scheduled Provider: Location:[facility] Appointment Type:Urology CALL PAT FT Appointment Date:08/21/2024 02:15:00 PM Scheduled Provider: Location:[facility] Appointment Type:Urology FT [facility] Evaluation + Plan note Future Appointments Appointment Date:08/29/2024 12:30:00 PM Scheduled Provider: Location:[facility] Appointment Type:Surgical PAT FT Appointment Date:09/05/2024 01:00:00 PM Scheduled Provider: Location:[facility] Appointment Type:Surgery FT [facility] Evaluation + Plan note Future Appointments Appointment Date:08/30/2024 08:00:00 AM Scheduled Provider: Location:[facility] Appointment Type:Surgery FT [facility] evalujycub noteNo InformationNosaint [facility] [employer] Other Evaluxrlzm note* Diagnosis Onset Date Resolution Status Benign prostatic hyperplasia with lower urinary tract symptoms acute GERD (gastroesophageal reflux disease) acute Hypertension acute Medicare annual wellness visit, subsequent acute Screening PSA (prostate specific antigen) acute [facility] Work Phone: Evaluation noteNo assessment information available [facility] Work Phone: History general Narrative - Reported* Type Description Date Surgical History Problem Title : COLONOSCOPY (45 378), Problem Status : Active, Surgical History Problem Title : EGD (34167), Pr oblem Status : Active, Surgical History Problem Title : past surgical history reviewed, Problem Description : past surgical history reviewed, Problem Comment : reviewed - no changes required, Problem Status : Resolved, Surgical History Problem Title : surg ical procedures, hx of, Problem Description : surgical procedures, hx of, Problem Comment : Left Foot Surgery (removed bone fragment) Tonsillectomy Left Knee Arthroscopy 01/2019, Problem Status : Active, Surgical History Problem Title : surg ical procedures, hx of, Problem Description : surgical procedures, hx of, Problem Comment : Left Foot Surgery (removed bone fragment) Tonsillectomy, Problem Status : Resolved, [facility] Other Hospital course Narrative No data available for this section [facility] No data available for this section [facility] Progress note No data available for this section [facility] Summary Purpose Family History Relationship Condition Age at Onset Recorded Date/T eleanor mother Diabetes mellitus Unknown father Myocardial infarction Unknown Advance Directives Advance Directive Response Recorded Date/ Time Advance Directives No February 9:35am Advance Directive Response Recorded Date/ Time Advance Directives No February 8:35am Chief Complaint and Reason for Visit Chief Complaint Wellness Reason for Visit Benign prostatic hyp erplasia with lower urinary tract symptoms GERD (gastroesophageal reflux disease) Hypertension Medicare annual wellness visit, subsequent Screening PSA (prostate specific antigen) Chief Complaint Admit Date ER f/u blood in urine August 02, 2024 1:32pm Chief Complaint Admit Date ER f/u blood in urine August 02, 2024 1:32pm Amb Documentation August 31, 2024 1:[address] [facility], Hypertension, PSA/6 month f/u [facility] 2024 9:54am Reason for Visit Admit Date Acute prostatitis with hematuria Februar 2024 1:32pm Benign prostatic hyperplasia with lower urinary tract symptoms August 02, 2024 1:32pm Hematuria August 02, 2024 1 :32pm Hypertension August 02, 2024 1 :32pm Benign prostatic hyperplasia with lower urinary tract symptoms September 07, 2024 9:54am Hematuria September 07, 2024 9:5 4am Hypertension September 07, 2024 9:5 4am Chief Complaint Admit Date [facility], Hypertension, PSA/6 month f/u [facility] 2024 9:54am vertigo December 01, 2024 9:01a m Reason for Visit Admit Date Benign prostatic hyperplasia with lower urinary tract symptoms September 07, 2024 9:54am Hematuria September 07, 2024 9:5 4am Hypertension September 07, 2024 9:5 4am Hypertension December 01, 2024 9:01a m BPPV (benign paroxysmal positional verti go) December 01, 2024 9:01am Impacted cerumen of both ears December 01, 2024 9:01am Additional Source Comments (unrecognized sect ion and content) No Status Records FoundNo Status Records FoundNo Status Records FoundNo Status Records FoundNo Status Records FoundNo Status Records FoundNo Status Records FoundNo Status Records FoundNo Status Records FoundNo Status Records FoundNo Status Records FoundNo Status Records FoundNo Status Records FoundNo Status Records Found INFORMATION SOURCE (unrecogn ized section and content) DATE CREATED AUTHOR 02/25/2022 [facility] DATE CREATED AUTHOR AUTHOR'S ORGANIZ ATION 08/02/2024 [facility] DATE CREATED AUTHOR AUTHOR'S ORGANIZ ATION 08/04/2024 [facility] DATE CREATED AUTHOR AUTHOR'S ORGANIZ ATION 08/18/2024 [facility] DATE CREATED AUTHOR AUTHOR'S ORGANIZ ATION 08/21/2024 [facility] DATE CREATED AUTHOR AUTHOR'S ORGANIZ ATION 08/31/2024 [facility] DATE CREATED AUTHOR AUTHOR'S ORGANIZ ATION 09/07/2024 [facility] DATE CREATED AUTHOR AUTHOR'S ORGANIZ ATION 10/25/2024 [facility] REASON FOR VISIT (unrecogniz ed section and content) [phone] COVID +BP check MCR ANNUAL WELLNESSOrders Patient Care team informatio n (unrecognized section and content) Team Status: Active Member Role Status Dates Clinton Fuentes DO Primary Care Provider Active Team Status: Inactive Member Role Status Dates Clinton Fuentes DO Primary Care Provide r, Attending Provider Active Start: August 02, 2024 End: August 02, 2024 Team Status: Active Member Role Status Dates Clinton Fuentes , DO Primary Care Provider Active Start: August 31, 2024 Velia Greenfield CMA Attending Provider Active Start: August 31, 2024 Team Status: Inactive Member Role Status Dates Clinton Fuentes , DO Primary Care Provide r, Attending Provider Active Start: September 07, 2024 End: September 07, 2024 Team Status: Active Member Role Status Dates Clinton Fuentes , DO Primary Care Provide r, Attending Provider Active Start: June 06, 2024 Team Status: Inactive Member Role Status Dates Clinton Fuentes , DO Primary Care Provide r, Attending Provider Active Start: March 01, 2024 End: March 01, 2024 Team Status: Inactive Member Role Status Dates Clinton Fuentes , DO Primary Care Provide r, Attending Provider Active Start: December 01, 2024 End: December 01, 2024 Goals (unrecognized section and content) Goals may be documented in a n alternate section FOR RECORDS PERTAINING TO PATIENTS WHO ARE OR HAVE BEEN ENROLLED IN A CHEMICAL DEPENDENCY/SUBSTANCEABUSE PROGRAM, SOME INFORMATION MAY BE OMITTED. This clinical summary was aggregated from multiple sources. Caution should be exercised in using it in the provision of clinical care. This summary normalizes information from multiple sources, and as a consequence, information in this document may materially change the coding, format and clinical context of patient data. In addition, data may be omitted in some cases. CLINICAL DECISIONS SHOULD BE BASED ON THE PRIMARY CLINICAL RECORDS. [employer] provides no warranty or guarantee of the accuracy or completeness of information in this document.
[2025-03-05 13:18] LABS: Alanine Aminotransferase 20 U/L (16-63); Albumin Globulin Ratio 1.2; Albumin Level 4.1 g/dL (3.4-5.0); Alkaline Phosphatase 102 U/L (46-116); Anion Gap 11.2; Aspartate Amino Transferase 22 U/L (15-37); Blood Urea Nitrogen 16.0 mg/dL (7.0-18.0); Calcium 8.7 mg/dL (8.5-10.1); Carbon Dioxide 30.2 mmol/L (21.0-32.0); Chloride 106 mmol/L (98-107); Cholesterol 196 mg/dL (<=200); Estimated GFR (African America >60 (>=60 mL/min/1.73m^2); Estimated GFR (Non-African Ame >60 (>=60 mL/min/1.73m^2); Globulin 3.3 g/dL; Glucose 94 mg/dL (74-106); HDL Cholesterol 54 mg/dL (40-60); Potassium 4.4 mmol/L (3.5-5.1); Sodium 143 mmol/L (136-145); Total Protein 7.4 g/dL (6.4-8.2); Triglycerides 70 mg/dL (<=150); VLDL CHOLESTEROL 14.0 mg/dL
[2025-03-05 14:08] LABS: Hematocrit 41.1 % (42.0-54.0); Hemoglobin 14.1 g/dL (14.0-18.0); Immature Granulocytes Abs Auto 0.02 10^3/uL (0.00-0.03); Immature Granulocytes Pct Auto 0.3 % (0.0-0.5); Lymphocytes Absolute Auto 1.4 10^3/uL (1.2-3.8); Mean Corpuscular HGB Conc 34.3 g/dL (29.9-35.2); Mean Corpuscular Hemoglobin 31.5 pg (25.9-34.0); Mean Corpuscular Volume 91.9 fL (80.0-94.0); Platelet Count 236 10^3/uL (150-450); Red Blood Count 4.47 10^6/uL (4.70-6.10); White Blood Count 7.5 10^3/uL (4.0-11.0)
== END 2025-03-05 12:22 | disposition home or self-care (01) ==
LOC: LAB 12:23
PROVIDERS: PCP Internal Medicine; Visit Provider Internal Medicine
DX: E78.00 Pure hypercholesterolemia, unspecified (principal); I10 Essential (primary) hypertension; Z12.5 Encounter for screening for malignant neoplasm of prostate
CPT/HCPCS: 36415; 80053; 80061; 85025; G0103